=== PATIENT | male | born 1950 | race Caucasian/White ===

== ENCOUNTER 2021-04-23 01:19 | Outpatient (CLI) | payer MEDICARE, OTHER, SELFPAY ==
--- NOTE | 2021-04-23 | DI.RAD_ITS ---
Exam(s) XR CERVICAL SPINE 1V EXAM: XR CERVICAL SPINE 1V CLINICAL HISTORY: S/P CERVICAL SPINE FUSION,Z98.1. TECHNIQUE: 2D digital imaging was performed. COMPARISON: No exams were available for comparison FINDINGS: Single lateral view shows hardware spanning the C3-4 level with disc spacer. The alignment appears n ormal. There remaining discs spaces are well maintained. There are facet joint degenerative changes . There is no prevertebral soft tissue swelling.. IMPRESSION: Postsurgical and degenerative changes. DATA REPOSITORY: RADIATION DOSE DELIVERED:
== END 2021-04-23 01:39 ==
PROVIDERS: Visit Provider Physician Assistant Surgical
DX: Z98.1 Arthrodesis status (principal); M47.812 Spondylosis without myelopathy or radiculopathy, cervical region
CPT/HCPCS: 72020

== ENCOUNTER 2021-06-05 08:32 | Outpatient (CLI) | payer MEDICARE, OTHER, SELFPAY ==
[2021-06-05 10:44] LABS: Source Nasal/Nares
[2021-06-05 17:36] LABS: COVID-19 PCR Negative (Negative)
== END 2021-06-05 08:33 | disposition home or self-care (01) ==
LOC: LBO 08:32
PROVIDERS: Visit Provider Nurse Practitioner Primary Care
DX: Z20.822 Contact with and (suspected) exposure to COVID-19 (principal); Z01.818 Encounter for other preprocedural examination
CPT/HCPCS: 87635

== ENCOUNTER 2021-07-05 00:54 | Outpatient (CLI) | payer OTHER, SELFPAY ==
--- NOTE | 2021-07-05 | DI.RAD_ITS ---
Exam(s) XR CERVICAL SP FORTUNE TRAUMA 2-3V EXAM: XR CERVICAL SP FORTUNE TRAUMA 2-3V CLINICAL HISTORY: S/P CERVICAL SPINAL FUSION, Z98.1. TECHNIQUE: 2D digital imaging was performed. COMPARISON: CR XR CERVICAL SPINE 1V from 04/23/2021 FINDINGS: Three lateral views of cervical spine including neutral, flexion, and extension. Compared to 04/23/2021. Again noted is C3-4 level intervertebral disc space hardware device which appears in unchanged in pos ition. There is no significant prevertebral soft tissue swelling at this level. The most anterior a spect of the radiopaque device is flush with the anterior cortex of C4 on the three views. The most anterosuperior aspect of the device is less than 1 millimeter anterior to the anterior cortex of C3 a nd remain stable on all 3 images. There is no abnormal lucency around the screws in C3. Very subtle lucency seen around the screws in C4. With respect of the C3 and C4 vertebral bodies, these do not exhibit significant excursion with flexi on extension when compared to the neutral images. In addition, the contiguous vertebral body is also remain stable and without significant excursion on flexion and extension. There is moderate facet arthropathy, most evident at C4-5 level. IMPRESSION: DATA REPOSITORY: RADIATION DOSE DELIVERED:
--- NOTE | 2021-07-05 | DI.RAD_ITS ---
Exam(s) XR LUMBAR SPINE 1V ONLY EXAM: XR LUMBAR SPINE 1V ONLY CLINICAL HISTORY: S/P LUMBAR FUSION, Z98.1, LUMBAR STENOSIS WITH NEUROGENIC CLAUDICATION. TECHNIQUE: 2D digital imaging was performed. COMPARISON: No exams were available for comparison FINDINGS: Single lateral view: There is posterior fusion hardware at L4-5 level comprised of posterior fusion bars secured by intrap edicular screws at L4 and L5 levels. There is also an intervertebral disc space divide ower at L4-5 level which appears to be in satisfactory position. There is no listhesis. No prominent disc space narrowing evident at this level. However, higher up there is retrolisthesis of L1 upon L2 and L1 and L2 upon L3 and there is some disc space narrowing at these 2 levels, more so at L1-2 level. No hardware fracture. No osseous fractures nor radiographic evidence of osteomyelitis evident on thi s single. IMPRESSION: DATA REPOSITORY: RADIATION DOSE DELIVERED:
== END 2021-07-05 01:14 ==
PROVIDERS: Visit Provider Neurological Surgery
DX: M51.36 Other intervertebral disc degeneration, lumbar region (principal); Z98.1 Arthrodesis status; M48.062 Spinal stenosis, lumbar region with neurogenic claudication; M47.812 Spondylosis without myelopathy or radiculopathy, cervical region
CPT/HCPCS: 72020; 72040

== ENCOUNTER 2021-09-07 00:14 | Outpatient (CLI) | payer OTHER, SELFPAY ==
--- NOTE | 2021-09-07 11:19 | DI.RAD_ITS ---
Exam(s) XR LUMBAR SPINE FLEX/EXT ONLY EXAM: XR LUMBAR SPINE FLEX/EXT ONLY CLINICAL HISTORY: [facility]# [id number] S/P LUMBAR FUSION Z98.1 LUMBAR STENOSIS M48.062. TECHNIQUE: 2D digital imaging was performed of the lumbar spine. Two images were obtained. Lateral flexion and extension views were obtained. COMPARISON: CR XR LUMBAR SPINE 1V ONLY from 07/05/2021 FINDINGS: BONES: There again seen postsurgical changes of an L4-L5 posterior fusion. Vertebral bodies are unre markable. Endplate hypertrophic changes are seen in the lower thoracic and upper lumbar spine. Mult ilevel facet arthropathy is seen. DISKS: There is disc space narrowing at T12-L1 through L2-L3. ALIGNMENT: There is stable alignment of the lumbar spine with flexion and extension. There has been no significant change in alignment compared to the examination from 07/05/2021. No spondylolysis or s pondylolisthesis. SOFT TISSUE: Normal. IMPRESSION: Stable alignment of the lumbar spine. DATA REPOSITORY: RADIATION DOSE DELIVERED:
== END 2021-09-07 00:34 ==
PROVIDERS: Visit Provider Neurological Surgery
DX: M48.062 Spinal stenosis, lumbar region with neurogenic claudication (principal); Z98.1 Arthrodesis status
CPT/HCPCS: 72120

== ENCOUNTER 2022-04-07 10:03 | Emergency (ER) | payer OTHER, SELFPAY ==
[2022-04-07 10:07] VITALS: BP 111/58; PULSE 61; RESP 18; O2SAT 96
[2022-04-07 10:16] VITALS: TEMP 36.8
--- NOTE | 2022-04-07 11:00 | DI.RAD_ITS ---
Exam(s) XR SHOULDER LT COMPLETE 2+V EXAM: XR SHOULDER LT COMPLETE 2+V CLINICAL HISTORY: fall, ac deformity. TECHNIQUE: 2D digital imaging was performed. COMPARISON: No exams were available for comparison FINDINGS: 3 views No evidence of fracture or dislocation. Mild diminution of the subacromial space. No calcifications in the subacromial space. No obvious degenerative changes in the glenohumeral joint. Mild degenera tive changes in the AC joint. IMPRESSION: No fracture or dislocation. Mild diminution of the subacromial space. This may indicate rotator cuf f pathology. DATA REPOSITORY: RADIATION DOSE DELIVERED:
--- NOTE | 2022-04-07 11:00 | DI.CT_ITS ---
Exam(s) CT HEAD WO EXAM: CT HEAD WO CLINICAL HISTORY: fall on eliquis. TECHNIQUE: Imaging Protocol: Axial computed tomography images with coronal and sagittal reformatted images were created and reviewed COMPARISON: CT HEAD WITHOUT CONTRAST from 07/26/2017 FINDINGS: There are no skull fractures nor fluid in the visualized paranasal sinuses. There is no evidence of intracranial hemorrhage, mass effect, or shift of midline structures. There are no extra-axial fluid collections. The ventricles are not enlarged or shifted and there is no blo od within the ventricular system nor within the basal cisterns. There is an evolved right occipital-parietal lobe nonhemorrhagic infarct. No new mass effect. IMPRESSION: No acute intracranial hemorrhage, given the trauma history here. Evolved right occipital parietal infarct. This is more evident than on July 2017. RADIATION DOSE DELIVERED: 874.34mGy.cm Total DLP DATA REPOSITORY: All CT scans at this facility are submitted to the National Radiology Data Registry (NRDR) Dose Index Registry (DIR) with the [employer] ([employer]). RADIATION OPTIMIZATION: All CT scans at this facility use at least one of these dose optimization te chniques: automated exposure control; mA and/or kV adjustment per patient size (includes targeted exa ms where dose is matched to clinical indication); or iterative reconstruction.
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
--- NOTE | 2022-04-07 12:35 | DI.VRAD_ITS ---
PROCEDURE INFORMATION: Exam: CT Head Without Contrast Exam date and time: 04/07/2022 12:23 PM Age: 72 years old Clinical indication: Cough, R/O acute disease TECHNIQUE: Imaging protocol: Computed tomography of the head without contrast. COMPARISON: CT HEAD WITHOUT CONTRAST 07/26/2017 11:27 AM FINDINGS: Brain: Age-related involutional changes and chronic microvascular ischemic disease. Right parietal small chronic infarct. No evidence for acute transcortical infarct. No mass effect or midline shift. No extra-axial collection. No acute intracranial hemorrhage. Basal cisterns are patent. Cerebral ventricles: No ventriculomegaly. Paranasal sinuses: Visualized sinuses are unremarkable. No fluid levels. Mastoid air cells: Visualized mastoid air cells are well aerated. Bones/joints: Unremarkable. No acute fracture. Soft tissues: Unremarkable. IMPRESSION: No evidence for acute transcortical infarct, acute intracranial hemorrhage, or mass effect. Dictated and Authenticated by: Toby Sadler MD. Ordering:VARSHA Maldonado MD
--- NOTE | 2022-04-07 13:03 | DI.VRAD_ITS ---
PROCEDURE INFORMATION: Exam: XR Left Shoulder Exam date and time: 04/07/2022 12:30 PM Age: 72 years old Clinical indication: Other: Fall, ac deformity TECHNIQUE: Imaging protocol: Radiologic exam of the Left shoulder. Views: 2 or more views. COMPARISON: CR XR CERVICAL SP FORTUNE TRAUMA 2-3V 07/05/2021 10:10 AM FINDINGS: Bones/joints: There is no evidence of acute fracture. There is no evidence of joint malalignment or dislocation. Degenerative changes of the acromioclavicular joint. Soft tissues: No focal soft tissue swelling. IMPRESSION: 1. No evidence of acute fracture. 2. No evidence of acute dislocation. 3. Degenerative changes of the acromioclavicular joint. Dictated and Authenticated by: Joseph Ward MD. Ordering:VARSHA Maldonado MD
[2022-04-07 13:30] VITALS: BP 123/71; PULSE 60; RESP 17; O2SAT 96
== END 2022-04-07 14:10 | disposition home or self-care (01) ==
PROVIDERS: Emergency Provider Physician Assistant
DX: S49.92XA Unspecified injury of left shoulder and upper arm, initial encounter (principal); Z87.891 Personal history of nicotine dependence; Z86.711 Personal history of pulmonary embolism; Z79.01 Long term (current) use of anticoagulants; V18.4XXA Pedal cycle driver injured in noncollision transport accident in traffic accident, initial encounter
CPT/HCPCS: 99284; 70450; 73030

== ENCOUNTER 2022-08-08 07:06 | Day surgery (SDC) | payer OTHER, SELFPAY ==
--- NOTE | 2022-08-07 20:14 | W.PM.DSUDISC ---
Date of service: 08/08/22 Time of Service: 09:10 Discharge Plan Disposition Patient Disposition: Home Condition: Good Discharge Details Reason For Visit: EGD Attending Provider: Gideon Loyd Primary Care Provider: Romana Cox Home Meds and New Rx's Prescriptions: Continued Xiidra 5 % dropperette 1 drp ophthalmic (eye) BID Rx Instructions: administer approximately 12 hours apart diclofenac sodium [Arthritis Pain (diclofenac)] 1 % gel 2 g topical QID Rx Instructions: apply to single elbow, wrist or hand; for hand includes palm/fingers/back of hand loratadine 10 mg tablet 10 mg PO DAILY fluticasone propionate [Flonase Allergy Relief] 50 mcg/actuation spray,suspension 1 spray intranasal DAILY Rx Instructions: administer into each nostril epinephrine 0.3 mg/0.3 mL auto-injector 0.3 mg IM ONCE Rx Instructions: as a single dose; may repeat once finasteride 5 mg tablet 5 mg PO DAILY magnesium oxide 140 mg capsule 140 mg PO DAILY omeprazole 20 mg capsule,delayed release(DR/EC) 40 mg PO DAILY modafinil 200 mg tablet 200 mg PO BID PRN furosemide 80 mg tablet 80 mg PO DAILY lidocaine 5 % adhesive patch,medicated 1 patch topical DAILY Rx Instructions: leave on most painful area for up to 12 hrs tamsulosin [Flomax] 0.4 MG capsule 0.8 mg PO DAILY montelukast 10 MG tablet 10 mg PO DAILY acetaminophen [Tylenol] 325 MG tablet 325 - 650 mg PO PRN PRN (Reason: Pain Or Temperature) albuterol sulfate [ProAir HFA] 200 PUFF HFA aerosol inhaler 2 puff Inhalation BID PRN (Reason: Wheezing) oxybutynin chloride 10 mg tablet extended release 24hr 1 tab PO 1XD levothyroxine 25 MCG tablet 50 mcg PO DAILY Held Eliquis 2.5 MG tablet 2.5 mg PO BID Hold Instructions: Resume on 08/08/22. Discharge Instructions Additional Instructions: 1. If tolerated, consume a soft, low fiber diet for 1-2 days. [address] Do not drive, drink alcohol, operate machinery, make critical decisions, or do activities that require coordination or balance for 24 hours. 3. You may experience a sore throat for 24 to 48 hours. You may use throat lozenges or gargle with warm salt water to relieve the discomfort. 4. Because air was put into your stomach during the procedure, you may experience some belching. 5. Go directly to the emergency room if you notice any of the following: Develop chills (warm to touch), or if you have a thermometer and your temperature is above 101 Difficulty breathing or difficultly swallowing Persistent vomiting Severe abdominal pain, other than gas cramps Severe chest pain Black, tarry stools Any bleeding ? exceeding one tablespoon 6. Call your physician if the site where your intravenous was started becomes red, swollen, painful, and warm to touch. 7. Your physician has reviewed your pre-procedure medications. Please continue to take those medications as previously ordered. You will be given specific information/education regarding any changes to your medications before leaving. 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 I did not see any evidence of narrowing (or stricture) along the length of your esophagus. In fact, the esophagus appeared mostly normal. I did perform some biopsies around your gastroesophageal junction seen to carry the diagnosis of Land's esophagus on your previous endoscopy. I also saw 3 lesions within your stomach. I performed biopsies of these. I will notify you when we get the results of the pathology report.
--- NOTE | 2022-08-07 20:19 | W.PM.ENDDOP ---
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 PROCEDURE START TIME: 08:41 PROCEDURE END TIME: 08:54 FINDINGS: 3 polypoid lesions in the gastric antrum PROCEDURE DESCRIPTION: After the initiation of monitored anesthetic care, and with the assistance of a bite block, I advanced a standard gastroscope through the mouth past the hypopharynx and into the esophagus.? Under the direct vision of the scope, I advanced down the esophagus into the stomach.? Once I entered the stomach, I performed a brief inspection, followed by retroflexion towards the gastric cardia.? This appeared normal.? After that, I gently advanced the scope around the incisura angularis and examined the pylorus.? There were 3 masses in the gastric antrum, 2 of them being immediately adjacent to the pylorus. The largest was approximately 1.5 cm smallest was approximately 0.75 cm. None were ulcerated. The edges were not particularly heaped up. There were no visible vessels in any of the lesions. Although I believe it would be technically possible to resect these endoscopically, the 2 larger lesions to raise some concern. In that regard, I felt the safest thing to do at this point was performed biopsies to help establish the pathology. Therefore, I performed cold forcep biopsies of the lesions. There was minimal bleeding. I then gently desufflated some of the stomach, and withdrew the endoscope into the distal esophagus. The GE junction was around 49 cm. Z-line was mostly normal-appearing. Varying between 48 and 49 cm. I performed four-quadrant biopsies here. ?Finally, I withdrew the scope along the length of the esophagus taking great care to examine the entirety of the mucosa. There was some white particulate matter that was easily irrigated clear.? I did not appreciate any other abnormalities.
--- NOTE | 2022-08-08 07:03 | ANES.PREOP_ITS ---
General Info Date of Service Date Performed: 08/08/22 Height: 6 ft Weight: 81.9 kg Body Mass Index (BMI): 24.5 Surgical Procedure: Operation Date: 08/08/22 08:35 Proposed Procedure Side Surgeon p Gastroscopy with Biopsy, Possible Dilation Gideon Loyd MD Meds Allergies and Home Medications Allergies Allergy/AdvReac Type Severity Reaction Status Date / Time peanut Allergy Severe Anaphylaxsi Verified 08/08/22 07:24 s peas Allergy Severe Anaphylaxsi Verified 08/08/22 07:24 s tree nut Allergy Severe Anaphylaxsi Verified 08/08/22 07:24 s lisinopril AdvReac Verified 08/08/22 07:24 sutures Allergy Unknown Uncoded 08/08/22 07:24 Home Medication Medication Instructions Recorded montelukast 10 mg tablet 10 mg PO DAILY 01/25/13 tamsulosin 0.4 mg capsule (Flomax) 0.8 mg PO DAILY 01/25/13 apixaban 2.5 mg tablet (Eliquis) 2.5 mg PO BID 09/18/15 acetaminophen 325 mg tablet 325 - 650 mg PO PRN PRN Pain Or 09/22/15 (Tylenol) Temperature albuterol sulfate 90 mcg/actuation 2 puff inhalation BID PRN Wheezing 10/02/15 aerosol inhaler (ProAir HFA) levothyroxine 25 mcg tablet 50 mcg PO DAILY 12/14/17 oxybutynin chloride 10 mg 1 tab PO 1XD 04/07/22 tablet,extended release 24 hr diclofenac sodium 1 % topical gel 2 g topical QID 04/22/22 (Arthritis Pain (diclofenac)) fluticasone propionate 50 1 spray intranasal DAILY 04/22/22 mcg/actuation nasal spray,suspension (Flonase Allergy Relief) lifitegrast 5 % eye drops in a 1 drp ophthalmic (eye) BID 04/22/22 dropperette (Xiidra) loratadine 10 mg tablet 10 mg PO DAILY 04/22/22 finasteride 5 mg tablet 5 mg PO DAILY 06/11/22 magnesium oxide 140 mg capsule 140 mg PO DAILY 06/11/22 omeprazole 20 mg capsule,delayed 40 mg PO DAILY 06/11/22 release modafinil 200 mg tablet 200 mg PO BID PRN 06/20/22 furosemide 80 mg tablet 80 mg PO DAILY 07/08/22 lidocaine 5 % topical patch 1 patch topical DAILY 07/08/22 epinephrine 0.3 mg/0.3 mL 0.3 mg IM ONCE 07/23/22 injection, auto-injector Current Visit Medications: Current Medications Generic Name Dose Route Start Last Admin Trade Name Freq PRN Reason Stop Dose Admin Hyoscyamine Sulfate 0.125 mg 08/07/22 20:20 Hyoscyamine 0.125 Mg Sl/Oral/Chew SL DIRECTED PRN Ringer's Solution 1,000 mls @ 80 mls/hr 08/08/22 06:00 IV 09/06/22 23:59 [facility]ION [facility] IV Miscellaneous Supplies 1 each 08/08/22 06:00 Iv Access IV 09/06/22 23:59 DIRECTED JOY Ondansetron HCl 4 mg 08/07/22 20:20 Ondansetron 4 Mg/2 Ml Vial IVP Q4H PRN PRN Nausea / Vomiting Sodium Chloride 0 ml 08/08/22 06:00 Normal Saline Flush 10 Ml Syr IV 09/06/22 23:59 PRN PRN Sodium Chloride 0 ml 08/08/22 06:00 Normal Saline 10 Ml Vial IJ 09/06/22 23:59 DIRECTED PRN Sterile Water 0 ml 08/08/22 06:00 Water,Injection,Sterile 10 Ml Vial IJ 09/06/22 23:59 DIRECTED PRN PFSH Active Problems Active Problems: Problem Status Onset Code Intertrochanteric fracture of right hip 09/18/15 S72.141A Asthma J45.909 GERD (gastroesophageal reflux disease) K21.9 H/O tobacco use, presenting hazards to health Z87.891 H/O deep venous thrombosis Z86.718 h/o tia H/O surgical procedure Z98.89 Impacted esophageal foreign body T18.108A Traumatic arthropathy, left shoulder M12.512 Osteoarthritis of left knee M17.12 Land's esophagus without dysplasia K22.70 Benign neoplasm of skin D23.9 Osteoarthritis (arthritis due to wear and tear of joints) M19.90 Osteopenia M85.80 Dysphagia R13.10 Chronic GERD K21.9 Medical History Medical History Cerebrovascular disease Cervicalgia Chronic gingivitis, plaque induced Dermatitis Paresthesia of upper limb (07/12/13) Pityriasis lichenoides chronica Spinal stenosis, lumbar region with neurogenic claudication Medical History Comments:: Per patient after lung surgery in 2016 for pneumonia he went in to respiratory arrest from too much medication in the Recovery room. Surgical History Surgical History EGD - MAC (12/14/17) History of back surgery History of cervical spinal surgery History of lung surgery History of shoulder surgery Hx of fracture of femur s/p repair w/odessa placement Hx of tonsillectomy Hx of total knee arthroplasty Presence of automatic cardioverter/defibrillator (AICD) Tobacco Smoking/Tobacco Use Status: Former Tobacco Use Alcohol Alcohol Intake: never Substance Use Substance use: Never Substance use type: does not use Vital Signs and Lab Results Lab Results Blood Type / Crossmatch: No Data to Display Complete Blood Count: No Data to Display Complete Metabolic Panel: No Data to Display Liver Function Panel: No Data to Display Coagulation Panel: No Data to Display Cardiac Panel: No Data to Display Arterial Blood Gas: No Data to Display Venous Blood Gas: No Data to Display Pancreas Panel: No Data to Display Thyroid Panel: No Data to Display Infectious Disease: No Data to Display Blood Cultures: No Data to Display Toxicology Panel: No Data to Display Imaging and Studies Imaging and Studies Study information below may be from another EMR and interpreted by another provider. Please see original notes in EMR for more complete details. Echocardiogram Summary: See scanned [facility] records: ECHO this summer was stable to previous in 2020. Severe LA enlargement, moderate MR. Anesthesia Assessment and Plan Anesthesia History Personal History: No History of Anesthesia Complications and Other Family History: No Family History of Anesthesia Complications Exercise Tolerance Exercise Tolerance: Metabolic Equivalents<4 Pertinent Negatives Pertinent Negatives: No Symptoms of GERD Cardiac & Pulmonary Exam Cardiac Exam: Normal S1/S2 Heart Sounds Pulmonary Exam: Clear Bilateral Breath Sounds Implantable Cardiac Device Does patient have a Pacemaker or an ICD?: Yes Device Informatics Physician:: [employer] Reason for Placement:: See [facility] records Date of Last Device Interrogation:: 04/11 Airway Exam Known Difficult Airway: No Mallampati Class: 2 Mouth Opening: Normal (> 3cm) Thyromental Distance: Greater than 3 cm Neck Range of Motion: Limited ROM Neck Circumference: Normal Teeth Condition: Generalized Poor Dentition ASA Classification ASA Score: ASA 3 Emergency Case?: No NPO Status NPO Status: NPO Clears >2 hours, Solids >8 hours Anesthesia Plan Resuscitation Status: Full Code Anesthesia Technique: General Anesthesia Airway Planned: Natural Airway Monitors Used: Standard Monitors Preoperative Comments:: pHTN, moderate MR, Severe LA enlargement, many DVTs, TIAs, asthma, empyemas, respiratory arrest.
[2022-08-08 07:10] VITALS: BP 125/53; PULSE 55; RESP 18; TEMP 36.2; O2SAT 99
[2022-08-08] MEDS: Lactated Ringers 1,000 ML 80 ML IV (07:55)
[2022-08-08 08:20] VITALS: BMI 24.5
--- NOTE | 2022-08-08 08:48 | STOM_PTH ---
PATIENT: Mo Guevara LOC: [facility] U#:[id number] AGE/SX: 72/M ROOM: RE08/08/[address]: Gideon Loyd MD : 1950 BED: DIS: 08/08/2022 SPEC #: [id number] RECD: 08/08/22 12:11 STATUS: DEVENDRA RE #: [id number] KARINE: 08/08/22 08:[address]: Gideon Loyd DEPT: Surgical Specimen RECD BY: Erica Bland ENTERED: 08/08/22 12:12 SP TYPE: STOMACH OTHR DR: Rmoana Cox Tissues: 1 - STOMACH BIOPSY 2 - ESOPHAGUS BIOPSY Procedures: GROSS AND MICRO LEVEL 4 Comments: [id number]
[2022-08-08 09:02] VITALS: BP 105/60; PULSE 56; RESP 21; TEMP 36.3; O2SAT 95
[2022-08-08 09:40] VITALS: BP 136/79; PULSE 59; RESP 20; TEMP 36.2; O2SAT 98
--- NOTE | 2022-08-08 10:13 | W.ANESPOSTOP ---
Postoperative Evaluation Date, Time and Location Date Performed: 08/08/22 Time Performed: 10:13 Patient Location: Day Surgery Unit Vital Signs Most Recent Imported Vital Signs: Most Recent Vital Signs Temp Pulse Resp BP Pulse Ox 36.2 C L 59 L 20 136/79 98 08/08/22 09:40 08/08/22 09:40 08/08/22 09:40 08/08/22 09:40 08/08/22 09:40 Pain Score Most Recent Pain Score: Most Recent Pain Score Pain Level 0 08/08/22 09:40 Assessment Mental Status: Awake (Alert & Oriented to Patient Baseline) Airway and Respiratory Function: Patent airway with normal (patient baseline) respiratory exam Cardiovascular Function: Hemodynamically Stable Hydration Status: Adequately Hydrated Nausea & Vomiting: No Nausea or Vomiting Pain: Pt. Denies Any Pain Peripheral Nerve Block: Patient did not receive a nerve block
== END 2022-08-08 10:05 | disposition home or self-care (01) ==
PROVIDERS: PCP Physician Assistant; Visit Provider Surgery
PROC: 0D758ZZ Dilation of Esophagus, Via Natural or Artificial Opening Endoscopic (ICD-10-PCS; CPT 43239; principal; 2022-08-08 08:30)
DX: K22.70 Barrett's esophagus without dysplasia (principal); K31.89 Other diseases of stomach and duodenum; K21.9 Gastro-esophageal reflux disease without esophagitis; Z79.01 Long term (current) use of anticoagulants; Z86.718 Personal history of other venous thrombosis and embolism
CPT/HCPCS: 43239; 88305

== ENCOUNTER 2023-05-19 03:08 | Outpatient (CLI) | payer OTHER, SELFPAY ==
[2023-05-19 11:42] LABS: HCT 39.7 % (40.0-50.0); HGB 12.7 g/dL (13.5-17.5); MCH 31.2 pg (27.0-33.0); MCV 98 fL (80-95); MPV 9.8 fL (8.0-11.0); Platelet Count 106 10^3/uL (130-400); RBC 4.07 10^6/uL (4.36-5.78); RDW 13.2 % (11.8-14.1); RDW-SD 46.9 fL; WBC 4.77 10^3/uL (4.4-10.8)
[2023-05-19 12:02] LABS: Anion Gap 7.1 mmol/L (3-11); BUN 22 mg/dL (7-18); CO2 31.9 mmol/L (21.0-32.0); Calcium 9.2 mg/dL (8.5-10.1); Chloride 106 mmol/L (98-107); Estimated GFR 78.98 (mL/min/1.73m2); Glucose 92 mg/dL (74-106); Sodium 145 mmol/L (136-145)
== END 2023-05-19 03:09 | disposition home or self-care (01) ==
PROVIDERS: PCP Physician Assistant; Visit Provider Student in an Organized Health Care Education/Training Program
DX: M17.12 Unilateral primary osteoarthritis, left knee (principal); Z01.818 Encounter for other preprocedural examination
CPT/HCPCS: 36415; 80048; 85027

== ENCOUNTER 2023-05-19 11:44 | Outpatient (CLI) | payer OTHER, SELFPAY ==
--- NOTE | 2023-05-19 10:15 | DI.RAD_ITS ---
Exam(s) XR KNEE LT 1V XR STANDING ALIGNMENT EXAM: XR STANDING ALIGNMENT CLINICAL HISTORY: PRE OP L TKA. TECHNIQUE: 2D digital imaging was performed. Standing AP views were performed from the pelvis throu gh the ankles. COMPARISON: CR RIGHT FEMUR from 11/13/2015 CR KNEE 2 VIEWS (ROUTINE) from 06/05/2022 FINDINGS: BONES: No acute fracture is present. No bony destructive lesion is seen. Intramedullary odessa is noted through the right femur. Old fracture deformities of the distal tibia and fibula. Leg length discrepancy: Approximate 2 centimeter overall leg length discrepancy with the right femora l head projecting superior to the left. JOINTS: Knees: the right total knee prosthesis shows satisfactory alignment. Severe degenerative ch anges noted at the lateral femoral tibial joint space of the left knee with valgus angulation. Mild chondrocalcinosis. The ankle joints are unremarkable. The hip joints maintained. There is acetabular spurring, right greater than left. SOFT TISSUE: Bilateral lower leg edema. IMPRESSION: Severe degenerative changes of the lateral femoral tibial joint of the left knee.. Approximate 2 centimeter overall leg length discrepancy. DATA REPOSITORY: RADIATION DOSE DELIVERED:
== END 2023-05-19 11:45 | disposition home or self-care (01) ==
LOC: DIORS 11:44
PROVIDERS: PCP Physician Assistant; Visit Provider Physician Assistant
DX: M17.12 Unilateral primary osteoarthritis, left knee (principal); Z01.818 Encounter for other preprocedural examination
CPT/HCPCS: 73560; 77073

== ENCOUNTER 2023-06-03 07:32 | Observation (INO) | payer OTHER, SELFPAY ==
[2023-06-03] VITALS (15 sets, daily range): BP systolic 107–161; BP diastolic 44–79; PULSE 46–88; RESP 11–18; TEMP 35.6–36.5; O2SAT 94–99; BMI 22.8
[2023-06-03] MEDS: Celecoxib 200 MG CAP 400 MG PO (09:22)
[2023-06-03] MEDS: Acetaminophen 500 MG TAB 1000 MG PO ×3 (09:23→21:23)
[2023-06-03] MEDS: Lactated Ringers 1,000 ML 80 ML IV (09:23)
[2023-06-03] MEDS: Gabapentin 300 MG CAP PO (09:23)
--- NOTE | 2023-06-03 09:26 | ANES.PREOP_ITS ---
General Info Date of Service Date Performed: 06/03/23 Height: 6 ft Weight: 76.2 kg Body Mass Index (BMI): 22.8 Surgical Procedure: Operation Date: 06/03/23 11:40 Proposed Procedure Side Surgeon p Knee Total Arthroplasty w/OrthAlign, Cemented PS Left Jose Goldberg MD Meds Allergies and Home Medications Allergies Allergy/AdvReac Type Severity Reaction Status Date / Time peanut Allergy Severe Anaphylaxsi Verified 06/03/23 08:49 s peas Allergy Severe Anaphylaxsi Verified 06/03/23 08:49 s tree nut Allergy Severe Anaphylaxsi Verified 06/03/23 08:49 s amoxicillin Allergy Mild Skin Rash Verified 06/03/23 08:49 lisinopril AdvReac cough Verified 06/03/23 08:49 sutures Allergy Unknown inflammed Uncoded 06/03/23 08:49 Home Medication Medication Instructions Recorded montelukast 10 mg tablet 10 mg PO DAILY 01/25/13 tamsulosin 0.4 mg capsule (Flomax) 0.8 mg PO DAILY 01/25/13 apixaban 2.5 mg tablet (Eliquis) 2.5 mg PO BID 09/18/15 acetaminophen 325 mg tablet 325 - 650 mg PO PRN PRN Pain Or 09/22/15 (Tylenol) Temperature albuterol sulfate 90 mcg/actuation 2 puff inhalation BID PRN Wheezing 10/02/15 aerosol inhaler (ProAir HFA) levothyroxine 25 mcg tablet 50 mcg PO DAILY 12/14/17 oxybutynin chloride 10 mg 1 tab PO 1XD 04/07/22 tablet,extended release 24 hr diclofenac sodium 1 % topical gel 2 g topical QID 04/22/22 (Arthritis Pain (diclofenac)) fluticasone propionate 50 1 spray intranasal DAILY 04/22/22 mcg/actuation nasal spray,suspension (Flonase Allergy Relief) lifitegrast 5 % eye drops in a 1 drp ophthalmic (eye) BID 04/22/22 dropperette (Xiidra) loratadine 10 mg tablet 10 mg PO DAILY 04/22/22 finasteride 5 mg tablet 5 mg PO DAILY 06/11/22 magnesium oxide 140 mg capsule 140 mg PO DAILY 06/11/22 omeprazole 20 mg capsule,delayed 40 mg PO DAILY 06/11/22 release modafinil 200 mg tablet 200 mg PO BID PRN 12/01/22 furosemide 80 mg tablet 80 mg PO DAILY 07/08/22 lidocaine 5 % topical patch 1 patch topical DAILY 07/08/22 epinephrine 0.3 mg/0.3 mL 0.3 mg IM ONCE 07/23/22 injection, auto-injector bisoprolol fumarate 5 mg tablet 5 mg PO DAILY 03/20/23 eplerenone 25 mg tablet 25 mg PO DAILY 05/19/23 fluticasone 100 mcg-salmeterol 50 1 inh inhalation BID 06/03/23 mcg/dose blistr powdr for inhalation (Advair Diskus) Current Visit Medications: Current Medications Generic Name Dose Route Start Last Admin Trade Name Freq PRN Reason Stop Dose Admin Acetaminophen 1,000 mg 06/03/23 06:00 06/03/23 09:23 Acetaminophen 500 Mg Tab PO 06/03/23 16:00 1,000 mg PREOP JOY Administration Acetaminophen 1,000 mg 06/03/23 14:00 Acetaminophen 500 Mg Tab PO 07/03/23 13:59 TID JOY Albuterol Sulfate 2 puff 06/03/23 07:36 Albuterol Hfa 8 Gm 60 Puff Inh IH 07/03/23 07:35 BID PRN PRN Wheezing Apixaban 2.5 mg 06/04/23 08:30 Apixaban 2.5 Mg Tab PO 07/04/23 08:29 BID JOY Bisoprolol Fumarate 5 mg 06/03/23 08:30 Bisoprolol 5 Mg Tab PO 07/03/23 08:29 DAILY [facility] Celecoxib 400 mg 06/03/23 06:00 06/03/23 09:22 Celecoxib 200 Mg Cap PO 06/03/23 16:00 400 mg PREOP JOY Administration Celecoxib 200 mg 06/03/23 20:00 Celecoxib 200 Mg Cap PO 07/03/23 19:59 BID [facility] Device 1 each 06/03/23 08:00 Inhaler, Assist Device MC 07/03/23 07:59 DIRECTED [facility] Dexamethasone 4 mg 06/04/23 08:30 Dexamethasone 4 Mg Tab PO 06/05/23 08:31 DAILY JOY Epinephrine 0.3 mg 06/03/23 08:00 Epinephrine 0.3 Mg Kit IM 07/03/23 07:59 ONCE JOY Finasteride 5 mg 06/03/23 08:30 Finasteride 5 Mg Tab PO 07/03/23 08:29 DAILY JOY Fluticasone Propionate gm 06/03/23 08:30 Fluticasone Nasal [place] 16 Gm Btl NS 07/03/23 08:29 DAILY JOY Furosemide 80 mg 06/03/23 08:30 Furosemide 80 Mg Tab PO 07/03/23 08:29 DAILY JOY Gabapentin 300 mg 06/03/23 06:00 06/03/23 09:23 Gabapentin 300 Mg Cap PO 06/03/23 16:00 300 mg PREOP JOY Administration Hydromorphone HCl 0.5 mg 06/03/23 07:32 Hydromorphone 2 Mg/Ml Syr IVP 07/03/23 07:31 Q2H PRN PRN Tranexamic Acid 1,000 mg/ 60 mls @ 360 mls/hr 06/03/23 06:00 Sodium Chloride IVPB 06/03/23 16:00 PREOP JOY Ringer's Solution 1,000 mls @ 80 mls/hr 06/03/23 06:00 06/03/23 09:23 IV 07/02/23 23:59 80 mls/hr INFUSION JOY Administration Cefazolin Sodium/Dextrose 2 gm in 50 mls @ 100 mls/hr 06/03/23 06:00 Ancef Duplex IVPB 06/03/23 16:00 PREOP JOY Cefazolin Sodium/Dextrose 1 gm in 50 mls @ 100 mls/hr 06/03/23 08:00 Ancef Duplex IVPB 06/04/23 00:29 Q8H JOY IV Miscellaneous Supplies 1 each 06/03/23 06:00 Iv Access IV 07/02/23 23:59 DIRECTED JOY Levothyroxine Sodium 50 mcg 06/03/23 08:30 Levothyroxine 25 Mcg Tab PO 07/03/23 08:29 DAILY JOY Lidocaine 1 patch 06/03/23 08:30 Lidocaine 5% Patch TP 07/03/23 08:29 DAILY JOY Loratadine 10 mg 06/03/23 08:30 Loratidine 10 Mg Tab PO 07/03/23 08:29 DAILY JOY Montelukast Sodium 10 mg 06/03/23 08:30 Montelukast 10 Mg Tab PO 07/03/23 08:29 DAILY JOY Non-Formulary Medication 140 mg 06/03/23 08:30 Magnesium Oxide PO 07/03/23 08:29 DAILY JOY Non-Formulary Medication 1 tab 06/03/23 07:45 Oxybutynin Chloride PO 07/03/23 07:44 1XD [facility] Non-Formulary Medication 2 gm 06/03/23 08:30 Diclofenac Sodium [Arthritis Pain (Diclofenac)] TP 07/03/23 08:29 QID [facility] Non-Formulary Medication 25 mg 06/03/23 08:30 Eplerenone PO 07/03/23 08:29 DAILY [facility] Non-Formulary Medication 1 drp 06/03/23 08:30 Lifitegrast [Xiidra] OP 07/03/23 08:29 BID [facility] Non-Formulary Medication 200 mg 06/03/23 07:36 Modafinil PO BID PRN Omeprazole 40 mg 06/03/23 08:30 Omeprazole 20 Mg Capcr PO 07/03/23 08:29 DAILY JYO Ondansetron HCl 4 mg 06/03/23 07:32 Ondansetron 4 Mg/2 Ml Vial IVP 07/03/23 07:31 Q6H PRN PRN Nausea Oxycodone HCl 0 mg 06/03/23 07:32 Oxycodone 5 Mg Tab PO 07/03/23 07:31 Q3H PRN PRN Pain Pantoprazole Sodium 40 mg 06/04/23 07:30 Pantoprazole 40 Mg Tabcr PO 07/04/23 07:29 DAILY@0730 JOY Polyethylene Glycol 17 gm 06/03/23 07:32 Polyethylene Glycol 3350 17 Gm Packet PO 07/03/23 07:31 BID PRN PRN Constipation Sodium Chloride 0 ml 06/03/23 06:00 Normal Saline Flush 10 Ml Syr IV 07/02/23 23:59 PRN PRN Sodium Chloride 0 ml 06/03/23 06:00 Normal Saline 10 Ml Vial IJ 07/02/23 23:59 DIRECTED PRN Sterile Water 0 ml 06/03/23 06:00 Water,Injection,Sterile 10 Ml Vial IJ 07/02/23 23:59 DIRECTED PRN Tamsulosin HCl 0.8 mg 06/03/23 08:30 Tamsulosin 0.4 Mg Capcr PO 07/03/23 08:29 DAILY [facility] PFS Active Problems Active Problems: Problem Status Onset Code 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 Cardiomyopathy I42.9 Intertrochanteric fracture of right hip 09/18/15 S72.141A Asthma J45.909 GERD (gastroesophageal reflux disease) K21.9 H/O tobacco use, presenting hazards to health Z87.891 H/O deep venous thrombosis Z86.718 h/o tia Impacted esophageal foreign body T18.108A Traumatic arthropathy, left shoulder M12.512 Osteoarthritis of left knee M17.12 Land's esophagus without dysplasia K22.70 Benign neoplasm of skin D23.9 Osteoarthritis (arthritis due to wear and tear of joints) M19.90 Osteopenia M85.80 Dysphagia R13.10 Chronic GERD K21.9 Medical History Medical History EUSEBIA (obstructive sleep apnea) CPAP intolerant - inspire implants DOS: 10/24/2022 Hypothyroidism Liver fibrosis Right heart failure Spinal stenosis, lumbar region with neurogenic claudication Pityriasis lichenoides chronica Dermatitis Chronic gingivitis, plaque induced Cervicalgia Cerebrovascular disease 04/09/2005 Paresthesia of upper limb (07/12/13) Medical History Comments:: Per patient after lung surgery in 2015 for pneumonia he went in to respiratory arrest from too much medication in the Recovery room. Has Inspire Implant in situ for EUSEIBA Surgical History Surgical History History of hand surgery Bilateral hand ligament repairs ~2015 and ~2016 History of nasal septoplasty (~2019) H/O umbilical hernia repair History of lung surgery VATS Hx of fracture of femur s/p right repair w/odessa placement Hx of total knee arthroplasty (09/03/98) History of shoulder surgery (2012) Right hemiarthroplasty Hx of tonsillectomy History of cervical spinal surgery History of back surgery L4-L5 Presence of automatic cardioverter/defibrillator (AICD) (12/17/17) s/p right coronary cusp PVD ablation AICD EGD - MAC (12/14/17) Tobacco Smoking/Tobacco Use Status: Former Tobacco Use Alcohol Alcohol Intake: former Substance Use Substance use: Never Substance use type: does not use Vital Signs and Lab Results Vital Signs Most Recent Vital Signs in EMR: Most Recent Vital Signs Temp Pulse Resp BP Pulse Ox 36.3 C L 50 L 16 121/46 L 98 06/03/23 09:06 06/03/23 09:06 06/03/23 09:06 06/03/23 09:06 06/03/23 09:06 Lab Results Blood Type / Crossmatch: No Data to Display Complete Blood Count: White Blood Count 4.77 10^3/uL (4.4-10.8) 05/19/23 11:30 Red Blood Count 4.07 10^6/uL (4.36-5.78) L 05/19/23 11:30 Hemoglobin 12.7 g/dL (13.5-17.5) L 05/19/23 11:30 Hematocrit 39.7 % (40.0-50.0) L 05/19/23 11:30 Platelet Count 106 10^3/uL (130-400) L 05/19/23 11:30 Complete Metabolic Panel: Sodium 145 mmol/L (136-145) 05/19/23 11:30 Potassium 4.0 mmol/L (3.5-5.1) 05/19/23 11:30 Chloride 106 mmol/L (98-107) 05/19/23 11:30 Carbon Dioxide 31.9 mmol/L (21.0-32.0) 05/19/23 11:30 BUN 22 mg/dL (7-18) H 05/19/23 11:30 Creatinine 1.0 mg/dL (0.70-1.30) 05/19/23 11:30 Est GFR (CKD-EPI 2020) 78.98 (mL/min/1.73m2) 05/19/23 11:30 Calcium 9.2 mg/dL (8.5-10.1) 05/19/23 11:30 Glucose 92 mg/dL (74-106) 05/19/23 11:30 Liver Function Panel: No Data to Display Coagulation Panel: No Data to Display Cardiac Panel: No Data to Display Arterial Blood Gas: No Data to Display Venous Blood Gas: No Data to Display Pancreas Panel: No Data to Display Thyroid Panel: No Data to Display Infectious Disease: No Data to Display Blood Cultures: No Data to Display Toxicology Panel: No Data to Display Imaging and Studies Imaging and Studies Study information below may be from another EMR and interpreted by another provider. Please see original notes in EMR for more complete details. Echocardiogram Summary: See scanned [facility] records: ECHO Sept. 2023 no significant changes from previous in 12/2021. Severe LA enlargement, moderate MR. EF 50%, normal RV size and function. Anesthesia Assessment and Plan Anesthesia History Personal History: No History of Anesthesia Complications Family History: No Family History of Anesthesia Complications Exercise Tolerance Exercise Tolerance: Metabolic Equivalents<4 Pertinent Negatives Pertinent Negatives: No Symptoms of GERD, No Major Cardiovascular Symptoms or Complaints and No Major Pulmonary Symptoms or Complaints Cardiac & Pulmonary Exam Cardiac Exam: Normal S1/S2 Heart Sounds Pulmonary Exam: Clear Bilateral Breath Sounds Cardiac and Pulmonary Comment:: EUSEBIA-INSPIRE device Implantable Cardiac Device Does patient have a Pacemaker or an ICD?: Yes Device Global Security Architect:: [employer] Reason for Placement:: Cardiomyopathy. Ablation. Date of Last Device Interrogation:: 05/01/23 Airway Exam Known Difficult Airway: No Mallampati Class: 2 Mouth Opening: Normal (> 3cm) Thyromental Distance: Greater than 3 cm Neck Range of Motion: Limited ROM (kyphosis, limited extension) Neck Circumference: Normal Teeth Condition: Generalized Poor Dentition (none loose per pt) ASA Classification ASA Score: ASA 3 Emergency Case?: No NPO Status NPO Status: NPO Clears >2 hours, Solids >8 hours Anesthesia Plan Resuscitation Status: Full Code Anesthesia Technique: Spinal Anesthesia Airway Planned: Natural Airway Pain Management: Surgeon and patient request nerve block Monitors Used: Standard Monitors Preoperative Comments:: 73 yo male, apical noncompaction cardiomyopathy, mitral valve prolapse with moderate mitral regurgitation, LE venous insuff. d/t many DVT's, liver fibrosis. low platelets (106 on 05/19/23), TIA, ventricular arrythmias, VATS 2016 for empyema, EUSEBIA- INSPIRE device implanted
--- NOTE | 2023-06-03 10:08 | W.ANESNERVE ---
Nerve Block Single Injection Procedure Date and Time Date Performed: 06/03/23 Procedure Start: 09:59 Location Where Procedure Performed Procedure Location: Day Surgery Unit Reason Performed: Postoperative Analgesia Requesting Provider: Jose Goldberg Timeout Performed Timeout Performed: Yes Monitoring Used ECG, Blood Pressure, SpO2 and See EMR for corresponding vital signs Sterility Sterility: Hand Hygiene, Surgical Cap, Surgical Mask, Sterile Gloves, Sterile Drape/Sheet and Chlorhexidine Sedation Given During Procedure Sedation Given (Indicate Dose Given): No Sedation given Patient Mental Status Patient Mental Status: Awake Nerve Block 1st Nerve Block: Laterality: Left Block Type: Adductor Canal Ultrasound Image Saved?: Yes Needle / Catheter Used: 100mm SonoPlex II Local Anesthetic Bolus (Indicate Dose Given): Lidocaine used for local infiltration of skin, Injected in 3-5ml increments after negative blood aspiration and Bupivacaine 0.25% Dose:: 15 ml Additives (Indicate Dose Given): None Ultrasound: Sterile probe cover and gel used Nerve Stimulator: Not Used Paresthesia: None Procedure Tolerated: No Complications and Patient tolerated well Procedure Outcome: Successful Performed By: Tashia Abebe
[2023-06-03] MEDS: ceFAZolin 2 GM/50 ML BAG IVPB (10:39)
[2023-06-03] MEDS: fentaNYL 100 MCG/2 ML VIAL IVP ×2 (13:08→13:24)
--- NOTE | 2023-06-03 13:38 | W.ANESPOSTOP ---
Postoperative Evaluation Date, Time and Location Date Performed: 06/03/23 Time Performed: 13:32 Patient Location: PACU Vital Signs Most Recent Imported Vital Signs: Most Recent Vital Signs Temp Pulse Resp BP Pulse Ox 36.5 C 54 L 11 L 124/60 96 06/03/23 13:31 06/03/23 13:31 06/03/23 13:31 06/03/23 13:31 06/03/23 13:31 Pain Score Most Recent Pain Score: Most Recent Pain Score Pain Level 4 06/03/23 13:31 Assessment Mental Status: Awake (Alert & Oriented to Patient Baseline) Airway and Respiratory Function: Patent airway with normal (patient baseline) respiratory exam Cardiovascular Function: Hemodynamically Stable Hydration Status: Adequately Hydrated Nausea & Vomiting: No Nausea or Vomiting Pain: Pain is tolerable per patient Peripheral Nerve Block: Regional nerve block not resolved at time of post operative discharge
[2023-06-03] MEDS: Furosemide 40 MG TAB 80 MG PO (15:40)
[2023-06-03] MEDS: Diclofenac 1% Gel 100 GM TUBE TP ×2 (15:41→21:24)
[2023-06-03] MEDS: ceFAZolin 1 GM/50 ML BAG IVPB ×2 (15:41→23:40)
--- NOTE | 2023-06-03 16:40 | IN_ITS ---
PT Notes Visit Reasons: Left knee DJD Physical Therapy Inpatient Initial Evaluation Date: 06/03/2023 Referring Doctor: SRIRAM Hernandes PT Orders: PT CONSULT: S/P Ortho Surgery Precautions: Fall. Standard. WBAT on the L LE with AD. 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 PMHX: Medical History (Updated 05/19/23 @ 11:07 by Janice Mackay) Hypothyroidism Liver fibrosis Right heart failure Spinal stenosis, lumbar region with neurogenic claudication Pityriasis lichenoides chronica Dermatitis Chronic gingivitis, plaque induced Cervicalgia Cerebrovascular disease 04/09/2005 Paresthesia of upper limb (07/12/13) Surgical History (Updated 05/19/23 @ 11:19 by Janice Mackay) History of hand surgery Bilateral hand ligament repairs ~2015 and ~2016 History of nasal septoplasty (~2019) EUSEBIA (obstructive sleep apnea) CPAP intolerant - inspire implants DOS: 10/24/2022 H/O umbilical hernia repair History of lung surgery VATS Hx of fracture of femur s/p right repair w/odessa placement Hx of total knee arthroplasty (09/03/98) History of shoulder surgery (2012) Right hemiarthroplasty Hx of tonsillectomy History of cervical spinal surgery History of back surgery L4-L5 Presence of automatic cardioverter/defibrillator (AICD) (12/17/17) s/p right coronary cusp PVD ablation AICDEGD - MAC (12/14/17) Social History/Home Situation: Lives with in a private home with 3 steps to enter and rails on B sides. Independent without AD indoors, uses SPC outdoors. Equipment Owned/DME: FWW, SPC, walking sticks Subjective: Reports 5-6/10 pain in the L knee at rest and with movement. Denies headache, chest pain, and lightheadedness throughout session. Wondering if he could use the bathroom before session to void urine. Nurse Falguni states that she patient has taken Tylenol prior to PT visit. Objective: General Observation: Resting in bed. IV through R UE. Mental Status: Alert and oriented as to person, place, time, and purpose. Able to pay attention, focus, and respond appropriately. Pain: As above Vital Signs: Closely monitored by nursing staff; WNL as of 15:34 PM; HR at 47 bpm ROM: Right Lower Extremity: Hip flexion WFL. Hip abduction WFL. Knee flexion WFL. Ankle dorsiflexion WFL. Ankle plantarflexion WFL. Left Lower Extremity: Hip flexion WFL. Hip abduction WFL. Knee flexion 20 degrees to 90 degrees actively. Knee extension 20 degrees actively.Ankle dorsiflexion WFL. Ankle plantarflexion WFL. Strength: Right Lower Extremity: Hip flexors 4/5. Hip abductors 4/5. Knee flexors 4/5. Kne e extensors 4/5. Ankle dorsiflexors 4-/5. Ankle plantarflexors 4-/5. Left Lower Extremity: Hip flexors 4-/5. Hip abductors 4-/5. Knee flexors 3-/5. Knee extensors 3-/5. Ankle dorsiflexors 4-/5. Ankle plantarflexors 4-/5. Bed Mobility/Transfers: Adjusted FWW to apprropriate height. Minimal cues provided for movement sequence, use of B UE for needed support/independence and safety Rolling stand by assist Supine to sit stand by assist with HOB at 30 degrees Sit to stand stand by assist with FWW Stand to sit stand by assist with FWW Bed to toilet seat with stand by assist with FWW Toilet seat to bedside recliner stand by assist with FWW Gait: Facilitated safe and correct performance of level surface ambulation covering a distance 250 feet using front-wheeled walker with minimal cues provided for AD management, posture, and increased flexion on the left side during swing phase of gait; contact-guard assist provided. Stairs: Training will be performed tomorrow before discharge Balance: Static Sitting: Normal Dynamic Sitting: Normal Static Standing: Fair Dynamic Standing: Fair Special Tests: Mobility Limitations Standardized Measure [facility] AM-PAC 6 clicks Basic Mobility Inpatient Short Form: Raw Score: 22 CMS Score: 21% deficit Informed Consent/Education: Patient was instructed in purpose of PT consult and plan of care. Agreeable to proceed with established PT POC to achieve personal goals. ASSESSMENT: Patient requires the use of a FWW for all mobility ADL performance to maximize indepdnence and redue fall risk. Patient presents with clinical signs and symptoms consistent with current/admitting diagnoses that have resulted to mobility limitations, gait instability, generalized weakness, and overall ADL decline as demonstrated by the following impairment level findings: 1. Decreased strength to L knee major muscle groups 2. Impaired sitting/standing balance 3. Impaired activity tolerance 4. Limitation of joint range of motion in L knee 5. Pain at 5-6/10 in L knee Impairments are contributing to the following functional limitations: 1. Decline in bed mobility skills 2. Decline in transfer skills 3. Difficulty with ambulation without assistive device 4. Increased completion time for mobility ADL performance 5. Increased risk for falls 6. Difficulty with managing steps alone safely Patient is assessed as a 88813 moderate complexity based on the following: History: 73-year-old male with past medical history as indicated above Examination: Demonstrable impairment in strength, balance, and mobility level with underlying impairments and functional limitations as exhibited above as well as deficit score of 21% utilizing the [facility] Mobility Inpatient Short Form Presentation: Evolving Decision Makin moderate complexity Goals: Goals X1 week 1. Supine-Sit independent 2. Sit-Supine independent 3. Sit-Stand independent 4. Stand-Sit independent with FWW 5. Bed-Chair independent with FWW 6. Chair-Bed independent with FWW 7. Independent gait on level surface with use of FWW for at least 300 feet without report of pain nor dyspnea 8. Independent stair negotiation while holding onto B rails for at least 3 steps without report of pain nor dyspnea 9. Independent with home exercise program 10. Good static and dynamic standing balance/tolerance Plan of Care/Treatment Plan: 1-2x/day, 7 days/week x 1 week. Will ensure that patient is seen for 1-2 more sessions for stair negotiation training and HEP instruction before discharge. DISCHARGE RECOMMENDATIONS: [] Home with no services [] [] Home with services [specify] [X] Home with outpatient PT. home when medically cleared by orthopedic surgeon. Recommend outpatient PT services in order to optimize functional mobility outcomes and facilitate return to independent community ambulation without an assistive device. [] SNF for continued rehabilitation [] [] Jail Care [] [] SNF versus LTC based on ability to participate and progress [] TREATMENT CODE/TIME: 43676 x 20 minutes for 1 unit, 13463 x 23 minutes for 2 units beginning at 15:50 PM. Thank you for the opportunity to participate in the care of this patient. Maria G Jimenez PT, DPT, CLT [facility], [place]
[2023-06-03] MEDS: Celecoxib 200 MG CAP PO (21:22)
[2023-06-03] MEDS: Bisoprolol 5 MG TAB PO (21:23)
[2023-06-03] MEDS: Lidocaine 5% Patch 1 PATCH TP (21:24)
--- NOTE | 2023-06-03 21:54 | ROE_ITS ---
Date of service: 06/03/23 Time of Service: 10:45 Operative Note Operative Note DATE OF PROCEDURE: 06/03/23 PRE-OP DIAGNOSIS: Left Knee Arthritis with Valgus Deformity POST-OP DIAGNOSIS: same PROCEDURE: Left Total Knee Arthroplasty with Intraoperative Navigation SURGEON: Jose Goldberg MEDIUM CYCLE SALESPERSON: Marissa Anne ANESTHESIA TYPE: Spinal Refer to Anesthesia Record ESTIMATED BLOOD LOSS: 300 PATHOLOGY: none sent TOURNIQUET TIME: 0 COMPLICATIONS: None Patient was transported to: PACU Patient's condition: stable Implants: 1. Depuy Attune Cruciate Retaining Femoral Component, Size 7 2. Depuy Attune Fixed Bearing Tibial Component, Size 7 3. Depuy Attune 7x12 CR, FB Poly 4. Depuy Attune Patellar Component, Size 38 Indications: I have seen Cornelius in clinic for symptoms of knee arthritis, confirmed with radiographic findings. Cornelius has exhausted nonoperative methods and was having significant limitations in daily function and desired better function and less pain. I discussed the technical details of a knee replacement. I explained the risks of the procedure to include, but not limited to, bleeding, infection, pain, stiffness, fracture, damage to nerves and vessels, damage to muscles and tendons, loosening, need for repeat procedure, blood clot and cardiopulmonary demise. Despite these risks, Cornelius elected to proceed. Findings: There was significant signs of arthritis throughout the knee with a valgus deformity and hyperextension. Procedure Description: Cornelius was greeted in the preoperative holding area where the correct side was identified and marked. The consent was reviewed with the patient and signed. The history and physical was updated. All questions were answered. Preoperative mediacations were administered: Acetaminophen 1000mg, Celebrex 400mg, Gabapentin 300mg, and Oxycontin 10mg. An adductor canal block was then administered by the anesthesia team in the PACU. Cornelius was taken back to the operating room. A spinal anesthestic was then administered. The patient was placed into the supine position on the operating room table. A nonsterile tourniquet was placed high onto the leg but only used for cementing. Posts were placed for positioning during the procedure. All bony prominences were well padded. Prophylactic antibiotics in the form of Cefazolin were administered. 1g of Tranxemic Acid was given intravenously within 30 minutes of incision. The left leg was then prepped with Chloraprep and draped in a standard fashion with impervious stockinette and extremity drape with Iodine impregnated skin protection. A timeout to confirm correct identity, side and site, procedure, allergies, anesthesia, and medical concerns was performed. With the knee in some flexion, a midline incision was made overlying the knee. Full thickness skin flaps were raised once the extensor mechanism was encountered. These were raised medially and laterally. Any bleeding was controlled with electrocautery. Once the extensor mechanism was fully exposed, a medial parapatellar arthrotomy was performed in a flexed position. All bleeding from the arthrotomy and the geniculate arteries was coagulated. A medial subperiosteal peel was performed with electrocautery to the midcoronal plane. The fat pad was removed while keeping the patellar tendon protected. The anterior distal femur synovium was removed for later visualization. The ACL and PCL were resected and the anterior horn of the lateral meniscus was transected. The knee was then flexed with the patella everted. Large osteophytes from the tibia were removed. Large osteophytes from the femur were removed. A single starting pin was then placed 1cm anterior to the PCL insertion and the notch in the direction of the femoral head. The OrthoAlign device was applied over the pin. It was oriented to be in line with the epicondylar axis and the trochlear groove. It was then pinned into place. The navigation computer was then turned on and calibrated. The distal femur cut was set at 0 degrees varus/valgus and 3.5 degrees flexion. The distal femur cutting guide then was positioned for a 9mm cut. The distal femur was cut with an oscillating saw while protecting the soft tissues. The tibia was then addressed. The OrthoAlign device was placed over the tibial tubercle and medial tibia and secured into position. Once again, OrthoAlign was calibrated and then set for a 1 degree varus cut and 5 degrees of posterior slope. With this locked into position, the cut thickness stylus was used to assess cut thickness. This was then held in position and pinned into place with 2 additional pins and a cross pin for stability. The medial and lateral collateral ligaments were protected and the cut was performed. With this completed, it was assessed and noted to be of appropriate dimensions. The guide and OrthoAlign was removed. A spacer block was inserted and the knee was brought into extension. The 10mm spacer block provided full extension, without hyperextension and with stability of both the medial and lateral collateral ligaments was assessed. The pins from the femur and the tibia were then removed. The Ortholign gap balancing device was then utilized. This showed an extension gap of about 21 to 22 mm. This was used to set the flexion gap to thickness of 9 mm and rotation set parallel to the proximal tibia. Using an implant specific guide, 2 pins were placed. The femur was then sized as a size 7. The 4-in-1 cutting block was placed on the distal femur. An estephania wing was used to confirm appropriate position of the anterior cut to avoid notching. This cutting guide was ensured to be flush on the cut surface and then pinned into place with headed pins. While protecting the soft tissues, quad tendon, and collateral ligaments, the anterior and posterior cuts were performed with a saw. The central two pins were removed and the posterior and anterior chamfers were cut next. The notch-cutting guide was placed. This was pinned to lateralize the femoral component as much as possible while keeping it flush on the cut surface. This was then pinned into position. A reciprocating saw was used to make the notch cut. A rasp smoothed the cut surfaces. A trial posterior stabilized femoral component was then inserted, impacted down to the cut surfaces, and the lug holes were drilled. A provisional trial tibial component was placed and the knee was brought through range of motion. The polyethylene was trialed until there was good flexion and extension with excellent stability to the medial and lateral collaterals. The patella was tracking without thumbs. The tibial cut surface was fully exposed. The medial and lateral menisci were removed. The tibia was then sized as a 7. The tibia had been previously marked during trialing to correspond to the center of the tibial component to help with rotation. The trial was aligned to this shea, approximately rotated to the medial 1/3rd of the tibial tubercle. The trial was pinned into place. The tibia was prepared with a reamer and a keel punch. The knee was then brought into extension and the patella was measured as 28mm. Using the patellar clamp and cut guide, this was resected to a flat surface with at least 13mm of thickness remaining. The size 38 patella fit the best. This was oriented and then clamped into position. The lugs were drilled. The trial components were removed. The final components, except for the polyethylene were opened on the back table. The periosteal and capsular tissues, especially posteriorly, around the knee were then systematically injected with a periarticular cocktail consisting of 246mg of Ropivacaine, 0.5mg of Epinephrine, 0.08mg of Clonidine, and 30mg of Ketorolac, diluted to 100cc. The tourniquet was then inflated to 275mmHg. The knee was thoroughly irrigated with a pulse lavage and dried. On the back table, with the implants opened, the cement was mixed. 2 batches of medium viscosity cement were prepared with vacuum assistance. After the cement was ready a small amount was placed on to the back side of the tibial component at the keel. A small amount was placed onto the posterior flange of the femur. Cement was manual pressurized and impregnated into the cut surface of the tibia. The tibial component was then inserted into the cut surface and impacted into position. Excess cement was removed and the component was reimpacted. Again, excess cement was removed and our attention was then turned to the femur. The femoral cut surface was once again dried and cement was manually impacted into the cut surface. The femoral component was lined with the lug holes and impacted. Excess cement was removed. It was ensured to be down against the cut surface. The trial polyethylene was then inserted and the leg was brought out into full extension for the duration of the cement curing process, approximately 18min. Cement was lastly manually impacted into the cut surface of the patella and the patellar button was clamped into position and held. During this process attention was turned to the gutters of the knee and for all interfaces for any excess cement. The knee was then thoroughly irrigated with Surgiphor chlorhexadine solution. It was allowed to sit in the knee for 3 minutes before being irrigated out with saline. After the cement had finally cured, approximately 18min, the clamp was removed from the patella and the knee was taken through range of motion. A size 12mm polyethylene component provided the best range of motion and stability with less than 2mm gapping with medial and lateral stress and full extension without significant hyperextension. The patella was tracking with a no-thumbs technique. The trial poly was removed and once again the knee was checked for any loose, excess, or errant cement. The poly component was then inserted into position after cleaning and drying the tibial tray. The capsule was then reapproximated with a No. 1 Vicryl at multiple locations. The capsule was finally closed with a No. 2 Stratafix, barbed suture. The tourniquet was then released and the arthrotomy appeared watertight without significant bleeding. The second dosing of 1g TXA was started. Deep tissues were then reapproximated with 0 Vicryl and 2-0 Vicryl. The skin was closed with a running 3-0 Monocryl in a subcuticular fashion. This was reinforced with skin glue. A Mepilex silver dressing was applied along with a [id number] AUGUSTIN wrap. A CryoCuff was applied. Cornelius was transferred to the hospital bed without difficulty an suffering no apparent complication. Cornelius has a good prognosis. Physical therapy will start today and without restrictions, weight-bearing as tolerated. He will resume his home dose of Eliquis for DVT prophylaxis.
[2023-06-04 03:38] VITALS: BP 110/53; PULSE 43; RESP 16; TEMP 36.6; O2SAT 95
[2023-06-04] MEDS: Omeprazole 20 MG CAPCR 40 MG PO (07:03)
[2023-06-04] MEDS: Levothyroxine 25 MCG TAB 50 MCG PO (07:03)
[2023-06-04 07:29] VITALS: PULSE 46; RESP 18; TEMP 36.2; O2SAT 98
--- NOTE | 2023-06-04 08:02 | RESPIRATORY ---
Spoke with Patient about EUSEBIA diagnosis and patient has Inspire implant (unable to tolerate CPAP and has had multiple sleep studies). [facility] Insp[facility] [place] [facility] [place]
[2023-06-04] MEDS: ceFAZolin 1 GM/50 ML BAG IVPB (08:17)
[2023-06-04] MEDS: Oxybutynin-CR 5 MG TABCR 10 MG PO (08:18)
[2023-06-04] MEDS: Diclofenac 1% Gel 100 GM TUBE TP (08:18)
[2023-06-04] MEDS: Fluticasone NASAL SPRAY 16 GM BTL NS (08:18)
[2023-06-04] MEDS: Acetaminophen 500 MG TAB 1000 MG PO (08:19)
[2023-06-04] MEDS: Furosemide 40 MG TAB 80 MG PO (08:19)
[2023-06-04] MEDS: Finasteride 5 MG TAB PO (08:19)
[2023-06-04] MEDS: Loratidine 10 MG TAB PO (08:20)
[2023-06-04] MEDS: Tamsulosin 0.4 MG CAPCR 0.8 MG PO (08:20)
[2023-06-04] MEDS: Dexamethasone 4 MG TAB PO (08:20)
[2023-06-04] MEDS: Celecoxib 200 MG CAP PO (08:20)
[2023-06-04] MEDS: Montelukast 10 MG TAB PO (08:20)
[2023-06-04] MEDS: Apixaban 2.5 MG TAB PO (08:20)
[2023-06-04 08:25] VITALS: BP 100/60
--- NOTE | 2023-06-04 09:50 | W.PM.DS.N ---
Date of service: 06/04/23 Time of Service: 09:48 DS: Diagnosis Discharge Diagnosis (1) Osteoarthritis of left knee: Status: Chronic Discharge Plan Disposition Patient Disposition: Home Condition: Good Discharge Details Reason For Visit: Left knee DJD Admit Date/Time: 06/03/23 07:32 Admit Provider: Jose Goldberg Attending Provider: Jose Goldberg Primary Care Provider: Romana Cox Hospital Course Hospital Course: Patient was admitted to the medical/surgical floor following the procedure. The surgery was tolerated well without any notable medical, surgical, or anesthetic complications. Mobilization began postoperatively. He was voiding spontaneously. Vitals were stable. Physical therapy worked with the patient and was cleared for discharge home. No acute medical issues. Pain was controlled on oral regimen. Home Meds and New Rx's Prescriptions: New celecoxib [Celebrex] 200 mg capsule 200 mg PO BID PRNQty: 60 0RF Rx Instructions: Take one tablet twice daily for pain and inflammation acetaminophen 500 mg tablet 1,000 mg PO Q8H PRN Qty: 90 0RF Rx Instructions: Take two tablets up to every 8 hours as needed for pain dexamethasone 4 mg tablet 4 mg PO DAILY Qty: 1 0RF Rx Instructions: Take one tablet once daily for one day gabapentin 300 mg capsule 300 mg PO QHS Qty: 14 0RF Rx Instructions: Take one tablet at bedtime oxycodone 5 mg tablet 5 mg PO Q4H PRNQty: 18 0RF Rx Instructions: Take one tablet up to every 4 hours as needed for severe postoperative pain Continued eplerenone 25 mg tablet 25 mg PO DAILY Xiidra 5 % dropperette 1 drp ophthalmic (eye) BID Rx Instructions: administer approximately 12 hours apart diclofenac sodium [Arthritis Pain (diclofenac)] 1 % gel 2 g topical QID Rx Instructions: apply to single elbow, wrist or hand; for hand includes palm/fingers/back of hand loratadine 10 mg tablet 10 mg PO DAILY fluticasone propionate [Flonase Allergy Relief] 50 mcg/actuation spray,suspension 1 spray intranasal DAILY Rx Instructions: administer into each nostril epinephrine 0.3 mg/0.3 mL auto-injector 0.3 mg IM ONCE Rx Instructions: as a single dose; may repeat once bisoprolol fumarate 5 mg tablet 5 mg PO DAILY finasteride 5 mg tablet 5 mg PO DAILY magnesium oxide 140 mg capsule 140 mg PO DAILY omeprazole 20 mg capsule,delayed release(DR/EC) 40 mg PO DAILY modafinil 200 mg tablet 200 mg PO BID PRN furosemide 80 mg tablet 80 mg PO DAILY lidocaine 5 % adhesive patch,medicated 1 patch topical DAILY Rx Instructions: leave on most painful area for up to 12 hrs tamsulosin [Flomax] 0.4 MG capsule 0.8 mg PO DAILY montelukast 10 MG tablet 10 mg PO DAILY Eliquis 2.5 MG tablet 2.5 mg PO BID Hold Instructions: Resume on 08/08/22. albuterol sulfate [ProAir HFA] 200 PUFF HFA aerosol inhaler 2 puff Inhalation BID PRN (Reason: Wheezing) oxybutynin chloride 10 mg tablet extended release 24hr 1 tab PO 1XD levothyroxine 25 MCG tablet 50 mcg PO DAILY fluticasone propion-salmeterol [Advair Diskus] 100-50 mcg/dose blister with device 1 inh inhalation BID Discontinued acetaminophen [Tylenol] 325 MG tablet 325 - 650 mg PO PRN PRN (Reason: Pain Or Temperature) Discharge Instructions Additional Instructions: Total Knee Discharge Instructions Activity: The most important activity is to walk and to work on gentle motion (both flexion and extension). You should try to take short walks a few times a day. It is important that when resting you work on keeping the knee straight. Avoid putting a pillow behind the knee as this will encourage flexion. Work on range of motion exercises as provided by Physical Therapy. - Start outpatient physical therapy within 2 weeks. - You should wear the MENDEL hose on both legs for 2 weeks. You may remove these at night. You may also use any compression sock in place of the MENDEL hose. - Utilize [employer] to review exercises, see videos on exercises and obtain basic information pertaining to your surgery and your recovery. Dressing: Remove the Cb wrap by 2 days after your surgery and put on your home compression socks. Continue to wear your medical grade, prescription compression stocking on the right leg. Keep the surgical dressing (underneath the CB wrap) in place for at least one week. After the first week it may be removed and replaced with light gauze and tape or nothing. The wound and dressing may get wet after 3 days but avoid soaking the dressing or otherwise it will need to be changed. Many people prefer covering the dressing with cling wrap (saran wrap) to minimize it from getting soaked. If it gets wet, just pat dry. If it starts to peel off then it will need to be changed. If you feel you are able to place your home with thigh-high compression socks over the knee wound, you may do this but watch for bunching of the material in the back aspect of the knee. Medications: - You should take Tylenol and anti-inflammatory Celebrex as your primary pain control medications. If the Celebrex is too expensive or not covered, please call the office for another alternative (Advil/Ibuprofen or Naproxen/Aleve) - You have been prescribed a stronger pain medication Oxycodone for breakthrough pain, take as needed as prescribed. You may half this tablet if necessary. You did report that you had some tramadol from previous prescriptions which could be utilized if you feel the oxycodone is too strong. Please feel free to contact Dr. Goldberg and discussed this with him. - You take a stomach acid reduction agent Omeprazole at baseline - continue with this medication to help reduce stomach acid and reflux. - You have been prescribed Gabapentin to take at night for restlessness and nerve pain. - You will resume your anticoagulation, Eliquis 2.5 mg twice daily as you take at baseline. - You have also been prescribed Decadron to take to control post-operative nausea and pain. You will start this tomorrow. - If you have constipation you should take Colace or Miralax (both [id number]). It takes most people 3-4 days to have a bowel movement. Follow-up: 2 weeks If you have any acute concerns or questions, please do not hesitate to contact the office at [phone]. You may contact Dr. Goldberg with any questions after hours through the hospital at [phone] or on his cell phone at [phone]. Referrals: Jose Goldberg MD [ [facility]FF [facility]YSICIAN] - Activity:: Activity as Tolerated Equipment/Supplies:: Walker Diet:: As Tolerated Discharge Orders Discharge Orders: Discharge Order (Routine); Ordered 06/04/23 Ordered By: Jose Goldberg DS: Summary Time Spent with Patient providing and/or coordinating discharge services: Less than 30 minutes Status at Discharge Functional status at discharge: uses cane/walker Overall status at discharge: patient is progressing back to baseline Mental Status: mental status grossly normal Speech and Movement: speech and movement normal Mood: congruent mood Affect: normal affect Exam Narrative Exam Narrative: Evaluation of the left leg shows an intact dressing. He is able to straight leg raise. Ankle dorsiflexion, plantarflexion, EHL, FHL is intact. Sensation intact light touch over the deep and superficial peroneal nerve and tibial nerve. Psych Mental Status: mental status grossly normal Speech and Movement: speech and movement normal Mood: congruent mood Affect: normal affect DS: Data Vitals/I&O Vitals and I&O: Vital Signs Temperature 97.3 F L 06/03/23 09:59 Temperature Source Temporal Artery Scan 06/03/23 09:59 Pulse 51 L 06/03/23 09:59 Pulse Rhythm Regular 06/03/23 09:06 Respiratory Rate 16 06/03/23 09:59 Respiratory Depth Normal 06/03/23 09:06 Blood Pressure 157/71 H 06/03/23 09:59 Blood Pressure Mean 99 06/03/23 09:59 Pulse Oximetry 98 06/03/23 09:59 Oxygen Delivery Method Room Air 06/03/23 09:59 Oxygen Flow Rate 0 06/03/23 09:59 Pain Level 0 06/03/23 09:59 Intake & Output 06/02/23 06/02/23 06/03/23 11:59 23:59 11:59 Weight 167 lb 0.002 oz 167 lb 0.002 oz 167 lb 15.876 oz PFSH All Active Problems Myxomatous mitral valve (Acute) Cardiomyopathy (Acute) Intertrochanteric fracture of right hip (Acute 09/18/15) Asthma (Chronic) GERD (gastroesophageal reflux disease) (Chronic) H/O tobacco use, presenting hazards to health (Chronic) H/O deep venous thrombosis (Chronic) Multiple h/o tia (Chronic) Impacted esophageal foreign body (Acute) Traumatic arthropathy, left shoulder (Acute) depo medrol: 03/20/23; 12/19/22; 09/23/22; 06/21/22 Osteoarthritis of left knee (Chronic) DEPO MEDROL; 12/19/22; 06/20/22 Land's esophagus without dysplasia (Acute) Benign neoplasm of skin (Acute) Osteoarthritis (arthritis due to wear and tear of joints) (Chronic) Osteopenia (Acute) Dysphagia (Acute) Chronic GERD (Acute) Medical History EUSEBIA (obstructive sleep apnea) CPAP intolerant - inspire implants DOS: 10/24/2022 Hypothyroidism Liver fibrosis Right heart failure Spinal stenosis, lumbar region with neurogenic claudication Pityriasis lichenoides chronica Dermatitis Chronic gingivitis, plaque induced Cervicalgia Cerebrovascular disease 04/09/2005 Paresthesia of upper limb (07/12/13) Surgical History History of hand surgery Bilateral hand ligament repairs ~2015 and ~2017 History of nasal septoplasty (~2019) H/O umbilical hernia repair History of lung surgery VATS Hx of fracture of femur s/p right repair w/odessa placement Hx of total knee arthroplasty (09/03/98) History of shoulder surgery (2012) Right hemiarthroplasty Hx of tonsillectomy History of cervical spinal surgery History of back surgery L4-L5 Presence of automatic cardioverter/defibrillator (AICD) (12/17/17) s/p right coronary cusp PVD ablation AICD EGD - MAC (12/14/17) Social History Smoking/Tobacco Use Status: Former Tobacco Use Quit Date: 07/21/20 Smoking risk assessment performed?: Yes Alcohol Intake: former Drug use: Never Substance use type: does not use Housing: house Do you feel safe at home: Yes Do you feel safe in your relationship?: Yes Time Spent with Patient Time Spent with Patient: <45 minutes Time was spent: obtaining and/or reviewing separately otained hiistory, ordering medications,tests, procedures, counseling the patient and care coordination
--- NOTE | 2023-06-04 10:01 | PTTR_ITS ---
Date of service: 06/04/23 Time of Service: 09:30 PT Notes Visit Reasons: Left knee DJD Inpatient Physical Therapy Treatment Note [facility] Date: 06/04/23 PRECAUTIONS: Fall, standard, activity as tolerated. WBAT LLE with AD. SUBJECTIVE: Patient is dressed in his own clothing, reports feeling good. OBJECTIVE: Patient is exiting the bathroom as this clinician enters the room, using FWW, appears steady. also present. Agreeable to therapy. ? PAIN: No pain reported. Patient observes stiffness in left knee. VITALS: monitored by nursing staff. Therapeutic Activities ([id number]): Direct one-on-one instruction in dynamic activities to improve functional performance. ? BED MOBILITY/TRANSFERS? Rolling L/R: Independent Supine-sit: Independent with HOB elevated ~30 degrees. Patient does not have hospital bed at home, but does sleep on a wedge according to his which elevates his head about the same amount. ? Sit-supine: Independent with extra time. ? Sit-stand: SBA ? Stand-sit: SBA ? Bed-Chair: SBA ? Chair-bed: SBA ? Therapeutic Exercises (86761p7): Direct one-on-one instruction in therapeutic exercises to develop strength, endurance, range of motion and flexibility. ? Exercises: Reviewed HEP created by DPT Maria G Jimenez with patient and as follows: * ankle pumps x10 * seated marching x10 * heel slides x10 * SLR x10 * quad sets x10 with 5 second hold, 5 second rest. Verbal and tactile cues provided to activate the correct muscle. Patient struggles to hold contraction. Additional cues to get patient to hold contraction correctly. Ambulation ? Assistive Device: FWW? Weight bearing: WBAT with AD Assist: SBA ? Distance:? 250 feet ? Deviation: Patient demonstrates symmetric step pattern, adequate heel strike and toe off. Reports no pain. Stairs: Patient ascends and descends 2 six inch stairs and 3 four inch stairs with bilateral hand rails, step-to gait pattern, and SBA. Verbal cues for safe step pattern, limb placement. ? Provided skilled instruction in proper exercise performance Provided skilled manual cues to facilitate proper muscle recruitment and/or form. ASSESSMENT:? Patient tolerates therapy well, reports that he is determined to get better. PLAN: Continue global strengthening per plan of care until patient is medically cleared for discharge. Patient to follow up with outpatient PT according to instructions given by his orthopedic surgeon. TREATMENT CODE/TIME: 20 minutes beginning at 9:30
== END 2023-06-04 11:02 | disposition home or self-care (01) ==
LOC: SUR 10:07 → MS 13:58 → SUR 06-04 07:52 → MS 06-04 07:52
PROVIDERS: Admitting Provider Student in an Organized Health Care Education/Training Program; PCP Physician Assistant; Visit Provider Student in an Organized Health Care Education/Training Program
PROC: (CPT 27447; principal; 2023-06-03 11:30)
DX: M17.12 Unilateral primary osteoarthritis, left knee (principal); I34.1 Nonrheumatic mitral (valve) prolapse; I42.9 Cardiomyopathy, unspecified; J45.909 Unspecified asthma, uncomplicated; K21.9 Gastro-esophageal reflux disease without esophagitis; Z87.891 Personal history of nicotine dependence; Z86.73 Personal history of transient ischemic attack (TIA), and cerebral infarction without residual deficits; Z86.718 Personal history of other venous thrombosis and embolism; K22.70 Barrett's esophagus without dysplasia; M85.80 Other specified disorders of bone density and structure, unspecified site; Z79.01 Long term (current) use of anticoagulants; Z79.899 Other long term (current) drug therapy
CPT/HCPCS: 20985; 27447; 76942; 97110; 97162; 97530; G0378; J0690; J1100; J2250; J2371; J2405; J2704; J3010; J8540

== ENCOUNTER 2023-06-16 14:54 | Outpatient (CLI) | payer OTHER, SELFPAY ==
--- NOTE | 2023-06-16 14:00 | DI.RAD_ITS ---
Exam(s) XR KNEE LT 1V XR STANDING ALIGNMENT EXAM: XR STANDING ALIGNMENT and XR knee LT 1 V CLINICAL HISTORY: left TKA. TECHNIQUE: 2D digital imaging was performed. Five images were obtained. COMPARISON: CR XR KNEE LT 1V from 05/19/2023 CR XR STANDING ALIGNMENT from 05/19/2023 FINDINGS: BONES: There findings again seen of ORIF of an old healed proximal right femoral fracture. The patie nt has bilateral total knee replacements. There has been no change in appearance of the right total knee replacement. The left total knee replacement is in good position. No suspicious lucencies are seen in or about the orthopedic hardware. There are old healed distal left tibia and fibular fractur es.There is no significant leg length discrepancy. SOFT TISSUE: Vascular calcifications are present. IMPRESSION: Stable bilateral total knee replacements. DATA REPOSITORY: RADIATION DOSE DELIVERED:
== END 2023-06-16 14:55 | disposition home or self-care (01) ==
LOC: DIORS 14:54
PROVIDERS: PCP Physician Assistant; Visit Provider Student in an Organized Health Care Education/Training Program
DX: Z96.653 Presence of artificial knee joint, bilateral (principal); Z47.1 Aftercare following joint replacement surgery
CPT/HCPCS: 73560; 77073

== ENCOUNTER 2023-07-19 09:38 | Emergency (ER) | payer OTHER, SELFPAY ==
[2023-07-19 09:55] VITALS: BP 98/47; PULSE 70; RESP 18; TEMP 36.7; O2SAT 99
[2023-07-19 10:16] VITALS: BP 122/68; PULSE 66; RESP 16; TEMP 36.9; O2SAT 98
--- NOTE | 2023-07-19 10:45 | RT.EKG_ITS ---
APPROVED REPORT Exam: Resting ECG Reason for Exam: weakness Patient Location: E HR:64 bpm ECG Measurements Heart Rate [address] 283 P 55 QRSd 111 QRS -44 QT 449 T 61 QTc 463 Conclusion Sinus rhythm...normal P axis, V-rate 60- 99 Multiform ventricular premature complexes...short R-R, variable morphology Prolonged CT interval...CT >220, V-rate 50- 90 Left anterior fascicular block...axis(240,-40), init forces inf sinus rhythm, left axis, PVCs, non ischemic
--- NOTE | 2023-07-19 10:45 | DI.CT_ITS ---
Exam(s) CT ABDOMEN PELVIS W EXAM: CT ABDOMEN PELVIS W CLINICAL HISTORY: abd pain and diarrhea. TECHNIQUE: Imaging Protocol: Axial computed tomography images with coronal and sagittal reformatted images were created and reviewed CONTRAST MATERIAL: Intravenous: Omnipaque 350 Contrast volume:100 ml Oral: / no COMPARISON: No exams were available for comparison FINDINGS: ABDOMEN and PELVIS: Exam limited by motion artifact. Exam also somewhat limited by lack of intra-abdominal fat. Lung Bases: Small pericardial effusion. Cardiomegaly. Dependent atelectasis greater at the right jose ng base. Question of mild right basilar infiltrate.. Liver: Normal density. No measurable mass. Gallbladder and biliary tract: No gallbladder wall thickening or gallstones. Mild biliary dilatation . Pancreas: Not well seen. Atrophic. Spleen: Normal size. Kidneys: Normal size, contour and axis. No radiodense stones. No obstructive uropathy. Small, 15 mil limeter maximal dimension exophytic smoothly marginated enhancing mass at the posterior mid right kid monika. Adrenal glands: Thickening of the medial limb of the left adrenal gland. Small nodule on the lateral limb of the right adrenal gland. No suspicious features. Likely adenomas. Vasculature: Abdominal aorta non-dilated. Soft tissues: Right inguinal hernia containing fluid. The appendix extends into the right inguinal c anal. Pacemakers noted bilaterally over the chest wall. Bladder: No gross wall thickening. No calculi.No focal mass. Bowel: Sigmoid diverticulosis. Question of wall thickening of the ascending colon. Question of wall thickening of the rectum. This could indicate proctitis. Moderate stool. No obstruction. No bow el wall thickening. Appendix normal. Peritoneal cavity: No ascites. No focal collection or mesenteric inflammatory response. Bones: Degenerative changes. Hardware in lumbar spine creates artifact. Reproductive organs: Enlarged prostate impressing on the base of the bladder. Hardware in right prox imal femur. Lymph nodes: Unremarkable. IMPRESSION:: Limited exam due to patient motion and lack of intra-abdominal fat. Question of mild infiltrate at the right lung base versus atelectasis. Question of wall thickening of the ascending colon and rectum which could indicate inflammation. Div erticulosis without evidence of diverticulitis. No bowel obstruction. 15 millimeter enhancing exophytic mass on the right kidney. Recommend urology consult. Bilateral adrenal nodules, likely adenomas. Unexpected findings RADIATION DOSE DELIVERED: Total DLP DATA REPOSITORY: All CT scans at this facility are submitted to the National Radiology Data Registry (NRDR) Dose Index Registry (DIR) with the [employer] (A[employer]). RADIATION OPTIMIZATION: All CT scans at this facility use at least one of these dose optimization te chniques: automated exposure control; mA and/or kV adjustment per patient size (includes targeted exa ms where dose is matched to clinical indication); or iterative reconstruction.
[2023-07-19] MEDS: Lactated Ringers 1,000 ML 1000 ML IV (11:20)
--- NOTE | 2023-07-19 11:21 | ED.GENADUL_ITS ---
Discharge Plan Disposition Patient Disposition: Home Discharge Details Clinical Impression: Kidney mass, Diarrhea, Adrenal mass, Gallbladder anomaly, Nausea Primary Care Provider: Romana Cox ED Provider: Erica Bañuelos Home Meds and New Rx's Prescriptions: New doxycycline hyclate 100 mg capsule 300 mg PO ONCE Qty: 3 0RF prochlorperazine maleate [Compazine] 5 mg tablet 5 mg PO Q8H PRN5 Days Qty: 10 0RF Continued eplerenone 25 mg tablet 25 mg PO DAILY Xiidra 5 % dropperette 1 drp ophthalmic (eye) BID Rx Instructions: administer approximately 12 hours apart diclofenac sodium [Arthritis Pain (diclofenac)] 1 % gel 2 g topical QID Rx Instructions: apply to single elbow, wrist or hand; for hand includes palm/fingers/back of hand loratadine 10 mg tablet 10 mg PO DAILY fluticasone propionate [Flonase Allergy Relief] 50 mcg/actuation spray,suspension 1 spray intranasal DAILY Rx Instructions: administer into each nostril epinephrine 0.3 mg/0.3 mL auto-injector 0.3 mg IM ONCE Rx Instructions: as a single dose; may repeat once bisoprolol fumarate 5 mg tablet 5 mg PO DAILY finasteride 5 mg tablet 5 mg PO DAILY magnesium oxide 140 mg capsule 140 mg PO DAILY omeprazole 20 mg capsule,delayed release(DR/EC) 40 mg PO DAILY modafinil 200 mg tablet 200 mg PO BID PRN furosemide 80 mg tablet 80 mg PO DAILY lidocaine 5 % adhesive patch,medicated 1 patch topical DAILY Rx Instructions: leave on most painful area for up to 12 hrs tamsulosin [Flomax] 0.4 MG capsule 0.8 mg PO DAILY Patient Comments: has cut his dose down to 0.4mg qd montelukast 10 MG tablet 10 mg PO DAILY Eliquis 2.5 MG tablet 2.5 mg PO BID Hold Instructions: Resume on 08/08/22. albuterol sulfate [ProAir HFA] 200 PUFF HFA aerosol inhaler 2 puff Inhalation BID PRN (Reason: Wheezing) oxybutynin chloride 10 mg tablet extended release 24hr 1 tab PO 1XD levothyroxine 25 MCG tablet 50 mcg PO DAILY fluticasone propion-salmeterol [Advair Diskus] 100-50 mcg/dose blister with device 1 inh inhalation BID acetaminophen 500 mg tablet 1,000 mg PO Q8H PRN Qty: 90 0RF Rx Instructions: Take two tablets up to every 8 hours as needed for pain oxycodone 5 mg tablet 5 mg PO Q4H PRNQty: 18 0RF Rx Instructions: Take one tablet up to every 4 hours as needed for severe postoperative pain Discharge Instructions Instructions: Acute Nausea and Vomiting (ED), Acute Diarrhea (ED) Additional Instructions: Please follow-up with your doctor for outpatient ultrasound of your gallbladder this week Take Compazine as needed for nausea Make sure you are hydrating yourself at least eight 8 ounce glasses of water and Follow-up with your doctor regarding renal and adrenal masses for further evaluation and Take the antibiotic, one-time dose Recommend reassessment on Friday with your primary care physician Return earlier with new or worsening complaints Discharge Data Discharge Date/Time-TO BE ENTERED AT DEPARTURE: 07/19/23 13:38 Medical Decision Making 73-year-old male presenting with diarrhea for the past 4 days, starting after eating some raw clams approximately 24 hours, has had persisting diarrhea since that time, reports some cramping in his abdomen with nausea in the absence of vomiting Leukopenia with baseline anemia Very mild hypokalemia, will encourage multivitamin CT abdomen and pelvis is ordered secondary to age and comorbidities, adrenal mass, renal mass, distended gallbladder, no right upper quadrant tenderness appreciated, lipase within normal limits, has outpatient ultrasound scheduled, encouraged to follow-up earlier, recommended reassessment on Friday or Friday of next week Given antiemetics for home, also subsided with doxycycline 300 mg to treat suspected infectious colitis, as patient did have raw clams which may have precipitated his symptoms, he was unable to supply a stool sample throughout this encounter, given his history of cardiomyopathy I am hesitant to give the patient any additional fluid, he received 1.5 L here, he was able to ambulate without feeling weak or dizzy and feels like he is stable for discharge home He feels like he is able to tolerate p.o. He will need to follow-up with his primary care physician regarding his labs, and CT scan, copy of his CT scan once distributed for follow-up HPI General Date/Time Provider Initiated Documentation: 07/19/23 10:22 . HPI Narrative: This 73-year-old gentleman with history of colitis approximately 20 years ago presents with diarrhea which reportedly started a day after consuming raw clams. denies any blood in his stool. He has had intermittent nausea without vomiting. Has between 6-8 episodes of diarrhea daily, denies recent antibiotics. Has some cramping in his abdomen. Denies fever or chills. Denies known sick contacts. Describes stool as liquid. Denies history of C. difficile in the past. Related Data Home Medications Medication Instructions Recorded Confirmed montelukast 10 mg tablet 10 mg PO DAILY 01/25/13 07/19/23 tamsulosin 0.4 mg capsule (Flomax) 0.8 mg PO DAILY 01/25/13 07/19/23 apixaban 2.5 mg tablet (Eliquis) 2.5 mg PO BID 09/18/15 07/19/23 albuterol sulfate 90 mcg/actuation 2 puff inhalation BID PRN Wheezing 10/02/15 07/19/23 aerosol inhaler (ProAir HFA) levothyroxine 25 mcg tablet 50 mcg PO DAILY 12/14/17 07/19/23 oxybutynin chloride 10 mg 1 tab PO 1XD 04/07/22 07/19/23 tablet,extended release 24 hr diclofenac sodium 1 % topical gel 2 g topical QID 04/22/22 07/19/23 (Arthritis Pain (diclofenac)) fluticasone propionate 50 1 spray intranasal DAILY 04/22/22 07/19/23 mcg/actuation nasal spray,suspension (Flonase Allergy Relief) lifitegrast 5 % eye drops in a 1 drp ophthalmic (eye) BID 04/22/22 07/19/23 dropperette (Xiidra) loratadine 10 mg tablet 10 mg PO DAILY 04/22/22 07/19/23 finasteride 5 mg tablet 5 mg PO DAILY 06/11/22 07/19/23 magnesium oxide 140 mg capsule 140 mg PO DAILY 06/11/22 07/19/23 omeprazole 20 mg capsule,delayed 40 mg PO DAILY 06/11/22 07/19/23 release modafinil 200 mg tablet 200 mg PO BID PRN 06/20/22 07/19/23 furosemide 80 mg tablet 80 mg PO DAILY 07/08/22 07/19/23 lidocaine 5 % topical patch 1 patch topical DAILY 07/08/22 07/19/23 epinephrine 0.3 mg/0.3 mL 0.3 mg IM ONCE 07/23/22 07/19/23 injection, auto-injector bisoprolol fumarate 5 mg tablet 5 mg PO DAILY 03/20/23 07/19/23 eplerenone 25 mg tablet 25 mg PO DAILY 05/19/23 07/19/23 acetaminophen 500 mg tablet 1,000 mg (2 x 500 mg) PO Q8H PRN 06/03/23 07/19/23 pain #90 tabs fluticasone 100 mcg-salmeterol 50 1 inh inhalation BID 06/03/23 07/19/23 mcg/dose blistr powdr for inhalation (Advair Diskus) oxycodone 5 mg tablet 5 mg PO Q4H PRN #18 tabs 06/03/23 07/19/23 doxycycline hyclate 100 mg capsule 300 mg (3 x 100 mg) PO ONCE #3 caps 07/19/23 prochlorperazine maleate 5 mg 5 mg PO Q8H PRN 5 days #10 tabs 07/19/23 tablet (Compazine) Previous Rx's Medication Instructions Recorded acetaminophen 500 mg tablet 1,000 mg (2 x 500 mg) PO Q8H PRN 06/03/23 pain #90 tabs oxycodone 5 mg tablet 5 mg PO Q4H PRN #18 tabs 06/03/23 doxycycline hyclate 100 mg capsule 300 mg (3 x 100 mg) PO ONCE #3 caps 07/19/23 prochlorperazine maleate 5 mg 5 mg PO Q8H PRN 5 days #10 tabs 07/19/23 tablet (Compazine) Allergies Allergy/AdvReac Type Severity Reaction Status Date / Time peanut Allergy Severe Anaphylaxsi Verified 07/19/23 09:59 s peas Allergy Severe Anaphylaxsi Verified 07/19/23 09:59 s tree nut Allergy Severe Anaphylaxsi Verified 07/19/23 09:59 s amoxicillin Allergy Mild Skin Rash Verified 07/19/23 09:59 gabapentin AdvReac Intermediate Dizziness/L Unverified 07/19/23 09:59 ighthead lisinopril AdvReac cough Verified 07/19/23 09:59 sutures Allergy Unknown inflammed Uncoded 07/19/23 09:59 General Stated Complaint: Nausea/Vomit/Diar KANDI: 2 PFSH All Active Problems (Updated 07/19/23 @ 13:24 by SRIRAM Stanton) Nausea (Acute) Gallbladder anomaly (Acute) Adrenal mass (Acute) Diarrhea (Acute) Kidney mass (Acute) Greater trochanteric bursitis of both hips (Acute) History of total left knee replacement (Acute 06/03/23) Myxomatous mitral valve (Acute) Cardiomyopathy (Acute) Intertrochanteric fracture of right hip (Acute 09/18/15) Asthma (Chronic) GERD (gastroesophageal reflux disease) (Chronic) H/O tobacco use, presenting hazards to health (Chronic) H/O deep venous thrombosis (Chronic) Multiple h/o tia (Chronic) Impacted esophageal foreign body (Acute) Traumatic arthropathy, left shoulder (Acute) depo medrol: 03/20/23; 12/19/22; 09/23/22; 06/21/22 Land's esophagus without dysplasia (Acute) Benign neoplasm of skin (Acute) Osteoarthritis (arthritis due to wear and tear of joints) (Chronic) Osteopenia (Acute) Dysphagia (Acute) Chronic GERD (Acute) Medical History EUSEBIA (obstructive sleep apnea) CPAP intolerant - inspire implants DOS: 10/24/2022 Hypothyroidism Liver fibrosis Right heart failure Spinal stenosis, lumbar region with neurogenic claudication Pityriasis lichenoides chronica Dermatitis Chronic gingivitis, plaque induced Cervicalgia Cerebrovascular disease 04/09/2005 Paresthesia of upper limb (07/12/13) Surgical History History of hand surgery Bilateral hand ligament repairs ~2015 and ~2016 History of nasal septoplasty (~2019) H/O umbilical hernia repair History of lung surgery VATS Hx of fracture of femur s/p right repair w/odessa placement Hx of total knee arthroplasty (09/03/98) History of shoulder surgery (2012) Right hemiarthroplasty Hx of tonsillectomy History of cervical spinal surgery History of back surgery L4-L5 Presence of automatic cardioverter/defibrillator (AICD) (12/17/17) s/p right coronary cusp PVD ablation AICD EGD - MAC (12/14/17) Social History Smoking/Tobacco Use Status: Former Tobacco Use Quit Date: 07/21/20 Smoking risk assessment performed?: Yes Alcohol Intake: former Drug use: Never Substance use type: does not use Housing: house Do you feel safe at home: Yes Do you feel safe in your relationship?: Yes Course Vital Signs Vital signs: Vital Signs Temperature 36.7 C 07/19/23 09:55 Pulse 70 07/19/23 09:55 Respiratory Rate 18 07/19/23 09:55 Blood Pressure 98/47 L 07/19/23 09:55 Pulse Oximetry 99 07/19/23 09:55 Temperature 36.9 C 07/19/23 10:16 Temperature Source Oral 07/19/23 10:16 Pulse 66 07/19/23 10:16 Respiratory Rate 16 07/19/23 10:16 Blood Pressure 122/68 07/19/23 10:16 Blood Pressure Position Sitting 07/19/23 10:16 Pulse Oximetry 98 07/19/23 10:16 Oxygen Delivery Method Room Air 07/19/23 10:16 Pain Level 0 07/19/23 10:16
[2023-07-19 11:22] LABS: Bilirubin Negative (Negative); Blood Negative (Negative); Clarity Clear (Clear); Glucose Negative (Negative); Ketones Trace mg/dL (Negative); Leukocyte Esterase Negative (Negative); Nitrite Negative (Negative); Urobilinogen 0.2 mg/dL (Up to 0.2)
[2023-07-19 11:35] LABS: Bacteria Negative HPF (Negative); C & S Indicated? No; Casts Negative LPF (Negative); Crystals Many Calcium Oxalate HPF (Negative); Epithelial Cells Few HPF (Negative); Mucus Moderate (Negative); RBC 0-2 HPF (0-2)
[2023-07-19 11:37] LABS: Abs Immature Grans 0.01 10^3/uL (0.0-0.06); Absolute Basophil Count 0.03 10^3/uL (0.0-0.2); Absolute Eosinophil Count 0.07 10^3/uL (0.0-0.7); Absolute Lymphocyte Count 0.48 10^3/uL (1.2-3.4); Absolute Monocyte Count 0.48 10^3/uL (0.1-0.8); Absolute Neutrophil Count 1.19 10^3/uL (1.2-6.7); Basophils % 1.3; Eosinophils % 3.1; HCT 38.3 % (40.0-50.0); HGB 12.3 g/dL (13.5-17.5); Immature Grans % 0.4; Lymphocytes % 21.2; MCH 31.2 pg (27.0-33.0); MCHC 32.1 % (32.0-36.0); MCV 97 fL (80-95); MPV 10.1 fL (8.0-11.0); Monocytes % 21.2; Neutrophils % 52.8; Platelet Count 105 10^3/uL (130-400); RBC 3.94 10^6/uL (4.36-5.78); RDW 12.8 % (11.8-14.1); RDW-SD 45.8 fL; WBC 2.26 10^3/uL (4.4-10.8)
[2023-07-19 11:50] LABS: ALT 16 U/L (16-63); AST 19 U/L (15-37); Alkaline Phosphatase 91 U/L (46-116); Anion Gap 4.8 mmol/L (3-11); BUN 22 mg/dL (7-18); Bilirubin, Total 0.6 mg/dL (0.2-1.0); CO2 31.2 mmol/L (21.0-32.0); Calcium 8.5 mg/dL (8.5-10.1); Chloride 106 mmol/L (98-107); Estimated GFR 78.98 (mL/min/1.73m2); Glucose 93 mg/dL (74-106); Lipase 13 U/L (16-77); Magnesium 1.8 mg/dL (1.8-2.4); Potassium 3.4 mmol/L (3.5-5.1); Sodium 142 mmol/L (136-145); Total Protein 6.4 g/dL (6.4-8.2)
[2023-07-19] MEDS: Normal Saline Flush 10 ML SYR IVP (11:56)
[2023-07-19] MEDS: Normal Saline - Diluent 50 ML VIAL IJ (11:57)
[2023-07-19] MEDS: Omnipaque 350 MG/ML 100 ML BTL IJ (11:58)
--- NOTE | 2023-07-19 12:45 | DI.VRAD_ITS ---
PROCEDURE INFORMATION: Exam: CT Abdomen And Pelvis With Contrast Exam date and time: 07/19/2023 12:08 PM Age: 73 years old Clinical indication: Fever and other: Diarrhea TECHNIQUE: Imaging protocol: Computed tomography of the abdomen and pelvis with contrast. Radiation optimization: All CT scans at this facility use at least one of these dose optimization techniques: automated exposure control; mA and/or kV adjustment per patient size (includes targeted exams where dose is matched to clinical indication); or iterative reconstruction. Contrast material: OMNI 350; Contrast volume: 100 ml; Contrast route: INTRAVENOUS (IV); COMPARISON: CR XR LUMBAR SPINE FLEX/EXT ONLY 09/07/2021 11:18 AM FINDINGS: Limitations: None. Tubes, catheters and devices: Cardiac devices in the anterior chest jeffrey. Lungs: Dependent scarring/atelectatic or interstitial changes in the lung bases left greater than right. Heart: The heart is enlarged. Mediastinal space: Patulous distal esophagus. Liver: Mild intrahepatic ductal prominence without focal liver mass. Gallbladder and bile ducts: Mildly distended gallbladder without stones. Prominent common bile duct. Ultrasound follow-up might be helpful. Pancreas: Normal. No ductal dilation. Spleen: Spleen is enlarged. Adrenal glands: The right adrenal is within normal limits. Diffuse thickening of the left adrenal gland measuring 32 mm in confluence. It may be an adenoma dedicated CT or MRI recommended in follow-up. Kidneys and ureters: Enhancing renal mass on the right posteriorly at 15 mm and malignancy is not excluded. No definite stone or hydronephrosis. Stomach and bowel: Sigmoid diverticulosis and moderate retained stool without acute diverticulitis or bowel obstruction. Wall thickening versus nondistention of the ascending colon extending to the cecum could be infectious or inflammatory. Similar findings in the body of the stomach. Appendix: No evidence of appendicitis. Intraperitoneal space: No free air or significant free fluid. Vasculature: Atherosclerotic disease of the abdominal aorta extends into the mesenteric, renal, and iliac arteries without aneurysm or dissection. Atherosclerotic disease of the abdominal aorta extends into the mesenteric, renal, and iliac arteries without aneurysm or dissection. Lymph nodes: Unremarkable. No enlarged lymph nodes. Urinary bladder: Unremarkable as visualized. Reproductive: Prostatomegaly Bones/joints: Degenerative changes and postoperative changes in the spine no acute fracture. No lytic or blastic disease. Soft tissues: The inguinal rings are open with fat bilaterally. The appendix extends into the inguinal canal on the right proximally without obstruction. Fluid in the inguinal canal on the right is nonspecific. Other findings: Motion artifact. IMPRESSION: 1. Intrahepatic ductal prominence without focal mass in the liver. 2. Distended gallbladder and common bile duct dilatation. The consider ultrasound follow-up. 3. Atherosclerotic disease. 4. Open inguinal rings with large bowel in the appendix extending into the canal on the right but no bowel obstruction is seen. 5. Renal mass suspicious for malignancy on the right. Urology follow-up recommended. 6. Adrenal lesion possibly an adenoma on the left. Dedicated CT or MRI recommended in nonemergent follow-up. 7. Prostatomegaly. 8. Chronic appearing changes in the lung bases. 9. Question colitis of the right colon. 10. No free air or significant free fluid. 11. Postoperative changes. 12. Sigmoid diverticulosis. 13. Not discussed above is wall thickening and fatty stranding in the most distal left colon raising the question of proctitis. Dictated and Authenticated by: Onofre Palacios MD. Ordering:VARSHA Maldonado MD
[2023-07-19 13:34] VITALS: BP 136/70; PULSE 78; RESP 18; O2SAT 98
== END 2023-07-19 13:38 | disposition home or self-care (01) ==
PROVIDERS: Emergency Provider Physician Assistant; PCP Physician Assistant
DX: R19.7 Diarrhea, unspecified (principal); D72.819 Decreased white blood cell count, unspecified; E87.6 Hypokalemia; N28.89 Other specified disorders of kidney and ureter; E27.8 Other specified disorders of adrenal gland; K82.8 Other specified diseases of gallbladder; Z95.810 Presence of automatic (implantable) cardiac defibrillator; Z79.899 Other long term (current) drug therapy
CPT/HCPCS: 36415; 80053; 83690; 93005; 96360; 74177; 81003; 81015; 83735; 85025; 93010; 99284; 99285; J3490

== ENCOUNTER → 2023-07-22 00:55 | Outpatient (CLI) | payer OTHER, SELFPAY ==
--- NOTE | 2023-07-22 10:40 | DI.RAD_ITS ---
Exam(s) XR LEG LENGTH EXAM: XR LEG LENGTH CLINICAL HISTORY: LLD WITH H/O FX,NEW TKA,[id number]. TECHNIQUE: 2D digital imaging was performed. Four images were obtained. COMPARISON: CR XR STANDING ALIGNMENT from 05/19/2023 CR XR KNEE LT 1V from 05/19/2023 CR XR STANDING ALIGNMENT from 06/16/2023 CR XR KNEE LT 1V from 06/16/2023 FINDINGS: BONES: There is again seen an intramedullary odessa in the proximal right femur. There are bilateral to luke knee replacements which appears stable. Old healed fracture deformities are seen in the distal l eft tibia and fibula. The ankles are well maintained.The right lower extremity measures 99.1 cm. Th e left lower extremity measures 98.2 cm. SOFT TISSUE: Atherosclerosis. IMPRESSION: Stable bilateral total knee replacements. DATA REPOSITORY: RADIATION DOSE DELIVERED:
== END ==
PROVIDERS: PCP Physician Assistant
DX: Z47.1 Aftercare following joint replacement surgery (principal); Z96.653 Presence of artificial knee joint, bilateral
CPT/HCPCS: 77073

== ENCOUNTER 2024-01-26 15:10 | Outpatient (CLI) | payer OTHER, SELFPAY ==
--- NOTE | 2024-01-26 08:00 | DI.RAD_ITS ---
Exam(s) XR KNEE LT 3V AP,LAT,MARIPOSA EXAM: XR KNEE LT 3V AP,LAT,MARIPOSA CLINICAL HISTORY: new pain of L TKA. TECHNIQUE: 2D digital imaging was performed. Three images were obtained. Merchant's, AP and lateral views were obtained. COMPARISON: CR XR KNEE LT 1V from 06/16/2023 CR XR LEG LENGTH from 07/22/2023 FINDINGS: BONES: There are stable post operative changes of a left total knee replacement present. No fracture or dislocation. JOINTS: The orthopedic hardware is in good position. No evidence of hardware loosening. SOFT TISSUE: Vascular calcifications are present. IMPRESSION: Stable left total knee replacement. DATA REPOSITORY: RADIATION DOSE DELIVERED:
== END 2024-01-26 15:11 | disposition home or self-care (01) ==
LOC: DIORS 15:10
PROVIDERS: PCP Physician Assistant; Visit Provider Student in an Organized Health Care Education/Training Program
DX: M25.562 Pain in left knee (principal); T84.84XA Pain due to internal orthopedic prosthetic devices, implants and grafts, initial encounter; Z96.652 Presence of left artificial knee joint
CPT/HCPCS: 73562

== ENCOUNTER 2024-06-07 16:01 | Outpatient (CLI) | payer OTHER, SELFPAY ==
--- NOTE | 2024-06-07 11:00 | DI.RAD_ITS ---
Exam(s) XR KNEE LT 2V AP,LAT EXAM: XR KNEE LT 2V AP,LAT INDICATION: ANNUAL F/U L TKA. COMPARISON: CR XR KNEE LT 3V AP,LAT,MARIPOSA from 01/26/2024 TECHNIQUE: 2D digital imaging was performed. Two views. FINDINGS: Stable alignment total knee prosthesis. No abnormal bony lucencies. DATA REPOSITORY: RADIATION DOSE DELIVERED:
== END 2024-06-07 16:02 | disposition home or self-care (01) ==
LOC: DIORS 16:03
PROVIDERS: PCP Physician Assistant; Visit Provider Student in an Organized Health Care Education/Training Program
DX: T84.84XA Pain due to internal orthopedic prosthetic devices, implants and grafts, initial encounter (principal); Z96.652 Presence of left artificial knee joint
CPT/HCPCS: 73560

== ENCOUNTER 2024-07-19 20:45 | Outpatient (REF) | payer MEDICARE, OTHER, SELFPAY | END 2024-07-19 20:46 | disposition home or self-care (01) | LOC: LBN 20:45 | PROVIDERS: PCP Physician Assistant; Visit Provider Physician Assistant | DX: L98.9 Disorder of the skin and subcutaneous tissue, unspecified (principal) | CPT/HCPCS: 87070; 87205 ==

== ENCOUNTER 2025-02-08 12:42 | Emergency (ER) | payer MEDICARE, OTHER, SELFPAY ==
[2025-02-08] VITALS (16 sets, daily range): BP systolic 123–161; BP diastolic 47–95; PULSE 71–83; RESP 14–22; TEMP 36.7; O2SAT 93–98
--- NOTE | 2025-02-08 12:45 | RT.EKG_ITS ---
APPROVED REPORT Exam: Resting ECG Reason for Exam: Weakness, Nausea Patient Location: E HR:76 bpm ECG Measurements Heart Rate 76 AXIS UT 251 P 70 QRSd 112 QRS -54 QT 436 T 79 QTc 492 Conclusion Sinus rhythm 76 normal axis PVC 1st degree block
[2025-02-08 13:42] LABS: Abs Immature Grans 0.02 10^3/uL (0.0-0.06); HCT 42.5 % (40.0-50.0); HGB 14.0 g/dL (13.5-17.5); Immature Grans % 0.4 %; MCH 30.8 pg (27.0-33.0); MCHC 32.9 % (32.0-36.0); MCV 93 fL (80-95); MPV 10.0 fL (8.0-11.0); Platelet Count 120 10^3/uL (130-400); RBC 4.55 10^6/uL (4.36-5.78); RDW 12.5 % (11.8-14.1); RDW-SD 43.2 fL; WBC 5.41 10^3/uL (4.4-10.8)
[2025-02-08] MEDS: Normal Saline 1,000 ML 1000 ML IV (13:45)
[2025-02-08 13:56] LABS: ALT 27 U/L (16-63); AST 28 U/L (15-37); Albumin 4.2 g/dL (3.4-5.0); Alkaline Phosphatase 107 U/L (46-116); Anion Gap 9.7 mmol/L (3-11); BUN 15 mg/dL (7-18); Bilirubin, Total 1.4 mg/dL (0.2-1.0); CO2 28.3 mmol/L (21.0-32.0); Calcium 9.4 mg/dL (8.5-10.1); Chloride 95 mmol/L (98-107); Estimated GFR 95.49 (mL/min/1.73m2); Glucose 135 mg/dL (74-106); Lipase 18 U/L (<78); Magnesium 1.9 mg/dL (1.8-2.4); Potassium 3.8 mmol/L (3.5-5.1); Sodium 133 mmol/L (136-145); Total Protein 7.6 g/dL (6.4-8.2)
[2025-02-08] MEDS: Ondansetron 4 MG/2 ML VIAL IVP (14:12)
[2025-02-08] MEDS: Pantoprazole 40 MG VIAL IVP (14:13)
--- NOTE | 2025-02-08 14:29 | W.ED.GENAD ---
Discharge Plan Discharge Details Chief Complaint: Nausea/Vomit/Diar Clinical Impression: Nausea vomiting and diarrhea Primary Care Provider: Romana Cox ED Provider: Valerie Robles Home Meds and New Rx's Prescriptions: New ondansetron 4 mg tablet,disintegrating 4 mg PO Q6H PRN (Reason: nausea and vomiting) Qty: 30 0RF promethazine 25 mg suppository 25 mg UT Q6H PRN (Reason: nausea and vomiting) Qty: 12 0RF No Action eplerenone 25 mg tablet 50 mg PO DAILY Xiidra 5 % dropperette 1 drp ophthalmic (eye) BID Rx Instructions: administer approximately 12 hours apart diclofenac sodium [Arthritis Pain (diclofenac)] 1 % gel 2 g topical QID Rx Instructions: apply to single elbow, wrist or hand; for hand includes palm/fingers/back of hand loratadine 10 mg tablet 10 mg PO DAILY fluticasone propionate [Flonase Allergy Relief] 50 mcg/actuation spray,suspension 1 spray intranasal DAILY Rx Instructions: administer into each nostril epinephrine 0.3 mg/0.3 mL auto-injector 0.3 mg IM ONCE Rx Instructions: as a single dose; may repeat once bisoprolol fumarate 5 mg tablet 5 mg PO DAILY apixaban 5 mg tablet 5 mg PO BID trospium 20 mg tablet 20 mg PO BID Rx Instructions: administer on an empty stomach dofetilide 500 mcg capsule 500 mcg PO Q12H finasteride 5 mg tablet 5 mg PO DAILY magnesium oxide 140 mg capsule 140 mg PO DAILY omeprazole 20 mg capsule,delayed release(DR/EC) 40 mg PO DAILY modafinil 200 mg tablet 200 mg PO BID PRN lidocaine 5 % adhesive patch,medicated 1 patch topical DAILY Rx Instructions: leave on most painful area for up to 12 hrs furosemide 80 mg tablet 20 mg PO DAILY tamsulosin [Flomax] 0.4 MG capsule 0.8 mg PO DAILY Patient Comments: has cut his dose down to 0.4mg qd montelukast 10 MG tablet 10 mg PO DAILY albuterol sulfate [ProAir HFA] 200 PUFF HFA aerosol inhaler 2 puff Inhalation BID PRN (Reason: Wheezing) levothyroxine 25 MCG tablet 50 mcg PO DAILY fluticasone propion-salmeterol [Advair Diskus] 100-50 mcg/dose blister with device 1 inh inhalation BID acetaminophen 500 mg tablet 1,000 mg PO Q8H PRN Qty: 90 0RF Rx Instructions: Take two tablets up to every 8 hours as needed for pain oxycodone 5 mg tablet 5 mg PO Q4H PRNQty: 18 0RF Rx Instructions: Take one tablet up to every 4 hours as needed for severe postoperative pain HPI General Date/Time Provider Initiated Documentation: 02/08/25 13:27. Limitations to Documentation: no limitations. Information obtained by: patient and family. HPI Narrative: 75-year-old gentleman with past medical history of COPD, cardiomyopathy presents for evaluation of vomiting and diarrhea. He reports that last night he started to have abdominal pain. He reports a sensation of fullness and gas. He reports taking Gas-X without significant change. Did not have any vomiting or diarrhea at that time. This morning he reports several episodes of vomiting. He has not started having diarrhea, but did have a very large bowel movement just prior to arrival that was very soft. No fever or chills. reports that she ate the same dinner as him last night and feels fine. Denies any shortness of breath or chest pain. Related Data Home Medications ?Medication ?Instructions ?Recorded ?Confirmed montelukast 10 mg tablet 10 mg PO DAILY 01/25/13 07/19/24 tamsulosin 0.4 mg capsule (Flomax) 0.8 mg PO DAILY 01/25/13 07/19/24 albuterol sulfate 90 mcg/actuation 2 puff inhalation BID PRN Wheezing 10/02/15 07/19/24 aerosol inhaler (ProAir HFA) levothyroxine 25 mcg tablet 50 mcg PO DAILY 12/14/17 07/19/24 diclofenac sodium 1 % topical gel 2 g topical QID 04/22/22 07/19/24 (Arthritis Pain (diclofenac)) fluticasone propionate 50 1 spray intranasal DAILY 04/22/22 07/19/24 mcg/actuation nasal spray,suspension (Flonase Allergy Relief) lifitegrast 5 % eye drops in a 1 drp ophthalmic (eye) BID 04/22/22 07/19/24 dropperette (Xiidra) loratadine 10 mg tablet 10 mg PO DAILY 04/22/22 07/19/24 finasteride 5 mg tablet 5 mg PO DAILY 06/11/22 07/19/24 magnesium oxide 140 mg capsule 140 mg PO DAILY 06/11/22 07/19/24 omeprazole 20 mg capsule,delayed 40 mg PO DAILY 06/11/22 07/19/24 release modafinil 200 mg tablet 200 mg PO BID PRN 06/20/22 07/19/24 lidocaine 5 % topical patch 1 patch topical DAILY 07/08/22 07/19/24 epinephrine 0.3 mg/0.3 mL 0.3 mg IM ONCE 07/23/22 07/19/24 injection, auto-injector bisoprolol fumarate 5 mg tablet 5 mg PO DAILY 03/20/23 07/19/24 acetaminophen 500 mg tablet 1,000 mg (2 x 500 mg) PO Q8H PRN 06/03/23 07/19/24 pain #90 tabs fluticasone 100 mcg-salmeterol 50 1 inh inhalation BID 06/03/23 07/19/24 mcg/dose blistr powdr for inhalation (Advair Diskus) oxycodone 5 mg tablet 5 mg PO Q4H PRN #18 tabs 06/03/23 07/19/24 apixaban 5 mg tablet 5 mg PO BID 09/08/23 07/19/24 dofetilide 500 mcg capsule 500 mcg PO Q12H 12/01/23 07/19/24 eplerenone 25 mg tablet 50 mg PO DAILY 12/01/23 07/19/24 furosemide 80 mg tablet 20 mg PO DAILY 12/01/23 07/19/24 trospium 20 mg tablet 20 mg PO BID 12/01/23 07/19/24 ondansetron 4 mg disintegrating 4 mg PO Q6H PRN nausea and 02/08/25 tablet vomiting #30 tabs promethazine 25 mg rectal 25 mg UT Q6H PRN nausea and 02/08/25 suppository vomiting #12 ea Previous Rx's ?Medication ?Instructions ?Recorded acetaminophen 500 mg tablet 1,000 mg (2 x 500 mg) PO Q8H PRN 06/03/23 pain #90 tabs oxycodone 5 mg tablet 5 mg PO Q4H PRN #18 tabs 06/03/23 ondansetron 4 mg disintegrating 4 mg PO Q6H PRN nausea and 02/08/25 tablet vomiting #30 tabs promethazine 25 mg rectal 25 mg UT Q6H PRN nausea and 02/08/25 suppository vomiting #12 ea Allergies Allergy/AdvReac Type Severity Reaction Status Date / Time azithromycin Allergy Severe Cardiac Verified 07/19/24 17:42 Dysrhythmia peanut Allergy Severe Anaphylaxsi Verified 07/19/24 17:42 s peas Allergy Severe Anaphylaxsi Verified 07/19/24 17:42 s tree nut Allergy Severe Anaphylaxsi Verified 07/19/24 17:42 s amoxicillin Allergy Mild Skin Rash Verified 07/19/24 17:42 gabapentin AdvReac Intermediate Dizziness/L Verified 07/19/24 17:42 ighthead lisinopril AdvReac cough Verified 07/19/24 17:42 sutures Allergy Unknown inflammed Uncoded 07/19/24 17:42 General Stated Complaint: Nausea/Vomit/Diar KANDI: 3 Exam Narrative Exam Narrative: Review of Systems: All systems reviewed & are unremarkable except as noted in HPI and below Chronically ill-appearing NCAT PERRL, normal conjunctiva RRR, no murmur Unlabored respiratory effort, clear bilaterally Nondistended abdomen , soft nontender Extremities w/ trace edema Course Vital Signs Vital signs: Vital Signs Temperature 36.7 C 02/08/25 13:02 Pulse 71 02/08/25 13:02 Respiratory Rate 20 02/08/25 13:02 Blood Pressure 151/92 H 02/08/25 13:02 Pulse Oximetry 98 02/08/25 13:02 Temperature 36.7 C 02/08/25 13:07 Temperature Source Oral 02/08/25 13:07 Pulse 71 02/08/25 13:07 Respiratory Rate 20 02/08/25 13:07 Blood Pressure 151/92 H 02/08/25 13:07 Blood Pressure Position Sitting 02/08/25 13:07 Pulse Oximetry 98 02/08/25 13:07 Oxygen Delivery Method Room Air 02/08/25 13:07 Oxygen Flow Rate 0 02/08/25 13:07 Lab/Test Results Lab/Test Results: Laboratory Tests Range/Units 02/08/25 13:31 WBC (4.4-10.8) 10^3/uL 5.41 RBC (4.36-5.78) 10^6/uL 4.55 Hgb (13.5-17.5) g/dL 14.0 Hct (40.0-50.0) % 42.5 MCV (80-95) fL 93 MCH (27.0-33.0) pg 30.8 MCHC (32.0-36.0) % 32.9 RDW (11.8-14.1) % 12.5 Plt Count (130-400) 10^3/uL 120 L MPV (8.0-11.0) fL 10.0 Immature Gran % % 0.4 Neutrophils % % 81.7 Lymphocytes % % 11.3 Monocytes % % 5.5 Eosinophils % % 0.4 Basophils % % 0.7 Nucleated RBC % (0.0-0.3) % 0.0 Absolute Neutrophils (1.2-6.7) 10^3/uL 4.42 Absolute Lymphocytes (1.2-3.4) 10^3/uL 0.61 L Absolute Monocytes (0.1-0.8) 10^3/uL 0.30 Absolute Eosinophils (0.0-0.7) 10^3/uL 0.02 Absolute Basophils (0.0-0.2) 10^3/uL 0.04 Sodium (136-145) mmol/L 133 L Potassium (3.5-5.1) mmol/L 3.8 Chloride (98-107) mmol/L 95 L Carbon Dioxide (21.0-32.0) mmol/L 28.3 Anion Gap (3-11) mmol/L 9.7 BUN (7-18) mg/dL 15 Creatinine (0.70-1.30) mg/dL 0.7 Est GFR (CKD-EPI 2020) (mL/min/1.73m2) 95.49 Glucose (74-106) mg/dL 135 H Calcium (8.5-10.1) mg/dL 9.4 Magnesium (1.8-2.4) mg/dL 1.9 Total Bilirubin (0.2-1.0) mg/dL 1.4 H AST (15-37) U/L 28 ALT (16-63) U/L 27 Alkaline Phosphatase (46-116) U/L 107 Total Protein (6.4-8.2) g/dL 7.6 Albumin (3.4-5.0) g/dL 4.2 Lipase (<78) U/L 18 Medical Decision Making Emergent evaluation of vomiting. Has a benign abdominal exam, doubt acute intra-abdominal etiology such as appendicitis or cholecystitis. Patient has no fever or other sick symptoms. Low suspicion for cardiac etiology of the symptoms today though he does have a significant coronary history. Patient has had several episodes of vomiting and dry heaving and not been able to keep anything down. Will begin gentle fluid resuscitation monitor for any signs of volume overload or shortness of breath. Will give antiemetics, check blood work and reassess. Lab work reviewed there are no significant abnormalities. BNP is 3000, no priors for evaluation. Based on patient's report of his prior echo and EF of 55% suspect that he has preserved ejection fraction with his cardiomyopathy. No signs of volume overload. He has been resuscitated with IV fluids due to his poor oral intake and excessive vomiting today. After several rounds of antiemetics, patient still reports some nausea. Abdominal exam remains benign. At the time of signout, disposition is pending reevaluation after additional antiemetics and p.o. challenge. If patient does not tolerate p.o. challenge she will likely need to be admitted to the hospital. [facility] All Active Problems (Updated 02/08/25 @ 16:29 by Valerie Robles MD) Nausea vomiting and diarrhea (Acute) Muscle strain of left thigh (Acute) Painful total knee replacement, left (Acute) Greater trochanteric bursitis of both hips (Acute) L HIP: DEPO MEDROL 12/01/23 R HIP: DEPO MEDROL 12/01/23 History of total left knee replacement (Acute 06/03/23) Myxomatous mitral valve (Acute) Cardiomyopathy (Acute) Intertrochanteric fracture of right hip (Acute 09/18/15) Asthma (Chronic) GERD (gastroesophageal reflux disease) (Chronic) H/O tobacco use, presenting hazards to health (Chronic) H/O deep venous thrombosis (Chronic) Multiple h/o tia (Chronic) Impacted esophageal foreign body (Acute) Traumatic arthropathy, left shoulder (Acute) depo medrol: 03/20/23; 12/19/22; 09/23/22; 06/21/22 Land's esophagus without dysplasia (Acute) Benign neoplasm of skin (Acute) Osteoarthritis (arthritis due to wear and tear of joints) (Chronic) Osteopenia (Acute) Dysphagia (Acute) Chronic GERD (Acute) Medical History EUSEBIA (obstructive sleep apnea) CPAP intolerant - inspire implants DOS: 10/24/2022 Hypothyroidism Liver fibrosis Right heart failure Spinal stenosis, lumbar region with neurogenic claudication Pityriasis lichenoides chronica Dermatitis Chronic gingivitis, plaque induced Cervicalgia Cerebrovascular disease 04/09/2005 Paresthesia of upper limb (07/12/13) Surgical History History of hand surgery Bilateral hand ligament repairs ~2015 and ~2017 History of nasal septoplasty (~2019) H/O umbilical hernia repair History of lung surgery VATS Hx of fracture of femur s/p right repair w/odessa placement Hx of total knee arthroplasty (09/03/98) History of shoulder surgery (2012) Right hemiarthroplasty Hx of tonsillectomy History of cervical spinal surgery History of back surgery L4-L5 Presence of automatic cardioverter/defibrillator (AICD) (12/17/17) s/p right coronary cusp PVD ablation AICD EGD - MAC (12/14/17) Social History Smoking/Tobacco Use Status: Former Tobacco Use Quit Date: 07/21/20 Smoking risk assessment performed?: Yes Alcohol Intake: former Drug use: Never Substance use type: does not use Housing: house Do you feel safe at home: Yes Do you feel safe in your relationship?: Yes
[2025-02-08 14:39] LABS: NT-proBNP 3013 pg/mL (<300); Troponin I 14 ng/L (<or=76)
[2025-02-08 15:27] LABS: Troponin I 13 ng/L (<or=76)
[2025-02-08] MEDS: Metoclopramide 10 MG/2 ML VIAL IVP (16:29)
[2025-02-08] MEDS: Famotidine 20 MG/2 ML VIAL IVP (16:29)
--- NOTE | 2025-02-08 17:31 | W.EDPROG ---
Date of service: 02/08/25 Time of Service: 16:30 Medical Decision Making This patient was signed out to me. Please see previous notes for H&P and initial eval. In brief, 75yo M presenting with N/V/D. Reassuring ED workup. Signed out pending PO challenge; if able to tolerate PO plan to discharge home. Prescriptions sent. PO challenged and tolerated well. On reassessment his abdomen is nontender and his VS are reassuring. Discharged home to followup with PCP. Discharge instructions and return precuations were reviewed with patient who verbalized understanding. All questions were answered and he is in full agreement with the plan. Lab Data Lab results reviewed: Yes I reviewed the patient's lab results. Labs: Laboratory Tests Range/Units 02/08/25 02/08/25 02/08/25 13:31 14:47 16:50 WBC (4.4-10.8) 10^3/uL 5.41 RBC (4.36-5.78) 10^6/uL 4.55 Hgb (13.5-17.5) g/dL 14.0 Hct (40.0-50.0) % 42.5 MCV (80-95) fL 93 MCH (27.0-33.0) pg 30.8 MCHC (32.0-36.0) % 32.9 RDW (11.8-14.1) % 12.5 Plt Count (130-400) 10^3/uL 120 L MPV (8.0-11.0) fL 10.0 Immature Gran % % 0.4 Neutrophils % % 81.7 Lymphocytes % % 11.3 Monocytes % % 5.5 Eosinophils % % 0.4 Basophils % % 0.7 Nucleated RBC % (0.0-0.3) % 0.0 Absolute Neutrophils (1.2-6.7) 10^3/uL 4.42 Absolute Lymphocytes (1.2-3.4) 10^3/uL 0.61 L Absolute Monocytes (0.1-0.8) 10^3/uL 0.30 Absolute Eosinophils (0.0-0.7) 10^3/uL 0.02 Absolute Basophils (0.0-0.2) 10^3/uL 0.04 Sodium (136-145) mmol/L 133 L Potassium (3.5-5.1) mmol/L 3.8 Chloride (98-107) mmol/L 95 L Carbon Dioxide (21.0-32.0) mmol/L 28.3 Anion Gap (3-11) mmol/L 9.7 BUN (7-18) mg/dL 15 Creatinine (0.70-1.30) mg/dL 0.7 Est GFR (CKD-EPI 2020) (mL/min/1.73m2) 95.49 Glucose (74-106) mg/dL 135 H Calcium (8.5-10.1) mg/dL 9.4 Magnesium (1.8-2.4) mg/dL 1.9 Total Bilirubin (0.2-1.0) mg/dL 1.4 H AST (15-37) U/L 28 ALT (16-63) U/L 27 Alkaline Phosphatase (46-116) U/L 107 Troponin I (<or=76) ng/L 14 13 Cancelled NT-Pro-B Natriuret Pep (<300) pg/mL 3013 H Total Protein (6.4-8.2) g/dL 7.6 Albumin (3.4-5.0) g/dL 4.2 Lipase (<78) U/L 18 Discharge Plan Disposition Patient Disposition: Home Condition: Good Discharge Details Clinical Impression: Nausea vomiting and diarrhea Primary Care Provider: Romana Cox ED Provider: Paty Piper Home Meds and New Rx's Prescriptions: New ondansetron 4 mg tablet,disintegrating 4 mg PO Q6H PRN (Reason: nausea and vomiting) Qty: 30 0RF promethazine 25 mg suppository 25 mg IN Q6H PRN (Reason: nausea and vomiting) Qty: 12 0RF No Action eplerenone 25 mg tablet 50 mg PO DAILY Xiidra 5 % dropperette 1 drp ophthalmic (eye) BID Rx Instructions: administer approximately 12 hours apart diclofenac sodium [Arthritis Pain (diclofenac)] 1 % gel 2 g topical QID Rx Instructions: apply to single elbow, wrist or hand; for hand includes palm/fingers/back of hand loratadine 10 mg tablet 10 mg PO DAILY fluticasone propionate [Flonase Allergy Relief] 50 mcg/actuation spray,suspension 1 spray intranasal DAILY Rx Instructions: administer into each nostril epinephrine 0.3 mg/0.3 mL auto-injector 0.3 mg IM ONCE Rx Instructions: as a single dose; may repeat once bisoprolol fumarate 5 mg tablet 5 mg PO DAILY apixaban 5 mg tablet 5 mg PO BID trospium 20 mg tablet 20 mg PO BID Rx Instructions: administer on an empty stomach dofetilide 500 mcg capsule 500 mcg PO Q12H finasteride 5 mg tablet 5 mg PO DAILY magnesium oxide 140 mg capsule 140 mg PO DAILY omeprazole 20 mg capsule,delayed release(DR/EC) 40 mg PO DAILY modafinil 200 mg tablet 200 mg PO BID PRN lidocaine 5 % adhesive patch,medicated 1 patch topical DAILY Rx Instructions: leave on most painful area for up to 12 hrs furosemide 80 mg tablet 20 mg PO DAILY tamsulosin [Flomax] 0.4 MG capsule 0.8 mg PO DAILY Patient Comments: has cut his dose down to 0.4mg qd montelukast 10 MG tablet 10 mg PO DAILY albuterol sulfate [ProAir HFA] 200 PUFF HFA aerosol inhaler 2 puff Inhalation BID PRN (Reason: Wheezing) levothyroxine 25 MCG tablet 50 mcg PO DAILY fluticasone propion-salmeterol [Advair Diskus] 100-50 mcg/dose blister with device 1 inh inhalation BID acetaminophen 500 mg tablet 1,000 mg PO Q8H PRN Qty: 90 0RF Rx Instructions: Take two tablets up to every 8 hours as needed for pain oxycodone 5 mg tablet 5 mg PO Q4H PRNQty: 18 0RF Rx Instructions: Take one tablet up to every 4 hours as needed for severe postoperative pain Discharge Instructions Additional Instructions: Ondansetron up to every 6 hours for nausea. If that does not work, can use the suppository every 6 hours. Call your primary care doctor in the morning to schedule an appointment for within 48 hours to followup on your visit here. At that visit discuss your vomiting, your low platelets, and your slightly low sodium. Return to the emergency department for new or worsening symptoms including fever, abdominal pain, inability to keep down fluids, or if you have any other concerns.
--- NOTE | 2025-02-08 18:36 | NUR.NOTE ---
Nursing Note: pt able to keep fluids and crakers down with min nausea
[2025-02-08] MEDS: Ondansetron O.D.T. 4 MG TABEF, 3 TABS/BTL PO (19:09)
== END 2025-02-08 19:05 | disposition home or self-care (01) ==
PROVIDERS: Emergency Medicine; Emergency Provider Student in an Organized Health Care Education/Training Program; PCP Physician Assistant
DX: R11.2 Nausea with vomiting, unspecified (principal); R19.7 Diarrhea, unspecified; I10 Essential (primary) hypertension; Z86.79 Personal history of other diseases of the circulatory system
CPT/HCPCS: 99284 ×2; 96374; 96375; 36415; 00123; 80053; 83690; 93005; 83735; 83880; 84484; 85025; 93010; J2405; J2470; J2765

== ENCOUNTER 2025-02-09 08:41 | Inpatient (IN) | payer OTHER, SELFPAY ==
[2025-02-09] VITALS (41 sets, daily range): BP systolic 125–150; BP diastolic 63–93; PULSE 64–94; RESP 13–22; TEMP 36.5–37.3; O2SAT 92–97
--- NOTE | 2025-02-09 08:45 | DI.CT_ITS ---
Exam(s) CT ABDOMEN PELVIS W EXAM: CT ABDOMEN PELVIS W CLINICAL HISTORY: Abdominal pain, NV TECHNIQUE: Imaging Protocol: Axial computed tomography images with coronal and sagittal reformatted images were created and reviewed. CONTRAST MATERIAL: Intravenous: Omnipaque 350 Contrast volume:75 mL Oral: No COMPARISON: CT CT ABDOMEN PELVIS W from 07/19/2023 FINDINGS: ABDOMEN: Lung Bases: There is a small right pleural effusion. There is also small left pleural effusion. Cardiomegaly. There is a large hiatal hernia. There is dependent atelectasis present. Liver: Normal density. No measurable mass. Portal, Superior Mesenteric, and Splenic Veins: Unremarkable. Gallbladder and Biliary Tract: There is high-density material layering in the gallbladder which may represent small stones. No significant biliary ductal dilatation is present. Pancreas: There is atrophy of the pancreas. No peripancreatic masses or fluid collections are present. Spleen: Normal. Adrenals: There are bilateral stable adrenal nodules likely reflecting adenomas. Kidneys: Normal size, contour and axis. No radiodense stones or obstructive uropathy. Stable exophytic enhancing mass of the posterior aspect of the midpole of the right kidney. There are few tiny hypodensities in the left kidney. They are too small for further characterization but likely reflect small cysts. No follow-up is recommended. Abdominal Aorta: Abdominal portion non-dilated. Atherosclerotic calcification is present. Bowel: There is diverticulosis seen in the colon but no evidence of acute diverticulitis. There is a small midline infraumbilical anterior abdominal wall hernia containing a knuckle of small bowel. No evidence of obstruction or incarceration is seen. There is a right inguinal hernia containing a loop of small bowel. There is no evidence of obstruction or incarceration at this time. The bowel shows no evidence of wall thickening. There is no evidence of pneumatosis. The stomach is incompletely distended limiting evaluation. Appendix is unremarkable. Peritoneal Cavity: There is a trace amount of free fluid in the right pericolic gutter. No free air. Lymph Nodes: Within normal limits. Bones: Within normal limits for the patient's age. There are postsurgical changes again seen with an intervertebral disc cage at L4-L5 and posterior spinal rods spanning L4-L5. There is also again seen an intramedullary odessa in the right femur. There is stable retrolisthesis of L1 on L2 and L2 on L3. Soft Tissues: There is a fat containing left inguinal hernia. PELVIS: Bladder: There is mild diffuse thickening of the wall of the urinary bladder. This may be due to decreased distension, but cystitis or chronic bladder outlet obstruction cannot be excluded. Reproductive Organs: The prostate gland appears mildly enlarged impinging upon the base of the urinary bladder. Lymph Nodes: Within normal limits. Bones: Within normal limits for the patient's age. IMPRESSION: 1. No acute abdominal or pelvic process. 2. Small bowel containing right inguinal hernia without evidence of obstruction or incarceration. 3. Small bilateral pleural effusions. 4. Trace amount of abdominal ascites. 5. Mild diffuse thickening of the wall of the urinary bladder. This may be due to cystitis or chronic bladder outlet obstruction. Please correlate clinically. 6. Stable right renal exophytic solid mass. Outpatient MRI of the kidney without and with contrast should be considered for further characterization. 7. Additional incidental finding seen in the abdomen and pelvis as described above. RADIATION DOSE DELIVERED: 434.37mGy.cm Total DLP DATA REPOSITORY: All CT scans at this facility are submitted to the National Radiology Data Registry (NRDR) Dose Index Registry (DIR) with the [employer] ([employer]). RADIATION OPTIMIZATION: All CT scans at this facility use at least one of these dose optimization techniques: automated exposure control; mA and/or kV adjustment per patient size (includes targeted exams where dose is matched to clinical indication); or iterative reconstruction.
--- NOTE | 2025-02-09 09:00 | W.ED.GENAD ---
Discharge Plan Disposition Patient Disposition: Admit to [facility] Condition: Stable Discharge Details Clinical Impression: Intractable cyclical vomiting, Gastroenteritis, Bilateral pleural effusion Admit Date/Time: 02/09/25 12:34 Admit Provider: Ralf Cannon Attending Provider: Ralf Cannon Primary Care Provider: Romana Cox ED Provider: Ángela Pollack Discharge Data Discharge Date/Time-TO BE ENTERED AT DEPARTURE: 02/09/25 14:22 HPI General Mode of arrival: wheelchair. Date/Time Provider Initiated Documentation: 02/09/25 08:42. Limitations to Documentation: no limitations. Information obtained by: patient, family (Significant other), RN notes reviewed and old records reviewed. HPI Narrative: 75-year-old male presents to the ER for the second time in 48 hours for chief complaint of nausea vomiting, abdominal pain. Patient was discharged from the department last p.m. with Zofran and Phenergan. He reports that he has had poor appetite took a Zofran around 630 this morning but the pain has gotten worse. Upon examination he does have point tenderness in his left lower quadrant. Does have a history of a ventral hernia repair, does have noted a right inguinal hernia. Denies any chest pain shortness of breath denies any radiation of the pain into his back, denies any fever or chills had a large bowel movement yesterday which was soft denies any mucus or blood in his stool, he is alert and oriented x 4. Past medical history includes obstructive sleep apnea, hypothyroidism, liver fibrosis, right-sided heart failure, cerebrovascular disease, automatic cardioverter defibrillator implant, cervical spinal surgery and hernia repair approximately 20 years ago. Related Data Home Medications ?Medication ?Instructions ?Recorded ?Confirmed montelukast 10 mg tablet 10 mg PO DAILY 01/25/13 02/09/25 albuterol sulfate 90 mcg/actuation 2 puff inhalation BID PRN Wheezing 10/02/15 02/09/25 aerosol inhaler (ProAir HFA) levothyroxine 25 mcg tablet 75 mcg PO DAILY 12/14/17 02/09/25 diclofenac sodium 1 % topical gel 2 g topical QID 04/22/22 02/09/25 (Arthritis Pain (diclofenac)) fluticasone propionate 50 1 spray intranasal DAILY 04/22/22 02/09/25 mcg/actuation nasal spray,suspension (Flonase Allergy Relief) lifitegrast 5 % eye drops in a 1 drp ophthalmic (eye) BID 04/22/22 02/09/25 dropperette (Xiidra) loratadine 10 mg tablet 10 mg PO DAILY 04/22/22 02/09/25 finasteride 5 mg tablet 5 mg PO DAILY 06/11/22 02/09/25 magnesium oxide 140 mg capsule 140 mg PO DAILY 06/11/22 02/09/25 omeprazole 20 mg capsule,delayed 40 mg PO DAILY 06/11/22 02/09/25 release modafinil 200 mg tablet 200 mg PO BID PRN 06/20/22 02/09/25 lidocaine 5 % topical patch 1 patch topical DAILY 07/08/22 02/09/25 epinephrine 0.3 mg/0.3 mL 0.3 mg IM ONCE 07/23/22 02/09/25 injection, auto-injector bisoprolol fumarate 5 mg tablet 5 mg PO DAILY 03/20/23 02/09/25 acetaminophen 500 mg tablet 1,000 mg (2 x 500 mg) PO Q8H PRN 06/03/23 02/09/25 pain #90 tabs fluticasone 100 mcg-salmeterol 50 1 inh inhalation BID 06/03/23 02/09/25 mcg/dose blistr powdr for inhalation (Advair Diskus) apixaban 5 mg tablet 5 mg PO BID 09/08/23 02/09/25 dofetilide 500 mcg capsule 500 mcg PO Q12H 12/01/23 02/09/25 eplerenone 25 mg tablet 50 mg PO DAILY 12/01/23 02/09/25 furosemide 80 mg tablet 40 mg PO DAILY 12/01/23 02/09/25 trospium 20 mg tablet 20 mg PO BID 12/01/23 02/09/25 ondansetron 4 mg disintegrating 4 mg PO Q6H PRN nausea and 02/08/25 02/09/25 tablet vomiting #30 tabs promethazine 25 mg rectal 25 mg NH Q6H PRN nausea and 02/08/25 02/09/25 suppository vomiting #12 ea silodosin 8 mg capsule (Rapaflo) 8 mg PO DAILY 02/08/25 02/09/25 Previous Rx's ?Medication ?Instructions ?Recorded acetaminophen 500 mg tablet 1,000 mg (2 x 500 mg) PO Q8H PRN 06/03/23 pain #90 tabs ondansetron 4 mg disintegrating 4 mg PO Q6H PRN nausea and 02/08/25 tablet vomiting #30 tabs promethazine 25 mg rectal 25 mg NH Q6H PRN nausea and 02/08/25 suppository vomiting #12 ea Allergies Allergy/AdvReac Type Severity Reaction Status Date / Time azithromycin Allergy Severe Cardiac Verified 07/19/24 17:42 Dysrhythmia peanut Allergy Severe Anaphylaxsi Verified 07/19/24 17:42 s peas Allergy Severe Anaphylaxsi Verified 07/19/24 17:42 s tree nut Allergy Severe Anaphylaxsi Verified 07/19/24 17:42 s amoxicillin Allergy Mild Skin Rash Verified 07/19/24 17:42 gabapentin AdvReac Intermediate Dizziness/L Verified 07/19/24 17:42 ighthead lisinopril AdvReac cough Verified 07/19/24 17:42 sutures Allergy Unknown inflammed Uncoded 07/19/24 17:42 General Stated Complaint: Nausea/Vomit/Diar KANDI: 3 Review of Systems All systems reviewed & are unremarkable except as noted in HPI and below Exam Narrative Exam Narrative: Constitutional: Alert and oriented x3. Appears stated age. Thin body habitus. Pleasant and conversant. Head: Normocephalic, no trauma. Eyes: Pupils PERRL, Red reflex noted, EOM's intact. Eyelids symmetrical without lesions, discharge, or swelling. Chest: RRR, Normal S1, S2, distal pulses intact. Resp: Lungs clear to auscultation bilaterally, no wheezes, rales, or rhonchi. Abdomen: Soft, non-distended, Normoactive bowel sounds all 4 quads. Pinpoint tenderness to the left lower quadrant with palpation. Does have a right soft palpable mass which is read reducible with gravity. Patient has known right inguinal hernia and a previous ventral hernia with repair. Musculoskeletal: Unable to assess gait moves all 4 extremities without difficulty. Skin: No suspicious rashes or lesions. Capillary refill less than 2 sec. Neurologic: Cranial nerves II-XII intact. Alert and oriented x 3. Motor: No deficits noted. Course Vital Signs Vital signs: Vital Signs Temperature 36.9 C 02/09/25 08:44 Pulse 70 02/09/25 08:44 Respiratory Rate 18 02/09/25 08:44 Blood Pressure 150/93 H 02/09/25 08:44 Pulse Oximetry 97 02/09/25 08:44 Temperature 36.9 C 02/09/25 08:44 Temperature Source Oral 02/09/25 08:44 Pulse 70 02/09/25 08:44 Respiratory Rate 18 02/09/25 08:44 Blood Pressure 150/93 H 02/09/25 08:44 Pulse Oximetry 97 02/09/25 08:44 Oxygen Delivery Method Room Air 02/09/25 08:44 Oxygen Flow Rate 0 02/09/25 08:44 Pain Level 8 02/09/25 08:44 Medical Decision Making 75-year-old male presents to the ER for the second time in 48 hours for chief complaint of nausea vomiting, abdominal pain. Patient was discharged from the department last p.m. with Zofran and Phenergan. He reports that he has had poor appetite took a Zofran around 630 this morning but the pain has gotten worse. Upon examination he does have point tenderness in his left lower quadrant. Does have a history of a ventral hernia repair, does have noted a right inguinal hernia. Denies any chest pain shortness of breath denies any radiation of the pain into his back, denies any fever or chills had a large bowel movement yesterday which was soft denies any mucus or blood in his stool, he is alert and oriented x 4. Past medical history includes obstructive sleep apnea, hypothyroidism, liver fibrosis, right-sided heart failure, cerebrovascular disease, automatic cardioverter defibrillator implant, cervical spinal surgery and hernia repair approximately 20 years ago. I did review his labs from yesterday, repeat CBC and BMP and lactate, UA ordered, CT abdomen pelvis with IV contrast ordered. Differential diagnosis includes but not limited to gastroenteritis, bacterial gastroenteritis, diverticulitis, small bowel obstruction CT shows no acute abdominal or pelvic process however , does show small pleural effusions bilaterally, and there is small bowel containing right inguinal hernia without evidence of obstruction or incarceration, there is a small midline infraumbilical anterior abdominal wall hernia containing a knuckle of bowel, with some bowel inflammation and small amount of free fluid in the right pericolic gutter. No free air. Please see official report results below. 1106: Surgery on-call MD Dr. Gordillo paged. 1121: Spoke with Dr. Gordillo with surgery who reccomends possible obs for intractable nausea vomiting, appears to be more of a viral or bacterial gastroenteritis. There is no urgent need for acute surgical management at this time. She would love to see the patient in clinic for follow-up. Will discuss with hospitalist regarding possible obs versus admission. After discussion with patient and significant other regarding discharge versus admission for observation he is unable to hold down his normal daily medications at this time and has intractable nausea vomiting. I do recommend admission for observation until p.o. can be tolerated. Will contact Dr. Cannon with hospitalist team regarding patient case in details. 1222: Contact made with Dr. Cannon for admission for Gastroenteritis, intractable vomiting, he agrees to accept patient for admission. 1224: Dr. Gordillo here at patient bedside for evaluation. Discussed plan of care and treatment options with patient and family, shared decision making performed, they do feel comfortable and agree with being admitted into the hospital. Patient admitted for recurrent and intractable nausea vomiting despite attempted patient treatment. Patient remained hemodynamically stable alert and oriented throughout the remainder stay in the emergency department. This text was generated using Digital Perceptionation system, please disregard any oddities of phrase or misspellings. Medical Records Medical records reviewed: Yes I reviewed the patient's medical records. Imaging Data Radiologic Study: Imaging: CT Scan Radiologist's impression: EXAM: CT ABDOMEN PELVIS W CLINICAL HISTORY: Abdominal pain, NV TECHNIQUE: Imaging Protocol: Axial computed tomography images with coronal and sagittal reformatted images were created and reviewed. CONTRAST MATERIAL: Intravenous: Omnipaque 350 Contrast volume:75 mL Oral: No COMPARISON: CT CT ABDOMEN PELVIS W from 07/19/2023 FINDINGS: ABDOMEN: Lung Bases: There is a small right pleural effusion. There is also small left pleural effusion. Cardiomegaly. There is a large hiatal hernia. There is dependent atelectasis present. Liver: Normal density. No measurable mass. Portal, Superior Mesenteric, and Splenic Veins: Unremarkable. Gallbladder and Biliary Tract: There is high-density material layering in the gallbladder which may represent small stones. No significant biliary ductal dilatation is present. Pancreas: There is atrophy of the pancreas. No peripancreatic masses or fluid collections are present. Spleen: Normal. Adrenals: There are bilateral stable adrenal nodules likely reflecting adenomas. Kidneys: Normal size, contour and axis. No radiodense stones or obstructive uropathy. Stable exophytic enhancing mass of the posterior aspect of the midpole of the right kidney. There are few tiny hypodensities in the left kidney. They are too small for further characterization but likely reflect small cysts. No follow-up is recommended. Abdominal Aorta: Abdominal portion non-dilated. Atherosclerotic calcification is present. Bowel: There is diverticulosis seen in the colon but no evidence of acute diverticulitis. There is a small midline infraumbilical anterior abdominal wall hernia containing a knuckle of small bowel. No evidence of obstruction or incarceration is seen. There is a right inguinal hernia containing a loop of small bowel. There is no evidence of obstruction or incarceration at this time. The bowel shows no evidence of wall thickening. There is no evidence of pneumatosis. The stomach is incompletely distended limiting evaluation. Appendix is unremarkable. Peritoneal Cavity: There is a trace amount of free fluid in the right pericolic gutter. No free air. Lymph Nodes: Within normal limits. Bones: Within normal limits for the patient's age. There are postsurgical changes again seen with an intervertebral disc cage at L4-L5 and posterior spinal rods spanning L4-L5. There is also again seen an intramedullary odessa in the right femur. There is stable retrolisthesis of L1 on L2 and L2 on L3. Soft Tissues: There is a fat containing left inguinal hernia. PELVIS: Bladder: There is mild diffuse thickening of the wall of the urinary bladder. This may be due to decreased distension, but cystitis or chronic bladder outlet obstruction cannot be excluded. Reproductive Organs: The prostate gland appears mildly enlarged impinging upon the base of the urinary bladder. Lymph Nodes: Within normal limits. Bones: Within normal limits for the patient's age. IMPRESSION: 1. No acute abdominal or pelvic process. 2. Small bowel containing right inguinal hernia without evidence of obstruction or incarceration. 3. Small bilateral pleural effusions. 4. Trace amount of abdominal ascites. 5. Mild diffuse thickening of the wall of the urinary bladder. This may be due to cystitis or chronic bladder outlet obstruction. Please correlate clinically. 6. Stable right renal exophytic solid mass. Outpatient MRI of the kidney without and with contrast should be considered for further characterization. 7. Additional incidental finding seen in the abdomen and pelvis as described above. Lab Data Lab results reviewed: Yes I reviewed the patient's lab results. Labs: Laboratory Tests Range/Units 07/23/25 09:08 WBC (4.4-10.8) 10^3/uL 8.51 RBC (4.36-5.78) 10^6/uL 4.44 Hgb (13.5-17.5) g/dL 13.9 Hct (40.0-50.0) % 41.9 MCV (80-95) fL 94 MCH (27.0-33.0) pg 31.3 MCHC (32.0-36.0) % 33.2 RDW (11.8-14.1) % 12.7 Plt Count (130-400) 10^3/uL 121 L MPV (8.0-11.0) fL 9.7 VBG Lactate (<or=2.0) mmol/L 1.3 Sodium (136-145) mmol/L 134 L Potassium (3.5-5.1) mmol/L 3.8 Chloride (98-107) mmol/L 97 L Carbon Dioxide (21.0-32.0) mmol/L 27.9 Anion Gap (3-11) mmol/L 9.1 BUN (7-18) mg/dL 16 Creatinine (0.70-1.30) mg/dL 0.8 Est GFR (CKD-EPI 2020) (mL/min/1.73m2) 91.72 Glucose (74-106) mg/dL 111 H Calcium (8.5-10.1) mg/dL 9.3 PFSH All Active Problems (Updated 02/09/25 @ 14:01 by Ralf Cannon MD) Intractable nausea and vomiting (Acute) Bilateral pleural effusion (Acute) Gastroenteritis (Acute) Intractable cyclical vomiting (Acute) Nausea vomiting and diarrhea (Acute) Muscle strain of left thigh (Acute) Painful total knee replacement, left (Acute) Greater trochanteric bursitis of both hips (Acute) L HIP: DEPO MEDROL 12/01/23 R HIP: DEPO MEDROL 12/01/23 History of total left knee replacement (Acute 06/03/23) Myxomatous mitral valve (Acute) Cardiomyopathy (Acute) Intertrochanteric fracture of right hip (Acute 09/18/15) Asthma (Chronic) GERD (gastroesophageal reflux disease) (Chronic) H/O tobacco use, presenting hazards to health (Chronic) H/O deep venous thrombosis (Chronic) Multiple h/o tia (Chronic) Impacted esophageal foreign body (Acute) Traumatic arthropathy, left shoulder (Acute) depo medrol: 03/20/23; 12/19/22; 09/23/22; 06/21/22 Land's esophagus without dysplasia (Acute) Benign neoplasm of skin (Acute) Osteoarthritis (arthritis due to wear and tear of joints) (Chronic) Osteopenia (Acute) Dysphagia (Acute) Chronic GERD (Acute) Medical History EUSEBIA (obstructive sleep apnea) CPAP intolerant - inspire implants DOS: 10/24/2022 Hypothyroidism Liver fibrosis Right heart failure Spinal stenosis, lumbar region with neurogenic claudication Pityriasis lichenoides chronica Dermatitis Chronic gingivitis, plaque induced Cervicalgia Cerebrovascular disease 04/09/2005 Paresthesia of upper limb (07/12/13) Surgical History History of hand surgery Bilateral hand ligament repairs ~2015 and ~2016 History of nasal septoplasty (~2019) H/O umbilical hernia repair History of lung surgery VATS Hx of fracture of femur s/p right repair w/odessa placement Hx of total knee arthroplasty (09/03/98) History of shoulder surgery (2012) Right hemiarthroplasty Hx of tonsillectomy History of cervical spinal surgery History of back surgery L4-L5 Presence of automatic cardioverter/defibrillator (AICD) (12/17/17) s/p right coronary cusp PVD ablation AICD EGD - MAC (12/14/17) Social History Smoking/Tobacco Use Status: Former Tobacco Use Quit Date: 07/21/20 Smoking risk assessment performed?: Yes Alcohol Intake: former Drug use: Never Substance use type: does not use Housing: house Do you feel safe at home: Yes Do you feel safe in your relationship?: Yes
[2025-02-09 09:15] LABS: HCT 41.9 % (40.0-50.0); HGB 13.9 g/dL (13.5-17.5); MCH 31.3 pg (27.0-33.0); MCHC 33.2 % (32.0-36.0); MCV 94 fL (80-95); MPV 9.7 fL (8.0-11.0); Platelet Count 121 10^3/uL (130-400); RBC 4.44 10^6/uL (4.36-5.78); RDW 12.7 % (11.8-14.1); RDW-SD 44.0 fL; WBC 8.51 10^3/uL (4.4-10.8)
[2025-02-09] MEDS: MORPHine 10 MG/ML VIAL 2 MG IVP ×2 (09:17→14:14)
[2025-02-09 09:26] LABS: Anion Gap 9.1 mmol/L (3-11); BUN 16 mg/dL (7-18); CO2 27.9 mmol/L (21.0-32.0); Calcium 9.3 mg/dL (8.5-10.1); Chloride 97 mmol/L (98-107); Estimated GFR 91.72 (mL/min/1.73m2); Glucose 111 mg/dL (74-106); Potassium 3.8 mmol/L (3.5-5.1); Sodium 134 mmol/L (136-145)
[2025-02-09] MEDS: Metoclopramide 10 MG/2 ML VIAL 5 MG IVP (09:37)
[2025-02-09] MEDS: Lactated Ringers 500 ML IV (09:39)
[2025-02-09] MEDS: Omnipaque 350 MG/ML 500 ML BTL-Imaging package 75 ML IJ (09:59)
[2025-02-09] MEDS: Normal Saline - Diluent 50 ML VIAL IJ (09:59)
[2025-02-09 11:13] LABS: Glucose Negative (Negative)
[2025-02-09 11:18] LABS: WBC 0-2 HPF (0-5)
[2025-02-09 11:19] LABS: C & S Indicated? No
--- NOTE | 2025-02-09 12:35 | W.PM.HP.N ---
Date of service: 02/09/25 Time of Service: 12:35 Assessment and Plan Assessment and plan (1) Intractable nausea and vomiting: Status: Acute Assessment and plan: - Unknown cause at this time - Differential includes irritated but not incarcerated inguinal hernia, viral gastroenteritis - Stool studies ordered, will follow-up results - Appreciate general surgery consultation, appreciate their recommendations - Patient will be n.p.o. at this time - Started on D5 half-normal saline 75 mL an hour - Patient states that he believes he will be able to tolerate some of his medications, and understands that we will be prioritizing his dofetilide and bisoprolol (2) Cardiomyopathy: Status: Acute Assessment and plan: - Unclear as to which subtype at this time - Likely what led to implantable cardio defibrillator - Patient also on dofetilide and bisoprolol, though does not carry diagnosis of A-fib. As noted above, those medications will be prioritized as he works on improving his p.o. intake (3) GERD (gastroesophageal reflux disease): Status: Chronic Assessment and plan: - Holding Protonix at this time (4) EUSEBIA (obstructive sleep apnea): Assessment and plan: - CPAP intolerant (5) Cerebrovascular disease: Assessment and plan: - Holding home eplerenone, Lasix until patient able to fully tolerate poor p.o. intake (6) Hypothyroidism: Assessment and plan: - Holding Synthroid until able to tolerate p.o. intake History of Present Illness History of Present Illness Chief Complaint: nausea and vomiting Narrative: 75-year-old gentleman with a past medical history of EUSEBIA, hypothyroidism, right-sided heart failure, CVA, implantable defibrillator status post right coronary cusp PVD ablation, and status post hernia repair 20 years ago who presents back to the emergency department within 24 hours for intractable nausea vomiting. Patient was in the emergency department on the evening of 02/08/2025 complaining of nausea and vomiting. At that time his exam was benign, he had normal vital signs, normal CBC and CMP, given that he had a reassuring physical exam did not have imaging. Additionally, he was given antiemetics and had improvement of his symptoms was instructed to return home if symptoms persisted. Patient states that since that time his had poor appetite, he took a Zofran at 630 earlier this morning and his pain got worse. In the emergency department the patient was again noted to have normal vital signs with this time had left lower quadrant tenderness to palpation. He had normal CBC and CMP, but CT abdomen pelvis showed small bowel containing right inguinal hernia without evidence of obstruction or incarceration. At which time emergency room provider paged hospitalist for admission for patient with intractable nausea and vomiting. Review of Systems All systems reviewed & are unremarkable except as noted in HPI and below PFSH All Active Problems (Updated 02/09/25 @ 14:01 by Ralf Cannon MD) Intractable nausea and vomiting (Acute) Bilateral pleural effusion (Acute) Gastroenteritis (Acute) Intractable cyclical vomiting (Acute) Nausea vomiting and diarrhea (Acute) Muscle strain of left thigh (Acute) Painful total knee replacement, left (Acute) Greater trochanteric bursitis of both hips (Acute) L HIP: DEPO MEDROL 12/01/23 R HIP: DEPO MEDROL 12/01/23 History of total left knee replacement (Acute 06/03/23) Myxomatous mitral valve (Acute) Cardiomyopathy (Acute) Intertrochanteric fracture of right hip (Acute 09/18/15) Asthma (Chronic) GERD (gastroesophageal reflux disease) (Chronic) H/O tobacco use, presenting hazards to health (Chronic) H/O deep venous thrombosis (Chronic) Multiple h/o tia (Chronic) Impacted esophageal foreign body (Acute) Traumatic arthropathy, left shoulder (Acute) depo medrol: 03/20/23; 12/19/22; 09/23/22; 06/21/22 Land's esophagus without dysplasia (Acute) Benign neoplasm of skin (Acute) Osteoarthritis (arthritis due to wear and tear of joints) (Chronic) Osteopenia (Acute) Dysphagia (Acute) Chronic GERD (Acute) Medical History EUSEBIA (obstructive sleep apnea) CPAP intolerant - inspire implants DOS: 10/24/2022 Hypothyroidism Liver fibrosis Right heart failure Spinal stenosis, lumbar region with neurogenic claudication Pityriasis lichenoides chronica Dermatitis Chronic gingivitis, plaque induced Cervicalgia Cerebrovascular disease 04/09/2005 Paresthesia of upper limb (07/12/13) Surgical History History of hand surgery Bilateral hand ligament repairs ~2015 and ~2017 History of nasal septoplasty (~2019) H/O umbilical hernia repair History of lung surgery VATS Hx of fracture of femur s/p right repair w/odessa placement Hx of total knee arthroplasty (09/03/98) History of shoulder surgery (2012) Right hemiarthroplasty Hx of tonsillectomy History of cervical spinal surgery History of back surgery L4-L5 Presence of automatic cardioverter/defibrillator (AICD) (12/17/17) s/p right coronary cusp PVD ablation AICD EGD - MAC (12/14/17) Social History Smoking/Tobacco Use Status: Former Tobacco Use Quit Date: 07/21/20 Smoking risk assessment performed?: Yes Alcohol Intake: former Drug use: Never Substance use type: does not use Housing: house Do you feel safe at home: Yes Do you feel safe in your relationship?: Yes Meds Allergies and Home Medications Allergies Allergy/AdvReac Type Severity Reaction Status Date / Time azithromycin Allergy Severe Cardiac Verified 07/19/24 17:42 Dysrhythmia peanut Allergy Severe Anaphylaxsi Verified 07/19/24 17:42 s peas Allergy Severe Anaphylaxsi Verified 07/19/24 17:42 s tree nut Allergy Severe Anaphylaxsi Verified 07/19/24 17:42 s amoxicillin Allergy Mild Skin Rash Verified 07/19/24 17:42 gabapentin AdvReac Intermediate Dizziness/L Verified 07/19/24 17:42 ighthead lisinopril AdvReac cough Verified 07/19/24 17:42 sutures Allergy Unknown inflammed Uncoded 07/19/24 17:42 Home Medications ?Medication ?Instructions ?Recorded ?Confirmed ?Type montelukast 10 mg tablet 10 mg PO DAILY 01/25/13 02/09/25 History albuterol sulfate 90 mcg/actuation 2 puff inhalation BID PRN Wheezing 10/02/15 02/09/25 History aerosol inhaler (ProAir HFA) levothyroxine 25 mcg tablet 75 mcg PO DAILY 12/14/17 02/09/25 History diclofenac sodium 1 % topical gel 2 g topical QID 04/22/22 02/09/25 History (Arthritis Pain (diclofenac)) fluticasone propionate 50 1 spray intranasal DAILY 04/22/22 02/09/25 History mcg/actuation nasal spray,suspension (Flonase Allergy Relief) lifitegrast 5 % eye drops in a 1 drp ophthalmic (eye) BID 04/22/22 02/09/25 History dropperette (Xiidra) loratadine 10 mg tablet 10 mg PO DAILY 04/22/22 02/09/25 History finasteride 5 mg tablet 5 mg PO DAILY 06/11/22 02/09/25 History magnesium oxide 140 mg capsule 140 mg PO DAILY 06/11/22 02/09/25 History omeprazole 20 mg capsule,delayed 40 mg PO DAILY 06/11/22 02/09/25 History release modafinil 200 mg tablet 200 mg PO BID PRN 06/20/22 02/09/25 History lidocaine 5 % topical patch 1 patch topical DAILY 07/08/22 02/09/25 History epinephrine 0.3 mg/0.3 mL 0.3 mg IM ONCE 07/23/22 02/09/25 History injection, auto-injector bisoprolol fumarate 5 mg tablet 5 mg PO DAILY 03/20/23 02/09/25 History acetaminophen 500 mg tablet 1,000 mg (2 x 500 mg) PO Q8H PRN 06/03/23 02/09/25 Rx pain #90 tabs fluticasone 100 mcg-salmeterol 50 1 inh inhalation BID 06/03/23 02/09/25 History mcg/dose blistr powdr for inhalation (Advair Diskus) apixaban 5 mg tablet 5 mg PO BID 09/08/23 02/09/25 History dofetilide 500 mcg capsule 500 mcg PO Q12H 12/01/23 02/09/25 History eplerenone 25 mg tablet 50 mg PO DAILY 12/01/23 02/09/25 History furosemide 80 mg tablet 40 mg PO DAILY 12/01/23 02/09/25 History trospium 20 mg tablet 20 mg PO BID 12/01/23 02/09/25 History ondansetron 4 mg disintegrating 4 mg PO Q6H PRN nausea and 02/08/25 02/09/25 Rx tablet vomiting #30 tabs promethazine 25 mg rectal 25 mg NE Q6H PRN nausea and 02/08/25 02/09/25 Rx suppository vomiting #12 ea silodosin 8 mg capsule (Rapaflo) 8 mg PO DAILY 02/08/25 02/09/25 History Exam Narrative Exam Narrative: well appearing older gentleman sitting up in the chair no acute distress, ANO x 4, heart regular rhythm, lungs, auscultation bilaterally, abdomen with diffuse tenderness with right inguinal hernia present but easily reducible Results Labs 02/09/25 09:08 02/09/25 09:08 Labs: Laboratory Results - last 24 hr 02/09/25 02/09/25 09:08 11:06 WBC 8.51 RBC 4.44 Hgb 13.9 Hct 41.9 MCV 94 MCH 31.3 MCHC 33.2 RDW 12.7 Plt Count 121 L MPV 9.7 VBG Lactate 1.3 Sodium 134 L Potassium 3.8 Chloride 97 L Carbon Dioxide 27.9 Anion Gap 9.1 BUN 16 Creatinine 0.8 Est GFR (CKD-EPI 2020) 91.72 Glucose 111 H Calcium 9.3 Urine Color Yellow Urine Clarity Clear Urine pH 6.5 Ur Specific [place] 1.010 Urine Protein Trace Urine Ketones 40 H Urine Blood Trace-intact H Urine Nitrite Negative Urine Bilirubin Negative Urine Urobilinogen 0.2 Ur Leukocyte Esterase Negative Urine RBC 3-5 H Urine WBC 0-2 Ur Epithelial Cells Few Urine Crystals Negative Urine Bacteria Rare Urine Casts Negative Urine Mucus Trace Ur Culture Indicated? No Urine Glucose Negative Last Vital Signs Temp 98.4 F 02/09/25 08:44 Pulse 77 02/09/25 10:50 Resp 16 02/09/25 10:50 BP 144/82 H 02/09/25 10:46 Pulse Ox 95 02/09/25 10:50 Time Spent Time spent with Patient: >75 minutes Time was spent: preparing to see the patient(eg.review tests), obtaining and/or reviewing separately otained hiistory, ordering medications,tests, procedures, referring, communicating with other health career services representative, indepentently interpreting results, counseling the patient and care coordination
--- NOTE | 2025-02-09 14:03 | W.PC.ACHO ---
Registration Status: REG ER Primary Language: Preferred Language: Bulgarian ED Information & Data Chief Complaint Nausea/Vomit/Diar 02/09/25 10:15 Chief Complaint Nausea/Vomit/Diar 02/09/25 09:03 Triage Note N/V x2 days. seen here 02/09/25 08:44 yesterday for same symptoms. unable to keep anything down. denies CP/SOB, fevers or diarrhea. centralized belly pain. has been taking zofran. last dose ~ 629. Medical / Surgical History (Last Reviewed 07/29/24 @ 14:42 by SRIRAM Pizarro) EUSEBIA (obstructive sleep apnea) Hypothyroidism Liver fibrosis Right heart failure Spinal stenosis, lumbar region with neurogenic claudication Pityriasis lichenoides chronica Dermatitis Chronic gingivitis, plaque induced Cervicalgia Cerebrovascular disease Paresthesia of upper limb (07/12/13) (Last Reviewed 07/29/24 @ 14:42 by SRIRAM Pizarro) History of hand surgery History of nasal septoplasty (~2019) H/O umbilical hernia repair History of lung surgery Hx of fracture of femur Hx of total knee arthroplasty (09/03/98) History of shoulder surgery (2012) Hx of tonsillectomy History of cervical spinal surgery History of back surgery Presence of automatic cardioverter/defibrillator (AICD) (12/17/17) EGD - MAC (12/14/17) Most Recent Vital Signs Temperature 36.9 C 02/09/25 08:44 Temperature Source Oral 02/09/25 08:44 Pulse 72 02/09/25 13:50 Pulse 72 02/09/25 13:50 Respiratory Rate 20 02/09/25 13:50 Blood Pressure 149/85 H 02/09/25 12:16 Blood Pressure Mean 107 02/09/25 12:16 Pulse Oximetry 95 02/09/25 13:50 Oxygen Delivery Method Room Air 02/09/25 08:44 Oxygen Flow Rate 0 02/09/25 08:44 Pain Level 8 02/09/25 08:44 Allergies azithromycin Allergy (Severe, Verified 07/19/24 17:42) Cardiac Dysrhythmia peanut Allergy (Severe, Verified 07/19/24 17:42) Anaphylaxsis peas Allergy (Severe, Verified 07/19/24 17:42) Anaphylaxsis tree nut Allergy (Severe, Verified 07/19/24 17:42) Anaphylaxsis amoxicillin Allergy (Mild, Verified 07/19/24 17:42) Skin Rash gabapentin Adverse Reaction (Intermediate, Verified 07/19/24 17:42) Dizziness/Lighthead lisinopril Adverse Reaction (Verified 07/19/24 17:42) cough sutures Allergy (Unknown, Uncoded 07/19/24 17:42) inflammed Active Medications Generic Name Dose Route Start Last Admin Trade Name Freq PRN Reason Stop Dose Admin Iohexol 75 ml 02/09/25 10:00 02/09/25 09:59 Omnipaque 350 Mg/Ml 500 Ml Btl-Imaging Package IJ 03/11/25 23:59 75 ml DIRECTED JOY Administration Sodium Chloride 50 ml 02/09/25 10:00 02/09/25 09:59 Normal Saline - Diluent 50 Ml Vial IJ 50 ml .FOR DI USE JOY Administration IV IV Catheter Type [Left Saline Lock Antecubital] IV Catheter Gauge [Left 18 Antecubital] Diagnostics 02/09/25 02/09/25 Range/Units 11:06 09:08 WBC 8.51 (4.4-10.8) 10^3/uL RBC 4.44 (4.36-5.78) 10^6/uL Hgb 13.9 (13.5-17.5) g/dL Hct 41.9 (40.0-50.0) % MCV 94 (80-95) fL MCH 31.3 (27.0-33.0) pg MCHC 33.2 (32.0-36.0) % RDW 12.7 (11.8-14.1) % Plt Count 121 L (130-400) 10^3/uL MPV 9.7 (8.0-11.0) fL VBG Lactate 1.3 (<or=2.0) mmol/L Sodium 134 L (136-145) mmol/L Potassium 3.8 (3.5-5.1) mmol/L Chloride 97 L (98-107) mmol/L Carbon Dioxide 27.9 (21.0-32.0) mmol/L Anion Gap 9.1 (3-11) mmol/L BUN 16 (7-18) mg/dL Creatinine 0.8 (0.70-1.30) mg/dL Est GFR (CKD-EPI 2020) 91.72 (mL/min/1.73m2) Glucose 111 H (74-106) mg/dL Calcium 9.3 (8.5-10.1) mg/dL Urine Color Yellow (Yellow) Urine Clarity Clear (Clear) Urine pH 6.5 (5-8) Ur Specific [place] 1.010 (1.005-1.025) Urine Protein Trace (Neg-Trace) mg/dL Urine Ketones 40 H (Negative) mg/dL Urine Blood Trace-intact H (Negative) Urine Nitrite Negative (Negative) Urine Bilirubin Negative (Negative) Urine Urobilinogen 0.2 (Up to 0.2) mg/dL Ur Leukocyte Esterase Negative (Negative) Urine RBC 3-5 H (0-2) HPF Urine WBC 0-2 (0-5) HPF Ur Epithelial Cells Few (Negative) HPF Urine Crystals Negative (Negative) HPF Urine Bacteria Rare (Negative) HPF Urine Casts Negative (Negative) LPF Urine Mucus Trace (Negative) Ur Culture Indicated? No Urine Glucose Negative (Negative) mg/dL Intake and Output - 24 Hour Total 02/09/25 08:41 thru 02/09/25 10:15 Weight 76.204 kg Other: Emesis Description Retching Falls Risk Assessment History of Falls No History 02/09/25 10:15 Contributing Factors No Factors 02/09/25 10:15 Tubes/Lines With any additional score 02/09/25 10:15 Gait Evaluation No gait disturbance 02/09/25 10:15 Cognition No cognitive impairment 02/09/25 10:15 Fall Total Score 20 02/09/25 10:15 Level of Risk Standard/Low Risk 02/09/25 10:15 Problems (Last Reviewed 07/29/24 @ 14:42 by SRIRAM Pizarro) Bilateral pleural effusion (Acute) Gastroenteritis (Acute) Intractable cyclical vomiting (Acute) v v v v v v v v v Sending and/or Receiving Nurses: Please use comment section below to note any information pertinent to the patient hand-off not included above. Information / Comments: paged at 1312, called for report at 1352. 18 L AC. Stool sample needs to be collected. Report received from: Margy - ED Nurse
[2025-02-09] MEDS: DEXTROSE 5%-0.45% SALINE 1,000 ML 75 ML IV (16:19)
[2025-02-09] MEDS: Budesonide/Formoterol 80/4.5 6.9 GM 60 PUFF INH IH (20:18)
[2025-02-09] MEDS: Dofetilide 250 MCG CAP 500 MCG PO (20:37)
[2025-02-09] MEDS: Normal Saline Flush 10 ML SYR IVP (20:37)
[2025-02-10 06:08] LABS: HCT 38.0 % (40.0-50.0); HGB 12.7 g/dL (13.5-17.5); MCH 31.8 pg (27.0-33.0); MCHC 33.4 % (32.0-36.0); MCV 95 fL (80-95); MPV 10.1 fL (8.0-11.0); Platelet Count 102 10^3/uL (130-400); RBC 3.99 10^6/uL (4.36-5.78); RDW 12.9 % (11.8-14.1); RDW-SD 45.2 fL; WBC 6.59 10^3/uL (4.4-10.8)
[2025-02-10 06:20] LABS: Anion Gap 5.9 mmol/L (3-11); BUN 15 mg/dL (7-18); CO2 29.1 mmol/L (21.0-32.0); Calcium 8.5 mg/dL (8.5-10.1); Chloride 102 mmol/L (98-107); Estimated GFR 95.49 (mL/min/1.73m2); Glucose 115 mg/dL (74-106); Magnesium 1.8 mg/dL (1.8-2.4); Potassium 3.6 mmol/L (3.5-5.1); Sodium 137 mmol/L (136-145)
[2025-02-10] MEDS: DEXTROSE 5%-0.45% SALINE 1,000 ML 75 ML IV ×2 (07:30→20:24)
[2025-02-10 07:50] VITALS: BP 137/77; PULSE 55; RESP 15; TEMP 37.1; O2SAT 94
[2025-02-10] MEDS: Budesonide/Formoterol 80/4.5 6.9 GM 60 PUFF INH IH ×2 (08:23→20:24)
[2025-02-10] MEDS: Bisoprolol 5 MG TAB PO (08:33)
[2025-02-10] MEDS: Dofetilide 250 MCG CAP 500 MCG PO ×2 (08:33→20:25)
[2025-02-10] MEDS: Enoxaparin 40 MG/0.4 ML SYR SC (08:33)
[2025-02-10] MEDS: Fluticasone NASAL SPRAY 16 GM BTL NS (08:40)
[2025-02-10] MEDS: Normal Saline Flush 10 ML SYR IVP ×2 (08:41→20:25)
[2025-02-10] MEDS: Metoclopramide 10 MG/2 ML VIAL 5 MG IVP (10:20)
[2025-02-10 10:58] VITALS: BP 153/92; PULSE 69; RESP 16; TEMP 37.1; O2SAT 98
[2025-02-10] MEDS: Ketorolac 15 MG/ML VIAL IVP (12:32)
--- NOTE | 2025-02-10 12:39 | PHACLINREV_ITS ---
Pharmacy Admission Review Admission Clinical Review Admission Pharmacy Review: Intractable nausea and vomiting (Acute) Bilateral pleural effusion (Acute) Gastroenteritis (Acute) Intractable cyclical vomiting (Acute) Cardiomyopathy (Acute) azithromycin Allergy (Severe, Verified 07/19/24 17:42) Cardiac Dysrhythmia peanut Allergy (Severe, Verified 07/19/24 17:42) Anaphylaxsis peas Allergy (Severe, Verified 07/19/24 17:42) Anaphylaxsis tree nut Allergy (Severe, Verified 07/19/24 17:42) Anaphylaxsis amoxicillin Allergy (Mild, Verified 07/19/24 17:42) Skin Rash gabapentin Adverse Reaction (Intermediate, Verified 07/19/24 17:42) Dizziness/Lighthead lisinopril Adverse Reaction (Verified 07/19/24 17:42) cough sutures Allergy (Unknown, Uncoded 07/19/24 17:42) inflammed Resuscitation Status Full Code Height 6 ft Weight 76.2 kg Pharmacy Admission Review Renal Dosing Renal Dosing: BUN 15 mg/dL (7-18) 02/10/25 05:33 Creatinine 0.7 mg/dL (0.70-1.30) 02/10/25 05:33 Medications needing adjustments: Reviewed (CrCl 67.7 mL/min) List of meds needing interventions: Current medications are okay Anticoagulation Anticoagulation: Hgb 12.7 g/dL (13.5-17.5) L 02/10/25 05:33 Hct 38.0 % (40.0-50.0) L 02/10/25 05:33 Plt Count 102 10^3/uL (130-400) L 02/10/25 05:33 Creatinine 0.7 mg/dL (0.70-1.30) 02/10/25 05:33 DVT Prophylaxis: Reviewed (Hgb decreased from 13.9) Medications: Enoxaparin (40mg daily) Relevant Labs Relevant Labs: Sodium 137 mmol/L (136-145) 02/10/25 05:33 Potassium 3.6 mmol/L (3.5-5.1) 02/10/25 05:33 Chloride 102 mmol/L (98-107) 02/10/25 05:33 Magnesium 1.8 mg/dL (1.8-2.4) 02/10/25 05:33 Electrolytes, C-Reactive P, ESR: Reviewed Cardiac Review BP, HR, EF%: Reviewed (BP 153/92 and HR WNL) List meds needing interventions: Has orders for bisoprolol 5mg daily and dofetilide 500mcg q12h QTc Review QTc: Reviewed (492 from 02/08/25) IV to PO Switch IV Medications: Reviewed (ketorolac and metoclopramide - NPO) Home Meds Home Med List reviewed: Reviewed Relevent Home Meds Not ordered & why?: Advair (substituted with Symbicort per pharmacy protocol), Eliquis (on Lovenox), diclofenac gel, eplerenone, finasteride, furosemide, levothyroxine, lidocaine patch, loratadine, magnesium, modafinil, montelukast, omeprazole, ondansetron, promethazine, siladosin and trospium Per provider holding most home meds (except bisoprolol and dofetilide) until pat ient has improved PO intake Current Meds Current Medication Order Review: Reviewed
[2025-02-10 14:42] VITALS: BP 146/86; PULSE 63; TEMP 36.5; O2SAT 96
[2025-02-10] MEDS: Lidocaine 5% Patch 2 PATCH TP (15:24)
--- NOTE | 2025-02-10 15:53 | PDOC.CMIN ---
Date of service: 02/10/25 Time of Service: 15:53 Care Management Initial Assmt Initial Assessment Reason for Hospitalization: Intractable nausea, vomiting Functional Status/Living Situation Patient Presentation: Mo was sitting up in bed when CM met with him, visiting with his s/o, Anni. He stated that he is not getting better as quickly as he would like; he was expecting to leave this afternoon, but he reported that he was sick after eating jello this afternoon, therefore he will remain overnight for continued observation. He is agreeable to this plan. Mo reported that he lives in [facility] with his s/o, Anni, and together they have three children who all live out of town, but are supportive. 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 He is a , and is independent at baseline. CM will continue to follow. 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; [employer]) Instrumental Activities of Daily Living (ADLs): Independent Medications Medication Management: No Issues/Barriers identified Advance Directives Advance Directives: Do you have an Advance Directive: Y 04/07/24, 13:58 AD On File at [facility]: Y 04/07/24, 13:58 Date Asked 02/09/25 02/09/25, 13:04 AD Date Reviewed 02/09/25 02/09/25, 08:50 COLST On File at [facility] COLST Date Scanned Code Status Resuscitation Status Full Code Insurance Coverage/Financial Issues Insurance: Mo reported that he has [place] insurance Currently billing [facility] primay, for Life secondary Financial Issues: CM reached out to Access to determine his primary insurance; pt states VA should be billed primary Care Team Visit Care Team Role Provider Type Romana Cox Primary Care Provider NON-[facility] STAFF PHYSICIAN Ángela Pollack, DIE REPAIR Emergency Provider NURSE PRACTITIONER Ralf Cannon MD Admit Provider [facility] STAFF PHYSICIAN Attending Provider Discharge Potential Discharge Needs: PCP F/U Appt Anticipated Barriers to Discharge: None Identified Patient/Family Education Needs: Review discharge instructions, discuss Ask Me Three Transportation: Private vehicle Plan: Anticipate Mo will return home once medically cleared. His s/o will drive him home via private vehicle when ready. He will follow up with his PCP and discharge plan of care. CM will continue to follow. Social Determinants of Health Screening Social Determinants of health last assessed in clinic: 02/10/25 Will the Patient Participate in the Screening?: Yes Do you worry about having a steady place to live?: no Problems where you live: no known problems In the past 12 months, have you had to go without electric, gas, oil or water in your home?: no 1. Within the past 12 months, we worried whether our food would run out before we got money to buy more.: Never true 2. Within the past 12 months, the food we bought just didn't last and we didn't have money to get more.: Never true Has lack of transportation kept you from medical appointments or from doing things needed for daily living?: no Has anyone in your life made you feel unsafe or unsupported?: no How hard is it for you to pay for the very basics like food, housing, medical care, and heating? 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 PFSH All Active Problems (Updated 02/09/25 @ 14:01 by Ralf Cannon MD) Intractable nausea and vomiting (Acute) Bilateral pleural effusion (Acute) Gastroenteritis (Acute) Intractable cyclical vomiting (Acute) Nausea vomiting and diarrhea (Acute) Muscle strain of left thigh (Acute) Painful total knee replacement, left (Acute) Greater trochanteric bursitis of both hips (Acute) L HIP: DEPO MEDROL 12/01/23 R HIP: DEPO MEDROL 12/01/23 History of total left knee replacement (Acute 06/03/23) Myxomatous mitral valve (Acute) Cardiomyopathy (Acute) Intertrochanteric fracture of right hip (Acute 09/18/15) Asthma (Chronic) GERD (gastroesophageal reflux disease) (Chronic) H/O tobacco use, presenting hazards to health (Chronic) H/O deep venous thrombosis (Chronic) Multiple h/o tia (Chronic) Impacted esophageal foreign body (Acute) Traumatic arthropathy, left shoulder (Acute) depo medrol: 03/20/23; 12/19/22; 09/23/22; 06/21/22 Land's esophagus without dysplasia (Acute) Benign neoplasm of skin (Acute) Osteoarthritis (arthritis due to wear and tear of joints) (Chronic) Osteopenia (Acute) Dysphagia (Acute) Chronic GERD (Acute) Medical History EUSEBIA (obstructive sleep apnea) CPAP intolerant - inspire implants DOS: 10/24/2022 Hypothyroidism Liver fibrosis Right heart failure Spinal stenosis, lumbar region with neurogenic claudication Pityriasis lichenoides chronica Dermatitis Chronic gingivitis, plaque induced Cervicalgia Cerebrovascular disease 04/09/2005 Paresthesia of upper limb (07/12/13) Surgical History History of hand surgery Bilateral hand ligament repairs ~2015 and ~2016 History of nasal septoplasty (~2019) H/O umbilical hernia repair History of lung surgery VATS Hx of fracture of femur s/p right repair w/odessa placement Hx of total knee arthroplasty (09/03/98) History of shoulder surgery (2012) Right hemiarthroplasty Hx of tonsillectomy History of cervical spinal surgery History of back surgery L4-L5 Presence of automatic cardioverter/defibrillator (AICD) (12/17/17) s/p right coronary cusp PVD ablation AICD EGD - MAC (12/14/17) Social History Smoking/Tobacco Use Status: Former Tobacco Use Quit Date: 07/21/20 Smoking risk assessment performed?: Yes Alcohol Intake: former Drug use: Never Substance use type: does not use Housing: house Do you feel safe at home: Yes Do you feel safe in your relationship?: Yes
--- NOTE | 2025-02-10 16:40 | PGE_ITS ---
Date of Service Date of service: 02/10/25 Time of Service: 16:40 Assessment and Plan Assessment and plan (1) Intractable nausea and vomiting: Status: Acute Assessment and plan: - Unknown cause at this time - Differential includes irritated but not incarcerated inguinal hernia, viral gastroenteritis - Stool studies ordered, will follow-up results - Appreciate general surgery consultation, appreciate their recommendations - Diet has been advanced to full liquids, advance as tolerated - Started on D5 half-normal saline 75 mL an hour - Patient states that he believes he will be able to tolerate some of his medications, and understands that we will be prioritizing his dofetilide and bisoprolol (2) Cardiomyopathy: Status: Acute Assessment and plan: - Unclear as to which subtype at this time - Likely what led to implantable cardio defibrillator - Patient also on dofetilide and bisoprolol, though does not carry diagnosis of A-fib. As noted above, those medications will be prioritized as he works on improving his p.o. intake (3) GERD (gastroesophageal reflux disease): Status: Chronic Assessment and plan: - Holding Protonix at this time (4) EUSEBIA (obstructive sleep apnea): Assessment and plan: - CPAP intolerant (5) Cerebrovascular disease: Assessment and plan: - Holding home eplerenone, Lasix until patient able to fully tolerate poor p.o. intake (6) Hypothyroidism: Assessment and plan: - Holding Synthroid until able to tolerate p.o. intake Subjective Subjective Interval history since last seen: Patient has expressed some improvement in his nausea and vomiting. He understands a plan to slowly advance his diet as tolerated has no other complaints or concerns at this time. Exam Narrative Exam Narrative: well appearing older gentleman sitting up in the chair no acute distress, ANO x 4, heart regular rhythm, lungs, auscultation bilaterally, abdomen with diffuse tenderness with right inguinal hernia present but easily reducible Objective Last Vital Signs Temp 97.7 F 02/10/25 14:42 Pulse 63 02/10/25 14:42 Resp 16 02/10/25 10:58 BP 146/86 H 02/10/25 14:42 Pulse Ox 96 02/10/25 14:42 Laboratory Results - last 24 hr 02/10/25 05:33 WBC 6.59 RBC 3.99 L Hgb 12.7 L Hct 38.0 L MCV 95 MCH 31.8 MCHC 33.4 RDW 12.9 Plt Count 102 L MPV 10.1 Sodium 137 Potassium 3.6 Chloride 102 Carbon Dioxide 29.1 Anion Gap 5.9 BUN 15 Creatinine 0.7 Est GFR (CKD-EPI 2020) 95.49 Glucose 115 H Calcium 8.5 Magnesium 1.8 Time Spent with Patient Time Spent with Patient: >50 minutes Time was spent: preparing to see the patient(eg.review tests), obtaining and/or reviewing separately otained hiistory, ordering medications,tests, procedures, referring, communicating with other health youth care professional, indepentently interpreting results, counseling the patient and care coordination
[2025-02-10 20:27] VITALS: BP 130/84; PULSE 56; RESP 16; TEMP 37.1; O2SAT 95
[2025-02-11] MEDS: Patch Removal LIDOCAINE 1 EACH TP (03:45)
[2025-02-11 04:36] VITALS: BP 144/89; PULSE 62; RESP 16; TEMP 36.8; O2SAT 94
[2025-02-11] MEDS: Budesonide/Formoterol 80/4.5 6.9 GM 60 PUFF INH IH (07:58)
[2025-02-11 08:19] VITALS: BP 139/77; PULSE 56; RESP 16; TEMP 36.5; O2SAT 96
[2025-02-11] MEDS: Dofetilide 250 MCG CAP 500 MCG PO (08:39)
[2025-02-11] MEDS: Enoxaparin 40 MG/0.4 ML SYR SC (08:39)
[2025-02-11] MEDS: Bisoprolol 5 MG TAB PO (08:39)
[2025-02-11] MEDS: Normal Saline Flush 10 ML SYR IVP (08:40)
--- NOTE | 2025-02-11 09:06 | W.PM.DS.N ---
Date of service: 02/11/25 Time of Service: 09:06 DS: Diagnosis Discharge Diagnosis (1) Intractable nausea and vomiting: Status: Acute (2) Cardiomyopathy: Status: Acute (3) GERD (gastroesophageal reflux disease): Status: Chronic (4) EUSEBIA (obstructive sleep apnea): (5) Cerebrovascular disease: (6) Hypothyroidism: Discharge Plan Disposition Patient Disposition: Home Condition: Good Discharge Details Reason For Visit: Intractable Nausea and Vomiting Admit Date/Time: 02/09/25 12:34 Admit Provider: Ralf Cannon Attending Provider: Ralf Cannon Primary Care Provider: Romana Cox Hospital Course Hospital Course: Patient initially presented with signs and symptoms consistent with intractable nausea and vomiting after he was seen in the emergency department, sent home with antiemetics and continues to have nausea and vomiting leading to him not being able to take his oral medications. Upon being admitted, he was n.p.o. except for his most important medications including fact flecainide and bisoprolol. He was able to tolerate those medications and had his diet slowly advanced and was able to tolerate without any nausea or vomiting. At which time it was determined that he was stable for discharge home. Home Meds and New Rx's Prescriptions: Continued eplerenone 25 mg tablet 50 mg PO DAILY Xiidra 5 % dropperette 1 drp ophthalmic (eye) BID Rx Instructions: administer approximately 12 hours apart diclofenac sodium [Arthritis Pain (diclofenac)] 1 % gel 2 g topical QID Rx Instructions: apply to single elbow, wrist or hand; for hand includes palm/fingers/back of hand loratadine 10 mg tablet 10 mg PO DAILY fluticasone propionate [Flonase Allergy Relief] 50 mcg/actuation spray,suspension 1 spray intranasal DAILY Rx Instructions: administer into each nostril epinephrine 0.3 mg/0.3 mL auto-injector 0.3 mg IM ONCE Rx Instructions: as a single dose; may repeat once bisoprolol fumarate 5 mg tablet 5 mg PO DAILY apixaban 5 mg tablet 5 mg PO BID trospium 20 mg tablet 20 mg PO BID Rx Instructions: administer on an empty stomach dofetilide 500 mcg capsule 500 mcg PO Q12H finasteride 5 mg tablet 5 mg PO DAILY magnesium oxide 140 mg capsule 140 mg PO DAILY omeprazole 20 mg capsule,delayed release(DR/EC) 40 mg PO DAILY modafinil 200 mg tablet 200 mg PO BID PRN lidocaine 5 % adhesive patch,medicated 1 patch topical DAILY Rx Instructions: leave on most painful area for up to 12 hrs furosemide 80 mg tablet 40 mg PO DAILY montelukast 10 MG tablet 10 mg PO DAILY albuterol sulfate [ProAir HFA] 200 PUFF HFA aerosol inhaler 2 puff Inhalation BID PRN (Reason: Wheezing) levothyroxine 25 MCG tablet 75 mcg PO DAILY fluticasone propion-salmeterol [Advair Diskus] 100-50 mcg/dose blister with device 1 inh inhalation BID acetaminophen 500 mg tablet 1,000 mg PO Q8H PRN Qty: 90 0RF Rx Instructions: Take two tablets up to every 8 hours as needed for pain ondansetron 4 mg tablet,disintegrating 4 mg PO Q6H PRN (Reason: nausea and vomiting) Qty: 30 0RF promethazine 25 mg suppository 25 mg NV Q6H PRN (Reason: nausea and vomiting) Qty: 12 0RF silodosin [Rapaflo] 8 mg capsule 8 mg PO DAILY Rx Instructions: must administer with a meal/food Discharge Instructions Activity:: Activity as Tolerated Equipment/Supplies:: No Equipment Needed Diet:: As Tolerated Discharge Orders Discharge Orders: Discharge Order (Routine); Ordered 02/11/25 Ordered By: Ralf Cannon DS: Summary Time Spent with Patient providing and/or coordinating discharge services: Greater than 30 minutes Status at Discharge Functional status at discharge: independent ambulation Overall status at discharge: patient is back to baseline Mental Status: mental status grossly normal Speech and Movement: speech and movement normal Mood: congruent mood Affect: normal affect Exam Narrative Exam Narrative: well appearing older gentleman sitting up in the chair no acute distress, ANO x 4, heart regular rhythm, lungs, auscultation bilaterally, abdomen with diffuse tenderness with right inguinal hernia present but easily reducible Psych Mental Status: mental status grossly normal Speech and Movement: speech and movement normal Mood: congruent mood Affect: normal affect DS: Data Vitals/I&O Vitals and I&O: Vital Signs Temperature 97.7 F 02/11/25 08:19 Temperature Source Temporal Artery Scan 02/11/25 08:19 Pulse 56 L 02/11/25 08:19 Pulse Rhythm Regular 02/09/25 14:23 Pulse 72 02/09/25 13:50 Respiratory Rate 16 02/11/25 08:19 Respiratory Effort Normal, Non-Labored 02/09/25 14:23 Respiratory Depth Normal 02/09/25 14:23 Respiratory Pattern Normal 02/09/25 14:23 Blood Pressure 139/77 02/11/25 08:19 Blood Pressure Mean 97 02/11/25 08:19 Pulse Oximetry 96 02/11/25 08:19 Oxygen Delivery Method Room Air 02/11/25 08:19 Oxygen Flow Rate 0 02/11/25 08:19 Pain Level 4 02/11/25 04:36 Comment RN Notified 02/10/25 14:42 Intake & Output 02/10/25 02/11/25 02/11/25 17:59 05:59 17:59 Intake Total 460 / 460 948.75 / 1408.75 Output Total 675 / 675 700 / 1375 650 / 650 Balance -215 / -215 248.75 / 33.75 -650 / -650 Intake: IV 948.75 / 948.75 Oral 460 / 460 Output: Urine 675 / 675 700 / 1375 650 / 650 Other: Urine Color Yellow Light [place] Yellow Urine Appearance Clear Clear Clear Urine Odor Normal Strong Strong PFSH All Active Problems (Updated 02/09/25 @ 14:01 by Ralf Cannon MD) Intractable nausea and vomiting (Acute) Bilateral pleural effusion (Acute) Gastroenteritis (Acute) Intractable cyclical vomiting (Acute) Nausea vomiting and diarrhea (Acute) Muscle strain of left thigh (Acute) Painful total knee replacement, left (Acute) Greater trochanteric bursitis of both hips (Acute) L HIP: DEPO MEDROL 12/01/23 R HIP: DEPO MEDROL 12/01/23 History of total left knee replacement (Acute 06/03/23) Myxomatous mitral valve (Acute) Cardiomyopathy (Acute) Intertrochanteric fracture of right hip (Acute 09/18/15) Asthma (Chronic) GERD (gastroesophageal reflux disease) (Chronic) H/O tobacco use, presenting hazards to health (Chronic) H/O deep venous thrombosis (Chronic) Multiple h/o tia (Chronic) Impacted esophageal foreign body (Acute) Traumatic arthropathy, left shoulder (Acute) depo medrol: 03/20/23; 12/19/22; 09/23/22; 06/21/22 Land's esophagus without dysplasia (Acute) Benign neoplasm of skin (Acute) Osteoarthritis (arthritis due to wear and tear of joints) (Chronic) Osteopenia (Acute) Dysphagia (Acute) Chronic GERD (Acute) Medical History EUSEBIA (obstructive sleep apnea) CPAP intolerant - inspire implants DOS: 10/24/2022 Hypothyroidism Liver fibrosis Right heart failure Spinal stenosis, lumbar region with neurogenic claudication Pityriasis lichenoides chronica Dermatitis Chronic gingivitis, plaque induced Cervicalgia Cerebrovascular disease 04/09/2005 Paresthesia of upper limb (07/12/13) Surgical History History of hand surgery Bilateral hand ligament repairs ~2015 and ~2016 History of nasal septoplasty (~2019) H/O umbilical hernia repair History of lung surgery VATS Hx of fracture of femur s/p right repair w/odessa placement Hx of total knee arthroplasty (09/03/98) History of shoulder surgery (2012) Right hemiarthroplasty Hx of tonsillectomy History of cervical spinal surgery History of back surgery L4-L5 Presence of automatic cardioverter/defibrillator (AICD) (12/17/17) s/p right coronary cusp PVD ablation AICD EGD - MAC (12/14/17) Social History Smoking/Tobacco Use Status: Former Tobacco Use Quit Date: 07/21/20 Smoking risk assessment performed?: Yes Alcohol Intake: former Drug use: Never Substance use type: does not use Housing: house Do you feel safe at home: Yes Do you feel safe in your relationship?: Yes Time Spent with Patient Time Spent with Patient: <45 minutes Time was spent: preparing to see the patient(eg.review tests), obtaining and/or reviewing separately otained hiistory, ordering medications,tests, procedures, referring, communicating with other health healthcare analyst, indepentently interpreting results, counseling the patient and care coordination
--- NOTE | 2025-02-11 09:18 | W.SURGCON ---
Date of service: 02/09/25 Time of Service: 12:45 Assessment and Plan Assessment and plan (1) Nausea vomiting and diarrhea: Status: Acute Assessment and plan: symptoms and exam are more consistent with a gastrienteritis or viral entity. He is not obstructed evidenced by diarrhea and CT scan showing patent normal bowel loops. His hernias are redicuble and nontender, no indication for urgent repair. Given this is his second trip to the er and he is not tolerating oral intake at all at home, including trying intake of zofran prescribed previously, I think he should be admitted for hydration and observation. I will have him see me electively in office to review hernia repair. (2) Right heart failure: Assessment and plan: R heart failure, history of possible valve repair, anticoagulation for arrhythmia - multiple cardiac and cardiovascular comorbidities that may make surgery unsafe. will review at length in office. no need to hold anticoagulants now as there is no plan for acute surgical repair of his hernias. (3) Anticoagulant long-term use: Status: Acute History of Present Illness History of Present Illness Chief Complaint: hernia, nausea, vomiting Narrative: This is a 75-year-old male who presented to the emergency department for the second day in a row for intractable nausea and vomiting. His symptoms began yesterday and have worsened. He feels pain in his left lower quadrant that is vague and sharp. He has centralized abdominal pain at times but wonders if his known inguinal hernia is the problem. He has had nonbloody nonbilious emesis of any oral intake. He has had diarrhea as well. Yesterday he had a large amount of stool that was somewhat formed but today he has passed liquid stools. He feels bloated. He is on anticoagulation for history of abnormal heart rhythm and for heart failure he tells me. His says he has a defibrillator. Patient notes he has had the right inguinal hernia for many years. He does not recall the triggering event or when it first started, but it has gradually gotten larger over time. Today the hernia is not different than it normally is. When he touches the area there is no pain. The hernia reduces when he lays down. He is able to reduce the hernia at home. CT scan was done on arrival and shows a right sided hernia of the inguinal canal without signs of bowel obstruction or strangulation. He also has a small knuckle of bowel protruding through a midline infraumbilical ventral hernia. I was called regarding my input on whether or not the hernias are contributing to his symptoms. The patient reports he has been feeling tired. He is thirsty. He has a poor appetite. He has chronic joint aches and pains. He has chronic back pain. He has easy bruising. He has dyspnea with exertion that is mild and chronic. Denies palpitations. Review of Systems All systems reviewed & are unremarkable except as noted in HPI and below PFSH All Active Problems (Updated 02/19/25 @ 18:48 by Fátima Gordillo MD) Anticoagulant long-term use (Acute) Nausea vomiting and diarrhea (Acute) Muscle strain of left thigh (Acute) Painful total knee replacement, left (Acute) Greater trochanteric bursitis of both hips (Acute) L HIP: DEPO MEDROL 12/01/23 R HIP: DEPO MEDROL 12/01/23 History of total left knee replacement (Acute 06/03/23) Myxomatous mitral valve (Acute) Cardiomyopathy (Acute) Intertrochanteric fracture of right hip (Acute 09/18/15) Asthma (Chronic) GERD (gastroesophageal reflux disease) (Chronic) H/O tobacco use, presenting hazards to health (Chronic) H/O deep venous thrombosis (Chronic) Multiple h/o tia (Chronic) Impacted esophageal foreign body (Acute) Traumatic arthropathy, left shoulder (Acute) depo medrol: 03/20/23; 12/19/22; 09/23/22; 06/21/22 Land's esophagus without dysplasia (Acute) Benign neoplasm of skin (Acute) Osteoarthritis (arthritis due to wear and tear of joints) (Chronic) Osteopenia (Acute) Dysphagia (Acute) Chronic GERD (Acute) Medical History EUSEBIA (obstructive sleep apnea) CPAP intolerant - inspire implants DOS: 10/24/2022 Hypothyroidism Liver fibrosis Right heart failure Spinal stenosis, lumbar region with neurogenic claudication Pityriasis lichenoides chronica Dermatitis Chronic gingivitis, plaque induced Cervicalgia Cerebrovascular disease 04/09/2005 Paresthesia of upper limb (07/12/13) Surgical History History of hand surgery Bilateral hand ligament repairs ~2015 and ~2017 History of nasal septoplasty (~2019) H/O umbilical hernia repair History of lung surgery VATS Hx of fracture of femur s/p right repair w/odessa placement Hx of total knee arthroplasty (09/03/98) History of shoulder surgery (2012) Right hemiarthroplasty Hx of tonsillectomy History of cervical spinal surgery History of back surgery L4-L5 Presence of automatic cardioverter/defibrillator (AICD) (12/17/17) s/p right coronary cusp PVD ablation AICD EGD - MAC (12/14/17) Social History Smoking/Tobacco Use Status: Former Tobacco Use Quit Date: 07/21/20 Smoking risk assessment performed?: Yes Alcohol Intake: former Drug use: Never Substance use type: does not use Housing: house Do you feel safe at home: Yes Do you feel safe in your relationship?: Yes Exam Narrative Exam Narrative: awake, NAD eomi, MMM midline trachea, neck is symmetric PULM: normal resp effort, equal chest rise with respiration, no wheezing audible CARDIAC: regular rate, normal perfusion abdomen is nondistended. He has a soft reducible midline ventral hernia. no tenderness to palpation of the hernia. LLQ mild tenderness. R inguina hernia is easily reducible and nontender. extremities are without deformity, normal movement of all four extremities speech is clear and coherent mood and affect are congruent, no focal neurological deficits skin without rash Results Last Vital Signs Temp 97.7 F 02/11/25 08:19 Pulse 56 L 02/11/25 08:19 Resp 16 02/11/25 08:19 BP 139/77 02/11/25 08:19 Pulse Ox 96 02/11/25 08:19 Labs 02/10/25 05:33 02/10/25 05:[address] scan report/results: report reviewed and image reviewed
--- NOTE | 2025-02-11 10:05 | PDOC.CMDIS ---
Date of service: 02/11/25 Time of Service: 11:13 LACE Index Scoring Tool Questions: Length of Stay (in days): 2 Was the patient admitted via the E.D.?: Yes E.D. Visits: 2 Answers: Total Score: 7 Risk of Readmission: Low Risk Care Management Discharge Plan Reason for Hospitalization: Intractable Nausea and Vomiting Discharge Plan: Mo will return home today. His s/o will drive him home via private vehicle when ready. He will follow up with his PCP and discharge plan of care. Patient/Family Education Needs: Review of discharge instruction, activity, limitations, and plan of care. Discuss ask me three.
== END 2025-02-11 11:32 | disposition home or self-care (01) | DRG 392 ==
LOC: ER 13:04 → MS 14:28
PROVIDERS: Admitting Provider Family Medicine; Emergency Provider Registered Nurse Emergency; PCP Physician Assistant; Responsible Provider Family Medicine; Visit Provider Family Medicine
DX: K52.9 Noninfective gastroenteritis and colitis, unspecified (principal); I42.9 Cardiomyopathy, unspecified; J90 Pleural effusion, not elsewhere classified; R11.2 Nausea with vomiting, unspecified; K21.9 Gastro-esophageal reflux disease without esophagitis; I67.9 Cerebrovascular disease, unspecified; G47.33 Obstructive sleep apnea (adult) (pediatric); Z95.810 Presence of automatic (implantable) cardiac defibrillator; E03.9 Hypothyroidism, unspecified; I51.89 Other ill-defined heart diseases; M70.62 Trochanteric bursitis, left hip; M70.61 Trochanteric bursitis, right hip; J45.909 Unspecified asthma, uncomplicated; Z86.718 Personal history of other venous thrombosis and embolism; Z87.891 Personal history of nicotine dependence; M85.80 Other specified disorders of bone density and structure, unspecified site; M48.062 Spinal stenosis, lumbar region with neurogenic claudication; K74.00 Hepatic fibrosis, unspecified; Z79.899 Other long term (current) drug therapy; K40.90 Unilateral inguinal hernia, without obstruction or gangrene, not specified as recurrent; Z96.652 Presence of left artificial knee joint; D15.1 Benign neoplasm of heart; Z86.73 Personal history of transient ischemic attack (TIA), and cerebral infarction without residual deficits
CPT/HCPCS: 00123; 36415; 80048; 85027; 94640; 96361; 96374; 96375; 96376; 99222; 99285; J1650; 74177; 81003; 81015; 83605; 83735; 94664; 99223; 99233; 99239; J1885; J2270; J2765; J3490

== ENCOUNTER 2025-06-12 10:26 | Emergency (ER) | payer OTHER, SELFPAY ==
[2025-06-12] VITALS (13 sets, daily range): BP systolic 84–111; BP diastolic 41–52; PULSE 58–71; RESP 18; TEMP 36.9–37; O2SAT 91–96
--- NOTE | 2025-06-12 11:00 | DI.CT_ITS ---
Exam(s) CT ABDOMEN PELVIS W EXAM: CT ABDOMEN PELVIS W CLINICAL HISTORY: Pyelo/L. flank pain, eval stone, abscess. TECHNIQUE: Imaging Protocol: Axial computed tomography images with coronal and sagittal reformatted images were created and reviewed CONTRAST MATERIAL: Intravenous: Omnipaque 350 Contrast volume:70 ml Oral: no COMPARISON: CT CT ABDOMEN PELVIS W from 07/19/[address] ABDOMEN PELVIS W from 02/09/2025 FINDINGS: ABDOMEN and PELVIS: Exam is limited by streak artifact secondary to pacemakers as well as arm positioning. Lung Bases: No acute findings. Heart is markedly enlarged. The right diaphragm is again noted to be elevated. There is adjacent atelectasis. Liver: Normal density. No suspicious mass. Gallbladder and biliary tract: Question of tiny layering stones or sludge.. No wall thickening or pericholecystic fluid. No biliary dilation. Pancreas: Normal density. No abnormal calcifications or inflammatory process. No evidence of mass. Spleen: Normal. Kidneys: Normal size, contour and axis. No radiodense stones.. There is mild left hydronephrosis. There is mild dilatation of the collecting system is well as urothelial enhancement. There is no evidence of ureteral or bladder calculus. There is mild left perinephric stranding. Findings could be secondary to pyelonephritis. Recently passed stone is also possibility. There is no discrete abscess. No suspicious masses seen. Adrenal glands: Stable small adrenal nodules from 2022, likely benign adenomas. No follow-up. There has been mild interval increase in size of previously noted mass at the posterior aspect of the right kidney compared with 202. Vasculature: Abdominal aorta non-dilated. Soft tissues: Previously noted right inguinal hernia is no longer present. Bladder: Diffuse wall thickening, consistent with outlet obstruction related to enlarged prostate.. No calculi.No focal mass. Bowel: No obstruction. No bowel wall thickening. Appendix normal. Severe diverticulosis in the sigmoid region. Peritoneal cavity: Trace amount of fluid in the low pelvis. No focal collection. No mesenteric inflammatory response. No free air. Bones: Hardware is again noted in the right femur. Hardware lower lumbar spine. Degenerative changes in the hips and lumbar spine. Reproductive organs: The prostate is markedly enlarged and impresses on the base of the bladder. Lymph nodes: No pathologically enlarged lymph nodes. IMPRESSION:: Mild left hydronephrosis, urothelial enhancement and perinephric stranding. The nephrogram is patchy which likely represents pyelonephritis. A recently passed stone is also possible. 1.7 cm circumscribed mass at the posterior right kidney has increased in size from 2022. Nonemergent MRI could be considered for further evaluation if not already performed elsewhere. Stable appearance of the adrenal glands. The preliminary [facility] report was reviewed. RADIATION DOSE DELIVERED: Total DLP DATA REPOSITORY: All CT scans at this facility are submitted to the National Radiology Data Registry (NRDR) Dose Index Registry (DIR) with the [employer] (A[employer]). RADIATION OPTIMIZATION: All CT scans at this facility use at least one of these dose optimization techniques: automated exposure control; mA and/or kV adjustment per patient size (includes targeted exams where dose is matched to clinical indication); or iterative reconstruction.
[2025-06-12 11:04] LABS: Glucose Negative (Negative)
--- NOTE | 2025-06-12 11:04 | W.ED.GENAD ---
Discharge Plan Disposition Patient Disposition: Home Condition: Stable Discharge Details Clinical Impression: Acute pyelonephritis, Left kidney mass Primary Care Provider: Romana Cox ED Provider: Anastasia Dave Home Meds and New Rx's Prescriptions: New cefpodoxime 200 mg tablet 200 mg PO BID 10 Days Qty: 20 0RF Rx Instructions: must administer with a meal/food No Action eplerenone 25 mg tablet 50 mg PO DAILY Xiidra 5 % dropperette 1 drp ophthalmic (eye) BID Rx Instructions: administer approximately 12 hours apart diclofenac sodium [Arthritis Pain (diclofenac)] 1 % gel 2 g topical QID Rx Instructions: apply to single elbow, wrist or hand; for hand includes palm/fingers/back of hand loratadine 10 mg tablet 10 mg PO DAILY fluticasone propionate [Flonase Allergy Relief] 50 mcg/actuation spray,suspension 1 spray intranasal DAILY Rx Instructions: administer into each nostril epinephrine 0.3 mg/0.3 mL auto-injector 0.3 mg IM ONCE Rx Instructions: as a single dose; may repeat once bisoprolol fumarate 5 mg tablet 5 mg PO DAILY apixaban 5 mg tablet 5 mg PO BID trospium 20 mg tablet 20 mg PO BID Rx Instructions: administer on an empty stomach dofetilide 500 mcg capsule 500 mcg PO Q12H finasteride 5 mg tablet 5 mg PO DAILY magnesium oxide 140 mg capsule 140 mg PO DAILY omeprazole 20 mg capsule,delayed release(DR/EC) 40 mg PO DAILY modafinil 200 mg tablet 200 mg PO BID PRN lidocaine 5 % adhesive patch,medicated 1 patch topical DAILY Rx Instructions: leave on most painful area for up to 12 hrs furosemide 80 mg tablet 40 mg PO DAILY trospium 20 mg tablet 20 mg PO DAILY Rx Instructions: administer on an empty stomach montelukast 10 MG tablet 10 mg PO DAILY albuterol sulfate [ProAir HFA] 200 PUFF HFA aerosol inhaler 2 puff Inhalation BID PRN (Reason: Wheezing) levothyroxine 25 MCG tablet 75 mcg PO DAILY fluticasone propion-salmeterol [Advair Diskus] 100-50 mcg/dose blister with device 1 inh inhalation BID acetaminophen 500 mg tablet 1,000 mg PO Q8H PRN Qty: 90 0RF Rx Instructions: Take two tablets up to every 8 hours as needed for pain ondansetron 4 mg tablet,disintegrating 4 mg PO Q6H PRN (Reason: nausea and vomiting) Qty: 30 0RF promethazine 25 mg suppository 25 mg DE Q6H PRN (Reason: nausea and vomiting) Qty: 12 0RF silodosin [Rapaflo] 8 mg capsule 8 mg PO DAILY Rx Instructions: must administer with a meal/food Discharge Instructions Instructions: Urinary Tract Infection, Adult ED Additional Instructions: You were seen in the emergency department today for evaluation of pain when you urinated and fever, and were found to have a kidney/urinary tract infection. In our department you had a full physical examination performed, received IV fluids for rehydration, and had laboratory studies that showed the infection in your urinary tract. Your kidneys appear healthy, and otherwise your labs did not have any significant changes from your normal. We did obtain a CT scan of your abdomen and pelvis to evaluate for any possible renal stones. You do not have any kidney stones but this did confirm our suspicion of kidney infection. You received your first dose of antibiotics here in the emergency department, and I have sent a prescription for antibiotics to your pharmacy. Please take all of this antibiotic until it is gone, even if you start to feel better. I have sent your urine to be cultured, if a bacteria grows that requires us to change the antibiotic you will be contacted by phone. Please contact your primary care provider to schedule a follow-up appointment in the next few days. I recommend that you return immediately to the emergency department if you develop a fever that does not improve with medications, have urinary retention or unable to pass urine, or have any other symptoms that cause you concern. Please follow-up with your primary care provider in the next few days to discuss this visit and any symptoms that change, worsen, or persist. Thank you for allowing us to be part of your care. Stand Alone Forms: Portal Information HPI General Mode of arrival: ambulatory. Date/Time Provider Initiated Documentation: 06/12/25 10:30. Limitations to Documentation: no limitations. Information obtained by: patient, family and old records reviewed. HPI Narrative: This is a 75-year-old male patient with a past medical history significant for cardiomyopathy, mitral regurgitation, pacemaker, history of DVT on anticoagulation with Eliquis, and a history of BPH and bladder irritation, presenting for evaluation of dysuria and change in urine smell. The patient reports that his symptoms started yesterday, he has noticed a new smell to his urine and is painful when he passes urine. Had some left-sided flank pain earlier which has resolved, states that he had a fever to 101 at home, took a dose of Tylenol at 9 AM this morning. The patient states that he sometimes has a sensation of incomplete bladder emptying, denies hematuria, abdominal pain. Has been taking his medications as prescribed but has not had his diuretics or his antispasmodics yet today. He reports some decreased oral intake this morning, but denies nausea or vomiting. No diarrhea or constipation reported. Related Data Home Medications Medication Instructions Recorded Confirmed montelukast 10 mg tablet 10 mg PO DAILY 01/25/13 06/12/25 albuterol sulfate 90 mcg/actuation 2 puff inhalation BID PRN Wheezing 10/02/15 06/12/25 aerosol inhaler (ProAir HFA) levothyroxine 25 mcg tablet 75 mcg PO DAILY 12/14/17 06/12/25 diclofenac sodium 1 % topical gel 2 g topical QID 04/22/22 06/12/25 (Arthritis Pain (diclofenac)) fluticasone propionate 50 1 spray intranasal DAILY 04/22/22 06/12/25 mcg/actuation nasal spray,suspension (Flonase Allergy Relief) lifitegrast 5 % eye drops in a 1 drp ophthalmic (eye) BID 04/22/22 06/12/25 dropperette (Xiidra) loratadine 10 mg tablet 10 mg PO DAILY 04/22/22 06/12/25 finasteride 5 mg tablet 5 mg PO DAILY 06/11/22 06/12/25 magnesium oxide 140 mg capsule 140 mg PO DAILY 06/11/22 06/12/25 omeprazole 20 mg capsule,delayed 40 mg PO DAILY 06/11/22 06/12/25 release modafinil 200 mg tablet 200 mg PO BID PRN 06/20/22 06/12/25 lidocaine 5 % topical patch 1 patch topical DAILY 07/08/22 06/12/25 epinephrine 0.3 mg/0.3 mL 0.3 mg IM ONCE 07/23/22 06/12/25 injection, auto-injector bisoprolol fumarate 5 mg tablet 5 mg PO DAILY 03/20/23 06/12/25 acetaminophen 500 mg tablet 1,000 mg (2 x 500 mg) PO Q8H PRN 06/03/23 06/12/25 pain #90 tabs fluticasone 100 mcg-salmeterol 50 1 inh inhalation BID 06/03/23 06/12/25 mcg/dose blistr powdr for inhalation (Advair Diskus) apixaban 5 mg tablet 5 mg PO BID 09/08/23 06/12/25 dofetilide 500 mcg capsule 500 mcg PO Q12H 12/01/23 06/12/25 eplerenone 25 mg tablet 50 mg PO DAILY 12/01/23 06/12/25 furosemide 80 mg tablet 40 mg PO DAILY 12/01/23 06/12/25 trospium 20 mg tablet 20 mg PO BID 12/01/23 06/12/25 ondansetron 4 mg disintegrating 4 mg PO Q6H PRN nausea and 02/08/25 06/12/25 tablet vomiting #30 tabs promethazine 25 mg rectal 25 mg DE Q6H PRN nausea and 02/08/25 06/12/25 suppository vomiting #12 ea silodosin 8 mg capsule (Rapaflo) 8 mg PO DAILY 02/08/25 06/12/25 trospium 20 mg tablet 20 mg PO DAILY 02/23/25 06/12/25 cefpodoxime 200 mg tablet 200 mg PO BID 10 days #20 tabs 06/12/25 Previous Rx's Medication Instructions Recorded acetaminophen 500 mg tablet 1,000 mg (2 x 500 mg) PO Q8H PRN 06/03/23 pain #90 tabs ondansetron 4 mg disintegrating 4 mg PO Q6H PRN nausea and 02/08/25 tablet vomiting #30 tabs promethazine 25 mg rectal 25 mg DE Q6H PRN nausea and 02/08/25 suppository vomiting #12 ea cefpodoxime 200 mg tablet 200 mg PO BID 10 days #20 tabs 06/12/25 Allergies Allergy/AdvReac Type Severity Reaction Status Date / Time azithromycin Allergy Severe Cardiac Verified 06/12/25 10:45 Dysrhythmia peanut Allergy Severe Anaphylaxsi Verified 06/12/25 10:45 s peas Allergy Severe Anaphylaxsi Verified 06/12/25 10:45 s tree nut Allergy Severe Anaphylaxsi Verified 06/12/25 10:45 s amoxicillin Allergy Mild Skin Rash Verified 06/12/25 10:45 gabapentin AdvReac Intermediate Dizziness/L Verified 06/12/25 10:45 ighthead lisinopril AdvReac cough Verified 06/12/25 10:45 sutures Allergy Unknown inflammed Uncoded 06/12/25 10:45 General Stated Complaint: Urinary KANDI: 3 Exam Narrative Exam Narrative: Gen: Awake and alert, in no apparent distress HEENT: Non-icteric sclera Neck: Supple Lungs: No apparent respiratory distress, normal respiratory effort. Lung sounds clear and equal bilaterally without wheezes, rhonchi, rales CV: Appears well perfused, heart with regular rate and rhythm, strong distal pulses Abdomen: Non-distended, soft, nontender to palpation without rigidity, rebound, or guarding. MSK: Moves 4 extremities without apparent limitation in ROM. No CVA tenderness. No peripheral edema Skin: Visualized skin without rashes, cyanosis. Neuro: Normal Gait, no obvious focal deficits or facial asymmetry. Speaks in full, clear sentences. Psych: Appropriate for situation. Course Vital Signs Vital signs: Vital Signs Temperature 36.9 C 06/12/25 10:37 Pulse 58 L 06/12/25 10:37 Respiratory Rate 18 06/12/25 10:37 Blood Pressure 84/47 L 06/12/25 10:37 Pulse Oximetry 91 L 06/12/25 10:37 Temperature 36.9 C 06/12/25 10:53 Temperature Source Oral 06/12/25 10:53 Pulse 58 L 06/12/25 10:53 Respiratory Rate 18 06/12/25 10:53 Blood Pressure 84/47 L 06/12/25 10:53 Blood Pressure Position Sitting 06/12/25 10:53 Pulse Oximetry 91 L 06/12/25 10:53 Oxygen Delivery Method Room Air 06/12/25 10:53 Oxygen Flow Rate 0 06/12/25 10:53 Pain Level 3 06/12/25 11:01 Medical Decision Making This is a 75-year-old male patient presenting for evaluation of dysuria, fever, and intermittent left flank pain. My differential includes but is not limited to urinary tract infection/pyelonephritis, certainly considered renal stone, there is no overlying skin changes on the left flank to suggest herpes zoster, no trauma to suggest musculoskeletal abnormalities. The patient's abdominal examination is quite benign, and I have a lower concern for bowel obstruction, mesenteric ischemia, diverticulitis, appendicitis, gastritis, hepatitis, cholecystitis, pancreatitis, etc. I considered urinary retention. The patient has a slightly low blood pressure in triage, is currently afebrile, we will provide him with a conservative 500 cc fluid bolus given his history of cardiomyopathy, obtain labs to include CBC, CMP, magnesium, lipase, urinalysis, and will obtain a bladder scan to evaluate for urinary retention. - I reviewed the patient's laboratory studies, which show a very mild leukocytosis to 12.7, with a stable anemia and thrombocytopenia. Chemistry panel is notable for slight elevation in BUN to 24 but no creatinine elevation or other acute kidney dysfunction. No significant electrolyte derangement noted, bilirubin is 1.5 today, which has been demonstrated on his most recent prior. Lipase is negative. Urinalysis notable for moderate blood, small leukocyte esterase and large pyuria with packed bacteria, concerning for urinary tract infection. However, given the blood, I feel it reasonable to proceed with CT imaging to ensure that this patient does not have an infected stone. I provided the patient with a gram of ceftriaxone for initial antibiosis. CT scan obtained and reviewed by myself, and I was able to review the radiology report as became available. It shows evidence of pyelonephritis with no obstructive pathology identified. Incidentally noted renal mass has increased in size but does not require urgent imaging at this time. On repeat evaluation the patient was able to pass urine easily, and feels improved after fluids. His vital signs have normalized. I sent a prescription for cefpodoxime to his pharmacy for ongoing treatment of his pyelonephritis. At this time, the patient has had a full medical evaluation and is safe for discharge to home. They are hemodynamically stable, ambulatory, and tolerating PO. They are understanding of the follow-up plan and return precautions. They left our facility without incident. Anastasia Dave MD [facility] All Active Problems (Updated 06/12/25 @ 13:32 by Anastasia Dave MD) Left kidney mass (Acute) Acute pyelonephritis (Acute) Anticoagulant long-term use (Acute) Nausea vomiting and diarrhea (Acute) Muscle strain of left thigh (Acute) Painful total knee replacement, left (Acute) Greater trochanteric bursitis of both hips (Acute) L HIP: DEPO MEDROL 12/01/23 R HIP: DEPO MEDROL 12/01/23 History of total left knee replacement (Acute 06/03/23) Myxomatous mitral valve (Acute) Cardiomyopathy (Acute) Intertrochanteric fracture of right hip (Acute 09/18/15) Asthma (Chronic) GERD (gastroesophageal reflux disease) (Chronic) H/O tobacco use, presenting hazards to health (Chronic) H/O deep venous thrombosis (Chronic) Multiple h/o tia (Chronic) Impacted esophageal foreign body (Acute) Traumatic arthropathy, left shoulder (Acute) depo medrol: 03/20/23; 12/19/22; 09/23/22; 06/21/22 Land's esophagus without dysplasia (Acute) Benign neoplasm of skin (Acute) Osteoarthritis (arthritis due to wear and tear of joints) (Chronic) Osteopenia (Acute) Dysphagia (Acute) Chronic GERD (Acute) Medical History EUSEBIA (obstructive sleep apnea) CPAP intolerant - inspire implants DOS: 10/24/2022 Hypothyroidism Liver fibrosis Right heart failure Spinal stenosis, lumbar region with neurogenic claudication Pityriasis lichenoides chronica Dermatitis Chronic gingivitis, plaque induced Cervicalgia Cerebrovascular disease 04/09/2005 Paresthesia of upper limb (07/12/13) Surgical History History of hand surgery Bilateral hand ligament repairs ~2015 and ~2016 History of nasal septoplasty (~2019) H/O umbilical hernia repair History of lung surgery VATS Hx of fracture of femur s/p right repair w/odessa placement Hx of total knee arthroplasty (09/03/98) History of shoulder surgery (2012) Right hemiarthroplasty Hx of tonsillectomy History of cervical spinal surgery History of back surgery L4-L5 Presence of automatic cardioverter/defibrillator (AICD) (12/17/17) s/p right coronary cusp PVD ablation AICD EGD - MAC (12/14/17) Social History Smoking/Tobacco Use Status: Former Tobacco Use Quit Date: 07/21/20 Smoking risk assessment performed?: Yes Alcohol Intake: former Drug use: Never Substance use type: does not use Housing: house Do you feel safe at home: Yes Do you feel safe in your relationship?: Yes
[2025-06-12] MEDS: Normal Saline 500 ML IV (11:08)
[2025-06-12 11:11] LABS: C & S Indicated? Yes; WBC >50 HPF (0-5)
[2025-06-12 11:15] LABS: Abs Immature Grans 0.06 10^3/uL (0.0-0.06); HCT 38.0 % (40.0-50.0); HGB 12.7 g/dL (13.5-17.5); Immature Grans % 0.5 %; MCH 31.2 pg (27.0-33.0); MCHC 33.4 % (32.0-36.0); MCV 93 fL (80-95); MPV 9.5 fL (8.0-11.0); Platelet Count 105 10^3/uL (130-400); RBC 4.07 10^6/uL (4.36-5.78); RDW 12.8 % (11.8-14.1); RDW-SD 44.1 fL; WBC 12.73 10^3/uL (4.4-10.8)
[2025-06-12] MEDS: cefTRIAXone 1 GM/50 ML BAG IVPB (11:24)
[2025-06-12 11:39] LABS: Lipase 20 U/L (<53)
[2025-06-12 11:41] LABS: ALT 26 U/L (10-49); AST 33 U/L (<34); Albumin 3.8 g/dL (3.4-5.0); Alkaline Phosphatase 119 U/L (46-116); Anion Gap 9.1 mmol/L (3-11); BUN 24 mg/dL (9-23); Bilirubin, Total 1.50 mg/dL (0.2-1.2); CO2 27.6 mmol/L (20.0-31.0); Calcium 8.8 mg/dL (8.3-10.6); Chloride 98 mmol/L (98-107); Glucose 110 mg/dL (74-106); Potassium 4.0 mmol/L (3.5-5.1); Sodium 135 mmol/L (136-145); Total Protein 6.6 g/dL (5.7-8.2)
[2025-06-12] MEDS: Omnipaque 350 MG/ML 100 ML BTL IJ (12:09)
[2025-06-12] MEDS: Normal Saline - Diluent 50 ML VIAL IJ (12:09)
--- NOTE | 2025-06-12 13:00 | DI.VRAD_ITS ---
PROCEDURE INFORMATION: Exam: CT Abdomen And Pelvis With Contrast Exam date and time: 06/12/2025 11:50 AM Age: 75 years old Clinical indication: Other: Pyelo/l. Flank pain, eval stone, abscess TECHNIQUE: Imaging protocol: Computed tomography of the abdomen and pelvis with contrast. Contrast material: OMNIPAQUE 350; Contrast volume: 75 ml; Contrast route: INTRAVENOUS (IV); COMPARISON: CT ABDOMEN PELVIS W 02/09/2025 9:53 AM FINDINGS: Tubes, catheters and devices: AICD leads in the right side of the heart. Lungs: Centrilobular emphysematous changes in lungs. Right lung volume is low with elevation of right hemidiaphragm. Mild airspace opacity in the right lung base, probably atelectasis similar to prior. Diaphragm: This is a small hiatal hernia. Liver: No mass. Contour of the liver is nodular suspicious of underlying hepatocellular disease. Gallbladder and biliary ducts: Normal. No calcified stones. No ductal dilation. Pancreas: Normal. No ductal dilation. Spleen: Normal. No splenomegaly. Adrenal glands: Stable 1.9 x 1.6 cm nodule in the lateral limb of the right adrenal gland. Stable multifocal nodules in the left adrenal gland. These may represent adenomas. Kidneys and ureters: Striated hazy nephrograms in the left kidney within the upper and the lower pole kidney suspicious of pyelonephritis. Mild hazy striated nephrogram suspected in the right upper pole kidney. There is 1.7 x 1 5 cm indeterminate lesion in the posterior exophytic right lower pole kidney, unchanged (60 series 7). There is a 0.7 cm hypodensity in the medial left lower pole kidney, too small to be characterized, probably a cyst. Stomach and bowel: Extensive diverticulosis of the sigmoid colon without acute inflammation. Remaining large bowel demonstrates moderate fecal volume in the colon. There is mild diffuse thickening of the stomach and proximal small bowel. There is mild diffuse mesenteric edema. Appendix: No evidence of appendicitis. Intraperitoneal space: There is mild ascites in the pelvis and perihepatic and perisplenic spaces. Vasculature: Unremarkable. No abdominal aortic aneurysm. Lymph nodes: Stable 1.6 x 1.9 cm retrocrural nodule or lymph node (36 series 11). Urinary bladder: Urinary bladder wall is thickened concerning for cystitis. Reproductive: Prostate is enlarged with central gland mildly protrudes into the bladder lumen. There is mild hydroceles bilaterally Bones/joints: There is a intramedullary odessa and nail in the proximal right femur overlying chronic healed fracture. Mild grade 1 retrolisthesis of L2 on L3 and L1-L2. Discectomy of L4-L5 with placement of interbody graft. Pedicular screws at L4 and L5 which inter connected by rods. There is laminectomy of L5. Soft tissues: See Bones/joints finding. IMPRESSION: 1. Striated hazy nephrogram in the left kidney and mild struck nephrogram suspected in the right upper pole kidney suspicious of pyelonephritis. There is no hydronephrosis or nephrolithiasis or abscess. 2. Urinary bladder wall is thickened suspicious of cystitis. 3. Prostate is enlarged and protrudes into the bladder lumen. 4. Stable 1.7 x 1.5 cm indeterminate exophytic lesion in the posterior right kidney. This can be further characterized with MRI with IV contrast. 5. Diverticulosis of the sigmoid colon without acute inflammation. 6. Mild ascites and diffuse mesenteric edema. 7. Mild diffuse mucosal thickening of the small bowel and stomach. Please consider clinical correlation to exclude gastroenteritis. Dictated and Authenticated by: Charlie Zafar MD. Orderin [facility] Isaiah Oconnor MD
== END 2025-06-12 13:35 | disposition home or self-care (01) ==
PROVIDERS: Emergency Provider Emergency Medicine; PCP Physician Assistant
DX: N10 Acute pyelonephritis (principal); N28.89 Other specified disorders of kidney and ureter
CPT/HCPCS: 99284; 99285; 36415; 80053; 83690; 87077; 96361; 96365; 74177; 81003; 81015; 83605; 85025; 87086; 87186; J0696; J3490